=== PATIENT | female | born 1955 | race Caucasian/White ===

== ENCOUNTER → 2017-12-17 10:12 | Outpatient (CLI) | payer MEDICARE, SELFPAY ==
[2017-12-17 14:59] LABS: Absolute Lymphocyte Count 2.44 X10^3/ul (0.83-4.51); Absolute Neutrophil Count 2.7 X10^3/uL (2.0-7.7); Basophil# 0.03 X10^3/uL; Basophil% 0.5 % (0-1); Eosinophil# 0.23 X10^3/uL; Eosinophils% 3.8 % (0-5); Hematocrit 42.7 % (37-47); Hemoglobin 13.4 g/dl (12.0-15.0); Lymphocyte # 2.44 X10^3/ul (4.0); Lymphocyte % 40.5 % (19-41); Mean Corp Hgb Conc 31.4 g/gl (32-36); Mean Corpuscular Hgb 30.5 pg (27.0-32.0); Mean Platelet Vol. 12.6 fl (6.2-12.0); Monocyte# 0.62 X10^3/uL; Monocyte% 10.3 % (0-10); Neutrophil # 2.69 X10^3/uL (2.7-7.7); Neutrophil % 44.6 % (47-70); POSITIVE COUNT NO; POSITIVE DIFFERENTIAL NO; POSITIVE MORPHOLOGY NO; Platelet Count 211 K/mm3 (150-450); RBC Distribution Width CV 13.9 % (11.6-14.6); RBC Distribution Width SD 49.4 fl (35.1-43.9)
[2017-12-17 15:17] LABS: Vitamin D,25 Hydroxy 24.4 ng/mL (29.95-100.01)
[2017-12-17 15:28] LABS: ALB/GLOB Ratio 0.9 RATIO (0.9-2.4); AST(SGOT) 41 U/L (15-37); Alanine Aminotransfer ALT/SGPT 57 U/L (13-56); Albumin, Serum 3.7 g/dL (3.2-5.0); Alkaline Phosphatase 79 U/L (45-117); Anion Gap 7 (5-15); BUN 19 mg/dL (7-18); BUN/Creat Ratio 18.6 RATIO (10-20); Calcium,Total 9.1 mg/dL (8.5-10.1); Chloride 104 mmol/L (98-107); Cholesterol 190 mg/dL (200); Creatinine, Serum 1.02 mg/dL (0.55-1.02); EST Glomerular Filtration Rate 58 mL/min (>60); Est Glom Filt Rate - Afr Amer 70 mL/min (>60); Globulin 4.3 g/dL (2.2-4.2); Glucose 114 mg/dL (74-106); High Density Lipoprotein 58 mg/dL; Potassium 4.1 mmol/L (3.5-5.1); Sodium Level 139 mmol/L (136-145); Thyroid Stim Hormone (TSH) 4.65 uIU/mL (0.358-3.74); Triglycerides 180 mg/dL; Very Low Density Lipoprotein 36 mg/dL (5-40)
== END ==
PROVIDERS: Family Provider Family Medicine Geriatric Medicine; PCP Family Medicine Geriatric Medicine; Visit Provider Family Medicine Geriatric Medicine
DX: E55.9 Vitamin D deficiency, unspecified (principal); E78.4 Other hyperlipidemia; I10 Essential (primary) hypertension
CPT/HCPCS: 36415; 80053; 80061; 82306; 84443; 85025

== ENCOUNTER → 2018-03-14 10:10 | Outpatient (CLI) | payer MEDICARE, SELFPAY ==
[2018-03-14 13:20] LABS: Thyroid Stim Hormone (TSH) 1.28 uIU/mL (0.358-3.74)
== END ==
PROVIDERS: Family Provider Family Medicine Geriatric Medicine; PCP Family Medicine Geriatric Medicine; Visit Provider Family Medicine Geriatric Medicine
DX: E03.9 Hypothyroidism, unspecified (principal)
CPT/HCPCS: 36415; 84443

== ENCOUNTER → 2018-06-14 07:24 | Outpatient (CLI) | payer MEDICARE, SELFPAY | PROVIDERS: Family Provider Family Medicine Geriatric Medicine; PCP Family Medicine Geriatric Medicine; Visit Provider Internal Medicine Gastroenterology | DX: K74.60 Unspecified cirrhosis of liver (principal) | CPT/HCPCS: 76705 ==

== ENCOUNTER → 2018-06-17 11:37 | Outpatient (CLI) | payer MEDICARE, SELFPAY ==
[2018-06-17 13:31] LABS: Absolute Neutrophil Count 3.4 X10^3/uL (2.0-7.7); Basophil# 0.03 X10^3/uL; Basophil% 0.5 % (0-1); Eosinophil# 0.28 X10^3/uL; Eosinophils% 4.5 % (0-5); Hematocrit 47.1 % (37-47); Hemoglobin 15.4 g/dl (12.0-15.0); Lymphocyte % 30.8 % (19-41); Mean Corp Hgb Conc 32.7 g/gl (32-36); Mean Corpuscular Hgb 32.4 pg (27.0-32.0); Mean Corpuscular Volume 98.9 fL (81-99); Mean Platelet Vol. 13.3 fl (6.2-12.0); Monocyte# 0.56 X10^3/uL; Monocyte% 9.1 % (0-10); Neutrophil # 3.37 X10^3/uL (2.7-7.7); Neutrophil % 54.8 % (47-70); Platelet Count 182 K/mm3 (150-450); RBC Distribution Width CV 12.9 % (11.6-14.6); RBC Distribution Width SD 46.3 fl (35.1-43.9); Red Blood Count 4.76 M/mm3 (4.2-5.4); White Blood Count 6.2 K/mm3 (4.4-11.0)
[2018-06-17 13:33] LABS: POSITIVE COUNT NO; POSITIVE DIFFERENTIAL NO; POSITIVE MORPHOLOGY NO
[2018-06-17 13:54] LABS: Vitamin D,25 Hydroxy 14.2 ng/mL (29.95-100.01)
[2018-06-17 14:04] LABS: ALB/GLOB Ratio 0.9 RATIO (0.9-2.4); AST(SGOT) 90 U/L (15-37); Alanine Aminotransfer ALT/SGPT 119 U/L (13-56); Albumin, Serum 3.9 g/dL (3.2-5.0); Alkaline Phosphatase 84 U/L (45-117); Anion Gap 10 (5-15); BUN 11 mg/dL (7-18); BUN/Creat Ratio 11.3 RATIO (10-20); Calcium,Total 9.5 mg/dL (8.5-10.1); Chloride 102 mmol/L (98-107); Cholesterol 210 mg/dL (200); Creatinine, Serum 0.97 mg/dL (0.55-1.02); EST Glomerular Filtration Rate 61 mL/min (>60); Est Glom Filt Rate - Afr Amer 74 mL/min (>60); Globulin 4.5 g/dL (2.2-4.2); Glucose 116 mg/dL (74-106); High Density Lipoprotein 60 mg/dL; Potassium 4.5 mmol/L (3.5-5.1); Protein, Total 8.4 g/dL (6.4-8.2); Sodium Level 140 mmol/L (136-145); Thyroid Stim Hormone (TSH) 1.31 uIU/mL (0.358-3.74); Triglycerides 128 mg/dL; Very Low Density Lipoprotein 26 mg/dL (5-40)
== END ==
PROVIDERS: Family Provider Family Medicine Geriatric Medicine; PCP Family Medicine Geriatric Medicine; Visit Provider Family Medicine Geriatric Medicine
DX: E55.9 Vitamin D deficiency, unspecified (principal); E78.4 Other hyperlipidemia; I10 Essential (primary) hypertension
CPT/HCPCS: 36415; 80053; 80061; 82306; 84443; 85025

== ENCOUNTER → 2018-06-26 13:39 | Outpatient (CLI) | payer MEDICARE, SELFPAY ==
[2018-06-26 16:11] LABS: AST(SGOT) 93 U/L (15-37); Alanine Aminotransfer ALT/SGPT 132 U/L (13-56); Albumin, Serum 3.9 g/dL (3.2-5.0); Alkaline Phosphatase 88 U/L (45-117); Bilirubin, Direct 0.25 mg/dL (0.00-0.30); Globulin 4.2 g/dL (2.2-4.2); Protein, Total 8.1 g/dL (6.4-8.2)
[2018-06-28 11:31] LABS: AFP, Tumor Marker 1.9 ng/mL (0.0-8.3)
== END ==
PROVIDERS: Family Provider Family Medicine Geriatric Medicine; PCP Family Medicine Geriatric Medicine; Visit Provider Internal Medicine Gastroenterology
DX: K74.60 Unspecified cirrhosis of liver (principal)
CPT/HCPCS: 36415; 80076; 82105

== ENCOUNTER → 2018-12-18 10:54 | Outpatient (CLI) | payer MEDICARE, SELFPAY ==
[2017-07-30 23:32] VITALS: BMI 28.3
[2018-12-18 13:01] LABS: Absolute Lymphocyte Count 1.95 X10^3/ul (0.83-4.51); Absolute Neutrophil Count 2.8 X10^3/uL (2.0-7.7); Basophil# 0.04 X10^3/uL; Basophil% 0.7 % (0-1); Eosinophil# 0.22 X10^3/uL; Eosinophils% 3.9 % (0-5); Hematocrit 43.4 % (37-47); Lymphocyte # 1.95 X10^3/ul (4.0); Lymphocyte % 34.3 % (19-41); Mean Corp Hgb Conc 32.3 g/gl (32-36); Mean Corpuscular Hgb 33.3 pg (27.0-32.0); Mean Corpuscular Volume 103.1 fL (81-99); Mean Platelet Vol. 12.8 fl (6.2-12.0); Monocyte% 12.3 % (0-10); Neutrophil # 2.76 X10^3/uL (2.7-7.7); Neutrophil % 48.6 % (47-70); Platelet Count 152 K/mm3 (150-450); RBC Distribution Width CV 13.4 % (11.6-14.6); RBC Distribution Width SD 50.2 fl (35.1-43.9); Red Blood Count 4.21 M/mm3 (4.2-5.4); White Blood Count 5.7 K/mm3 (4.4-11.0)
[2018-12-18 13:02] LABS: POSITIVE COUNT NO; POSITIVE DIFFERENTIAL NO; POSITIVE MORPHOLOGY NO
[2018-12-18 13:18] LABS: ALB/GLOB Ratio 0.8 RATIO (0.9-2.4); AST(SGOT) 145 U/L (15-37); Alanine Aminotransfer ALT/SGPT 139 U/L (13-56); Albumin, Serum 3.7 g/dL (3.2-5.0); Alkaline Phosphatase 89 U/L (45-117); Anion Gap 11 (5-15); BUN 19 mg/dL (7-18); BUN/Creat Ratio 19.2 RATIO (10-20); Chloride 104 mmol/L (98-107); Cholesterol 182 mg/dL (200); Creatinine, Serum 0.99 mg/dL (0.55-1.02); EST Glomerular Filtration Rate 60 mL/min (>60); Est Glom Filt Rate - Afr Amer 73 mL/min (>60); Globulin 4.4 g/dL (2.2-4.2); Glucose 117 mg/dL (74-106); High Density Lipoprotein 54 mg/dL; Potassium 4.3 mmol/L (3.5-5.1); Protein, Total 8.1 g/dL (6.4-8.2); Sodium Level 140 mmol/L (136-145); Thyroid Stim Hormone (TSH) 1.45 uIU/mL (0.358-3.74); Triglycerides 99 mg/dL; Very Low Density Lipoprotein 20 mg/dL (5-40)
[2018-12-18 13:20] LABS: Vitamin D,25 Hydroxy 15.8 ng/mL (29.95-100.01)
== END ==
PROVIDERS: Family Provider Family Medicine Geriatric Medicine; PCP Family Medicine Geriatric Medicine; Visit Provider Family Medicine Geriatric Medicine
DX: E55.9 Vitamin D deficiency, unspecified (principal); E78.49 Other hyperlipidemia; I10 Essential (primary) hypertension
CPT/HCPCS: 36415; 80053; 80061; 82306; 84443; 85025

== ENCOUNTER → 2019-02-06 10:08 | Outpatient (CLI) | payer MEDICARE, SELFPAY ==
--- NOTE | 2019-02-06 10:11 | BI_ITS ---
MAMMOGRAPHY - BILATERAL SCREENING REASON FOR EXAM: Female, 63 years old. Routine annual screening examination. PERTINENT HISTORY: Non-contributory. Remote left stereotactic breast biopsy. TECHNIQUE: Digital bilateral breast jitendra (3D mammographic acquisition) in the CC and MLO projections. 2-D mediolateral oblique (MLO) and craniocaudad (CC) views of both breasts were obtained. CAD: Full Field Digital Mammography with Computer Added Detection was performed. COMPARISON: Comparison is made with prior study dated January 11, 2017 and February 09, 2015. FINDINGS: Breast Composition: The breasts are heterogeneously dense, which may obscure small masses. There are no dominant masses or suspicious calcifications. No other significant abnormalities are identified. There has been no significant change since the prior study. BI/SCREENING MAMM (CAD), BILAT IMPRESSION: Stable bilateral screening mammogram. Yearly follow-up mammogram recommended. (A) ASSESSMENT CATEGORY: BIRADS Category 1: Negative. A letter regarding these results will be sent to the patient by the facility within 30 days. Approximately 10% of breast cancers are not detected by mammography. A normal mammogram should not delay biopsy of a clinically suspicious abnormality. [id number] Electronically Signed: Juvenal Arango, at 13:13 EDT , Service support ,
== END ==
PROVIDERS: Family Provider Family Medicine Geriatric Medicine; PCP Family Medicine Geriatric Medicine; Referring Provider Family Medicine Geriatric Medicine; Visit Provider Family Medicine Geriatric Medicine
DX: Z12.31 Encounter for screening mammogram for malignant neoplasm of breast (principal)
CPT/HCPCS: 77063; 77067

== ENCOUNTER → 2019-03-13 11:04 | Outpatient (CLI) | payer MEDICARE, SELFPAY ==
[2017-07-30 23:32] VITALS: BMI 28.3
[2019-03-13 12:44] LABS: AST(SGOT) 153 U/L (15-37); Alanine Aminotransfer ALT/SGPT 147 U/L (13-56); Albumin, Serum 3.6 g/dL (3.2-5.0); Alkaline Phosphatase 75 U/L (45-117); Bilirubin, Direct 0.22 mg/dL (0.00-0.30); Globulin 4.5 g/dL (2.2-4.2); Protein, Total 8.1 g/dL (6.4-8.2)
[2019-03-13 12:47] LABS: Absolute Lymphocyte Count 1.55 X10^3/ul (0.83-4.51); Absolute Neutrophil Count 4.4 X10^3/uL (2.0-7.7); Basophil# 0.03 X10^3/uL; Basophil% 0.4 % (0-1); Eosinophil# 0.09 X10^3/uL; Eosinophils% 1.3 % (0-5); Hematocrit 44.4 % (37-47); Hemoglobin 14.7 g/dl (12.0-15.0); Lymphocyte # 1.55 X10^3/ul (4.0); Lymphocyte % 22.8 % (19-41); Mean Corp Hgb Conc 33.1 g/gl (32-36); Mean Corpuscular Volume 99.6 fL (81-99); Mean Platelet Vol. 12.9 fl (6.2-12.0); Monocyte# 0.77 X10^3/uL; Monocyte% 11.3 % (0-10); Neutrophil # 4.35 X10^3/uL (2.7-7.7); Neutrophil % 63.9 % (47-70); Platelet Count 147 K/mm3 (150-450); RBC Distribution Width CV 12.7 % (11.6-14.6); RBC Distribution Width SD 45.8 fl (35.1-43.9); Red Blood Count 4.46 M/mm3 (4.2-5.4); White Blood Count 6.8 K/mm3 (4.4-11.0)
[2019-03-13 13:03] LABS: POSITIVE COUNT NO; POSITIVE DIFFERENTIAL NO; POSITIVE MORPHOLOGY NO
[2019-03-13 13:36] LABS: HIV - WCH Non-Reactive (Nonreactive)
[2019-03-18 08:09] LABS: HCV Quant. RNA PCR HCV Not Detected IU/mL (.); HEPATITIS B SURFACE AG Negative (Negative); QNTFERON TB Mitogen Value > 10.00 IU/mL (.); QNTFERON TB Nil Value 0.05 IU/mL (.); QNTFERON TB1+ Ag Value 0.04 IU/mL (.); QNTFERON TB2+ Ag Value 0.03 IU/mL (.)
[2019-03-18 16:43] LABS: AFP, Tumor Marker 2.2 ng/mL (0.0-8.3); Hep B Surface Antibodies Non Reactive (.); Hep C Antibodies >11.0 s/co ratio (0.0-0.9); Hepatitis B Core Ab Total Negative (Negative); QNTIFERON TB Positive Criteria Negative (Negative)
== END ==
PROVIDERS: Family Provider Family Medicine Geriatric Medicine; PCP Family Medicine Geriatric Medicine; Referring Provider Dermatology; Visit Provider Dermatology
DX: Z79.899 Other long term (current) drug therapy (principal); L40.0 Psoriasis vulgaris; L40.59 Other psoriatic arthropathy; L29.8 Other pruritus; K74.60 Unspecified cirrhosis of liver
CPT/HCPCS: 36415; 80076; 82105; 85025; 86480; 86703; 86704; 86706; 86803; 87340; 87522

== ENCOUNTER → 2019-06-20 08:39 | Outpatient (CLI) | payer MEDICARE, SELFPAY ==
[2017-07-30 23:32] VITALS: BMI 28.3
[2019-06-20 13:26] LABS: Absolute Lymphocyte Count 1.76 X10^3/uL (0.83-4.51); Absolute Neutrophil Count 4.3 X10^3/uL (2.0-7.7); Basophil# 0.06 X10^3/uL; Basophil% 0.8 % (0-1); Eosinophils% 2.8 % (0-5); Hematocrit 45.4 % (37-47); Hemoglobin 14.9 g/dL (12.0-15.0); Lymphocyte # 1.76 X10^3/ul (4.0); Lymphocyte % 24.7 % (19-41); Mean Corp Hgb Conc 32.8 g/dL (32-36); Mean Corpuscular Hgb 34.5 pg (27.0-32.0); Mean Corpuscular Volume 105.1 fL (81-99); Mean Platelet Vol. 13.2 fl (6.2-12.0); Monocyte% 11.2 % (0-10); NRBC Flagged by Analyzer 0 % (0-5); Neutrophil # 4.29 X10^3/uL (2.7-7.7); Neutrophil % 60.2 % (47-70); Platelet Count 165 K/mm3 (150-450); RBC Distribution Width CV 12.2 % (11.6-14.6); RBC Distribution Width SD 47.8 fl (35.1-43.9); Red Blood Count 4.32 M/mm3 (4.2-5.4); White Blood Count 7.1 K/mm3 (4.4-11.0)
[2019-06-20 13:41] LABS: Vitamin D,25 Hydroxy 22.8 ng/mL (29.95-100.01)
[2019-06-20 13:48] LABS: ALB/GLOB Ratio 0.8 RATIO (0.9-2.4); AST(SGOT) 182 U/L (15-37); Alanine Aminotransfer ALT/SGPT 189 U/L (13-56); Albumin, Serum 3.7 g/dL (3.2-5.0); Alkaline Phosphatase 80 U/L (45-117); Anion Gap 9 (5-15); BUN 11 mg/dL (7-18); BUN/Creat Ratio 11.4 RATIO (10-20); Calcium,Total 8.8 mg/dL (8.5-10.1); Chloride 106 mmol/L (98-107); Cholesterol 200 mg/dL (200); Creatinine, Serum 0.96 mg/dL (0.55-1.02); EST Glomerular Filtration Rate 62 mL/min (>60); Est Glom Filt Rate - Afr Amer 75 mL/min (>60); Globulin 4.5 g/dL (2.2-4.2); Glucose 126 mg/dL (74-106); High Density Lipoprotein 45 mg/dL; Potassium 3.7 mmol/L (3.5-5.1); Protein, Total 8.2 g/dL (6.4-8.2); Sodium Level 139 mmol/L (136-145); Thyroid Stim Hormone (TSH) 1.32 uIU/mL (0.358-3.74); Triglycerides 134 mg/dL; Very Low Density Lipoprotein 27 mg/dL (5-40)
== END ==
PROVIDERS: Family Provider Family Medicine Geriatric Medicine; PCP Family Medicine Geriatric Medicine; Visit Provider Family Medicine Geriatric Medicine
DX: E55.9 Vitamin D deficiency, unspecified (principal); E78.5 Hyperlipidemia, unspecified; I10 Essential (primary) hypertension
CPT/HCPCS: 36415; 80053; 80061; 82306; 84443; 85025

== ENCOUNTER 2019-07-28 10:48 | Emergency (ER) | payer MEDICARE, SELFPAY ==
[2019-07-28 10:49] VITALS: BP 143/75; PULSE 86; RESP 17; TEMP 36.6; O2SAT 96; BMI 31.1
[2019-07-28 11:19] LABS: Absolute Lymphocyte Count 2.03 X10^3/uL (0.83-4.51); Absolute Neutrophil Count 4.2 X10^3/uL (2.0-7.7); Basophil# 0.04 X10^3/uL; Basophil% 0.5 % (0-1); Eosinophil# 0.37 X10^3/uL; Hematocrit 46.6 % (37-47); Hemoglobin 15.1 g/dL (12.0-15.0); Lymphocyte # 2.03 X10^3/ul (4.0); Lymphocyte % 27.6 % (19-41); Mean Corp Hgb Conc 32.4 g/dL (32-36); Mean Corpuscular Hgb 32.5 pg (27.0-32.0); Mean Corpuscular Volume 100.4 fL (81-99); Mean Platelet Vol. 12.1 fl (6.2-12.0); Monocyte# 0.68 X10^3/uL; Monocyte% 9.3 % (0-10); NRBC Flagged by Analyzer 0 % (0-5); Neutrophil % 57.2 % (47-70); Platelet Count 166 K/mm3 (150-450); RBC Distribution Width CV 11.3 % (11.6-14.6); RBC Distribution Width SD 41.9 fl (35.1-43.9); Red Blood Count 4.64 M/mm3 (4.2-5.4); White Blood Count 7.4 K/mm3 (4.4-11.0)
[2019-07-28 11:31] LABS: AST(SGOT) 60 U/L (15-37); Alanine Aminotransfer ALT/SGPT 63 U/L (13-56); Albumin, Serum 3.4 g/dL (3.2-5.0); Alkaline Phosphatase 78 U/L (45-117); Anion Gap 6 (5-15); BUN 12 mg/dL (7-18); BUN/Creat Ratio 12.1 RATIO (10-20); Bilirubin, Direct 0.15 mg/dL (0.00-0.30); Calcium,Total 9.3 mg/dL (8.5-10.1); Chloride 109 mmol/L (98-107); Creatinine, Serum 0.99 mg/dL (0.55-1.02); EST Glomerular Filtration Rate 60 mL/min (>60); Est Glom Filt Rate - Afr Amer 72 mL/min (>60); Estimated Creatinine Clearance 43.32 ml/min; Globulin 4.3 g/dL (2.2-4.2); Glucose 131 mg/dL (74-106); Lipase 186 U/L (73-393); Potassium 3.7 mmol/L (3.5-5.1); Protein, Total 7.7 g/dL (6.4-8.2); Sodium Level 140 mmol/L (136-145)
[2019-07-28 11:54] LABS: Mucous, Urine 0 SEEN /hpf (<or=2+); Red Blood Cells-Urine 0 SEEN /hpf (0-5)
[2019-07-28 11:59] LABS: Color, Urine Yellow (Yellow); Glucose, Dipstick Normal (Normal); Ketone-Dipstick Negative (Negative); Leukocyte Esterase-Dipstick 100 /ul (Negative); Nitrite-Dipstick Negative (Negative); Occult Blood-Urine Negative /ul (Negative); Protein-Dipstick Negative (Negative); Urine Bilirubin Dipstick Negative (Negative); Urine Clarity Sl. Cloudy (Clear); Urine Urobilinogen Normal (Normal)
[2019-07-28 12:04] LABS: Squamous Epithelial Cells - UA 0-5 SEEN /hpf (5-10); White Blood Cells 5-10 SEEN /hpf (0-5)
[2019-07-28 12:05] LABS: Bacteria 1+ /hpf (None Seen)
[2019-07-28 12:11] VITALS: PULSE 81; RESP 14
--- NOTE | 2019-07-28 12:11 | ED.DCSUM_ITS ---
- ER Visit Summary Date of Service: 07/28/19 Chief Complaint: Urinary frequency History of Present Illness: The patient is a 63 F presents the emergency department for the evaluation of intermittent flank pain and urinary frequency. This is been present for about 2 weeks. She denies any fevers nausea or v omiting. She reports a history of chronic bronchitis GERD hepatitis C and hypercholesterolemia. She tells me that she has known gallstones but has been able to eat okay. She sees Dr. Jimenez for her hepatitis. History of strong alcohol use but states she does not have any ascites. Physical Examination: Afebrile vital signs stable Gen: Well-nourished well-developed Head: Normocephalic atraumatic Eyes: Perrl EOMI ENT: TMs clear no rhinorrhea moist mucous membranes Neck: Supple no lymphadenopathy no JVD nontender CVS: Regular rate rhythm no murmurs normal S1-S2 Respiratory: No distress clear to auscultation bilaterally chest nontender Abdomen: Soft nontender nondistended normal bowel sounds no masses Back: Nontender pacifically no right-sided CVA tenderness Extremity: Nontender no edema Skin: Normal color no rash Neuro: alert orientated ?3 CN II-XII intact normal strength sensation Psych: Normal affect normal mood Test Results: Count is normal. Liver enzymes essentially within the normal range. Urinalysis does shows 5-10 white cells 1+ bacteria and positive leukocyte esterase. Emergency Department Course and Treatment: Urine will be sent for culture. Patient presents with flank pain urinary frequency and had some dysuria but that has improved. It is reasonable to place her on an antibiotic for a few days see if this fully resolves her symptoms and have her follow-up if not improving patient is comfortable with this plan Impression: 1. UTI 2. Right flank pain This note was generated with 48domain dictation software. It may contain incorrect words, spelling, and punctuation that were not noted in review of the chart prior to signing ED Disposition - Plan for ED Patient: Disposition: Home or Assisted Living Instructions: Understanding Urinary Tract Infections (UTIs) Prescriptions: Cephalexin [Keflex] 500 mg PO Q12 #10 cap Prescription Printed Referrals: Zachariah Arce Chi, MD [Primary Care Provider] - 3-5 Days if not improving
== END 2019-07-28 12:39 | disposition home or self-care (01) ==
PROVIDERS: Emergency Provider Emergency Medicine; Family Provider Family Medicine Geriatric Medicine; PCP Family Medicine Geriatric Medicine
DX: N39.0 Urinary tract infection, site not specified (principal); E78.00 Pure hypercholesterolemia, unspecified; K21.9 Gastro-esophageal reflux disease without esophagitis; B19.20 Unspecified viral hepatitis C without hepatic coma; F32.9 Major depressive disorder, single episode, unspecified; Z79.899 Other long term (current) drug therapy; Z87.891 Personal history of nicotine dependence
CPT/HCPCS: 80048; 80076; 81001; 83690; 85025; 87086; 87088; 87186; 99284; A4216

== ENCOUNTER 2019-08-08 09:31 | Emergency (ER) | payer MEDICARE, SELFPAY ==
[2019-08-08 09:33] VITALS: BP 141/85; PULSE 80; RESP 16; TEMP 36.6; O2SAT 96; BMI 31.1
--- NOTE | 2019-08-08 09:42 | CT_ITS ---
STUDY: CT ABDOMEN AND PELVIS WITHOUT CONTRAST REASON FOR EXAM: Female, 63 years old. Abdominal pain and distention. History of recent UTI. RADIATION DOSAGE (If Supplied By Facility): CTDIvol = ( 18.82 ) mGy, DLP = ( 1061.56 ) mGycm TECHNIQUE: Transaxial images were obtained from the dome of the diaphragm to the symphysis pubis without oral contrast, and without intravenous contrast. Sagittal and coronal images were reconstructed. Individualized dose optimization techniques were used for this CT. COMPARISON: Comparison is made with prior study dated March 17, 2014. FINDINGS: Mild scarring at the lung bases. Calcification of the mitral valve annulus. Normal liver. There are multiple gallstones. Normal spleen. Normal pancreas. Normal bilateral adrenal glands. Normal right kidney. There is a 1.4 cm cyst in the anterior midportion of the left kidney. There is a small hiatal hernia. Normal small intestine. There is diverticulosis, with thickening of the colon wall, and pericolonic inflammation changes consistent with acute diverticulitis. Mild increased markings are seen in the surrounding fat as well as some minimal degree of fluid is seen in the pelvis. The appendix is visualized and appears normal. There is diffuse atherosclerotic calcification of the abdominal aorta, without a demonstrated aneurysm. Normal inferior vena cava. There is borderline retroperitoneal lymphadenopathy with enlarged nodes no greater than 10mm in the short axis diameter. Normal urinary bladder. There is absence of the uterus consistent with a prior hysterectomy. Normal abdominal wall. There are degenerative changes of the visualized lumbar spine. Grade 1 anterior listhesis of L5 on S1 with spondylolysis of the pars interarticularis of the L5 vertebrae. Disc space narrowing and disc degeneration. CT/Abdomen/Pelvis W IV Cont ONLY IMPRESSION: Multiple gallstones. Small left renal cyst. Findings in keeping with a noncomplicated acute sigmoid diverticulitis. Small amount of fluid is seen in the cul-de-sac. Electronically Signed: Juvenal Arango, at 10:51 EDT , Service support ,
--- NOTE | 2019-08-08 09:44 | ED.VISSUMM ---
- ER Visit Summary Date of Service: 08/08/19 Chief Complaint: Abdominal pain History of Present Illness: The patient is a 63 F who woke up with upper abdominal pain this morning. Worse with food. Nothing seems to make it better. Associated with bloating, heartburn, nausea, and diarrhea. She is concerned it may be her gallbladder. She denies any specific gallbladder pathology. Remote history of hysterectomy. Recent history of UTI, status post antibiotics. No fevers or other associated symptoms. Physical Examination: Afebrile and vital signs unremarkable. Patient appears uncomfortable, moving slowly and appears uncomfortable with movement. Heart regular. Lungs clear. Back is nontender. Abdomen is mildly distended, diffusely tender, worse in the upper hemiabdomen. Skin normal without jaundice. Test Results: Labs, urinalysis, CT pending. Emergency Department Course and Treatment: Patient treated with fluids, morphine, Zofran while awaiting imaging, labs, urine. Lab work all fairly unremarkable. Macro urinalysis is unremarkable. CT shows gallstones and a left renal cyst with signs of acute uncomplicated sigmoid diverticulitis. While the patient has gallstones, her pain is diffuse. She has bloating and diarrhea. I believe her symptoms are from diverticulitis. We will treat with Cipro and Flagyl. We will also treat with pain medicine and nausea medicine. She will follow-up with GI. Patient was advised that diverticulitis can develop complications like abscess and perforation. She also was advised that patients can sometimes require inpatient medical care. Patient will return if she has any new or worsening issues. Treatment Plan: As above Disposition: Discharge Impression: 1. Diverticulitis 2. Gallstones This note was generated with Keelr dictation software. It may contain incorrect words, spelling, and punctuation that were not noted in review of the chart prior to signing ED Disposition - Plan for ED Patient: Referrals: Zachariah Arce Chi, MD [Primary Care Provider] -
[2019-08-08] MEDS: 0.9% Normal Saline 1,000 ML 1000 ML IV (09:58)
[2019-08-08] MEDS: Ondansetron 4 MG/2 ML Vial IV (09:58)
[2019-08-08] MEDS: Morphine 4 MG/ML Syringe IV (09:58)
[2019-08-08 10:01] LABS: Absolute Lymphocyte Count 1.69 X10^3/uL (0.83-4.51); Absolute Neutrophil Count 2.4 X10^3/uL (2.0-7.7); Basophil# 0.06 X10^3/uL; Basophil% 1.2 % (0-1); Eosinophils% 7.8 % (0-5); Hematocrit 43.7 % (37-47); Hemoglobin 14.2 g/dL (12.0-15.0); Lymphocyte # 1.69 X10^3/ul (4.0); Lymphocyte % 32.8 % (19-41); Mean Corp Hgb Conc 32.5 g/dL (32-36); Mean Corpuscular Hgb 32.3 pg (27.0-32.0); Mean Corpuscular Volume 99.3 fL (81-99); Mean Platelet Vol. 11.9 fl (6.2-12.0); Monocyte# 0.61 X10^3/uL; Monocyte% 11.8 % (0-10); NRBC Flagged by Analyzer 0 % (0-5); Neutrophil # 2.37 X10^3/uL (2.7-7.7); Platelet Count 174 K/mm3 (150-450); RBC Distribution Width CV 11.2 % (11.6-14.6); RBC Distribution Width SD 41.1 fl (35.1-43.9); White Blood Count 5.2 K/mm3 (4.4-11.0)
[2019-08-08 10:17] LABS: ALB/GLOB Ratio 0.9 RATIO (0.9-2.4); AST(SGOT) 55 U/L (15-37); Alanine Aminotransfer ALT/SGPT 50 U/L (13-56); Albumin, Serum 3.5 g/dL (3.2-5.0); Alkaline Phosphatase 69 U/L (45-117); Anion Gap 6 (5-15); BUN 12 mg/dL (7-18); BUN/Creat Ratio 12.8 RATIO (10-20); Chloride 106 mmol/L (98-107); Creatinine, Serum 0.94 mg/dL (0.55-1.02); EST Glomerular Filtration Rate 64 mL/min (>60); Est Glom Filt Rate - Afr Amer 77 mL/min (>60); Estimated Creatinine Clearance 45.62 ml/min; Globulin 3.9 g/dL (2.2-4.2); Glucose 100 mg/dL (74-106); Lipase 200 U/L (73-393); Potassium 3.9 mmol/L (3.5-5.1); Protein, Total 7.4 g/dL (6.4-8.2); Sodium Level 141 mmol/L (136-145)
[2019-08-08 11:00] LABS: Bacteria 0 SEEN /hpf (None Seen); Mucous, Urine 0 SEEN /hpf (<or=2+); Red Blood Cells-Urine 0 SEEN /hpf (0-5); White Blood Cells 0 SEEN /hpf (0-5)
[2019-08-08 11:03] LABS: Color, Urine Yellow (Yellow); Glucose, Dipstick Normal (Normal); Ketone-Dipstick Negative (Negative); Specific Gravity, Urine 1.005 (1.002-1.030); Urine Bilirubin Dipstick Negative (Negative); Urine Clarity Sl. Cloudy (Clear)
[2019-08-08 11:04] LABS: Leukocyte Esterase-Dipstick Negative /ul (Negative); Nitrite-Dipstick Negative (Negative); Occult Blood-Urine Negative /ul (Negative); Protein-Dipstick Negative (Negative); Urine Urobilinogen Normal (Normal)
[2019-08-08 11:09] LABS: Squamous Epithelial Cells - UA 0-5 SEEN /hpf (5-10)
--- NOTE | 2019-08-08 11:10 | ED.DEP ---
ED Disposition - Plan for ED Patient: Instructions: Understanding Diverticulosis and Diverticulitis Prescriptions: Ciprofloxacin [Cipro] 500 mg PO BID #20 tab Prescription Printed metroNIDAZOLE [Flagyl] 500 mg PO Q8H #30 tab Prescription Printed Oxycodone HCl/Acetaminophen [Percocet 5/325] 1 tab PO Q6H PRN PRN 3 Days #12 tab PRN Reason: Pain Prescription Printed Ondansetron [Zofran Odt] 4 mg PO Q8H PRN PRN #10 tab PRN Reason: Nausea Prescription Printed Referrals: Francis Jimenez MD [NON-STAFF] -
[2019-08-08] MEDS: Ciprofloxacin 500 MG Tablet PO (11:33)
[2019-08-08] MEDS: metroNIDAZOLE 500 MG Tablet PO (11:33)
[2019-08-08 11:35] VITALS: BP 124/77; PULSE 77; RESP 18; O2SAT 99
== END 2019-08-08 11:36 | disposition home or self-care (01) ==
PROVIDERS: Emergency Provider Emergency Medicine; Family Provider Family Medicine Geriatric Medicine; PCP Family Medicine Geriatric Medicine
DX: K57.32 Diverticulitis of large intestine without perforation or abscess without bleeding (principal); K80.20 Calculus of gallbladder without cholecystitis without obstruction; K21.9 Gastro-esophageal reflux disease without esophagitis; E03.9 Hypothyroidism, unspecified; Z79.899 Other long term (current) drug therapy; Z87.891 Personal history of nicotine dependence
CPT/HCPCS: 74177; 80053; 81001; 83690; 85025; 96361; 96374; 96375; 99284; J7030; Q9967; A4216; J2405

== ENCOUNTER → 2019-08-14 13:42 | Outpatient (CLI) | payer MEDICARE, SELFPAY ==
[2019-08-08 09:33] VITALS: BMI 31.1
--- NOTE | 2019-08-14 13:46 | RAD_ITS ---
STUDY: X-RAY - ABDOMEN/PELVIS REASON FOR EXAM: Female, 63 years old. Fecal impaction, diarrhea, diverticulitis. TECHNIQUE: Two AP supine views of the abdomen and pelvis. COMPARISON: None. FINDINGS: Normal visualized lung bases. Pattern within the bowel, reaching maximum diameter of 2.8 cm in the left abdomen. There is no demonstrated free abdominal air. The visualized liver, spleen and kidneys are grossly normal in size and morphology. Normal soft tissue structures. There are diffuse degenerative changes of the visualized lumbar spine. RAD/Abdomen Single View IMPRESSION: Mild distention of the small bowel loops, cannot exclude early obstruction versus ileus. Clinical correlation recommended. No free air. Electronically Signed: Katelynn Shearer MD at 2:53 EDT , Service support ,
== END ==
PROVIDERS: Family Provider Family Medicine Geriatric Medicine; PCP Family Medicine Geriatric Medicine; Referring Provider Family Medicine Geriatric Medicine; Visit Provider Family Medicine Geriatric Medicine
DX: K56.41 Fecal impaction (principal)
CPT/HCPCS: 74018

== ENCOUNTER → 2019-12-02 10:22 | Outpatient (CLI) | payer MEDICARE, SELFPAY ==
[2019-12-02 13:01] LABS: Absolute Lymphocyte Count 1.56 X10^3/uL (0.83-4.51); Absolute Neutrophil Count 3.1 X10^3/uL (2.0-7.7); Basophil# 0.05 X10^3/uL; Basophil% 0.9 % (0-1); Eosinophil# 0.21 X10^3/uL; Eosinophils% 3.8 % (0-5); Hematocrit 44.7 % (37-47); Hemoglobin 14.5 g/dL (12.0-15.0); Lymphocyte # 1.56 X10^3/ul (4.0); Mean Corp Hgb Conc 32.4 g/dL (32-36); Mean Corpuscular Hgb 31.9 pg (27.0-32.0); Mean Corpuscular Volume 98.2 fL (81-99); Mean Platelet Vol. 12.2 fl (6.2-12.0); Monocyte# 0.68 X10^3/uL; Monocyte% 12.2 % (0-10); NRBC Flagged by Analyzer 0 % (0-5); Neutrophil # 3.05 X10^3/uL (2.7-7.7); Neutrophil % 54.7 % (47-70); Platelet Count 155 K/mm3 (150-450); RBC Distribution Width CV 13.2 % (11.6-14.6); RBC Distribution Width SD 47.4 fl (35.1-43.9); Red Blood Count 4.55 M/mm3 (4.2-5.4); White Blood Count 5.6 K/mm3 (4.4-11.0)
[2019-12-02 13:39] LABS: AST(SGOT) 141 U/L (15-37); Alanine Aminotransfer ALT/SGPT 150 U/L (13-56); Albumin, Serum 3.9 g/dL (3.2-5.0); Alkaline Phosphatase 85 U/L (45-117); Bilirubin, Direct 0.22 mg/dL (0.00-0.30); Globulin 4.3 g/dL (2.2-4.2); Protein, Total 8.2 g/dL (6.4-8.2)
== END ==
PROVIDERS: PCP Family Medicine Geriatric Medicine; Referring Provider Dermatology; Visit Provider Dermatology
DX: Z79.899 Other long term (current) drug therapy (principal); L40.0 Psoriasis vulgaris; L40.59 Other psoriatic arthropathy; L53.8 Other specified erythematous conditions; D18.01 Hemangioma of skin and subcutaneous tissue; R20.8 Other disturbances of skin sensation
CPT/HCPCS: 36415; 80076; 85025

== ENCOUNTER → 2019-12-22 10:56 | Outpatient (CLI) | payer MEDICARE, SELFPAY ==
[2019-12-22 12:26] LABS: Absolute Lymphocyte Count 1.72 X10^3/uL (0.83-4.51); Absolute Neutrophil Count 3.7 X10^3/uL (2.0-7.7); Basophil# 0.05 X10^3/uL; Basophil% 0.8 % (0-1); Eosinophil# 0.16 X10^3/uL; Eosinophils% 2.5 % (0-5); Hematocrit 44.7 % (37-47); Hemoglobin 14.5 g/dL (12.0-15.0); Lymphocyte # 1.72 X10^3/ul (4.0); Lymphocyte % 27.2 % (19-41); Mean Corp Hgb Conc 32.4 g/dL (32-36); Mean Corpuscular Volume 98.7 fL (81-99); Mean Platelet Vol. 12.6 fl (6.2-12.0); Monocyte# 0.65 X10^3/uL; Monocyte% 10.3 % (0-10); NRBC Flagged by Analyzer 0 % (0-5); Neutrophil # 3.73 X10^3/uL (2.7-7.7); Platelet Count 133 K/mm3 (150-450); RBC Distribution Width SD 46.3 fl (35.1-43.9); Red Blood Count 4.53 M/mm3 (4.2-5.4); White Blood Count 6.3 K/mm3 (4.4-11.0)
[2019-12-22 12:35] LABS: Vitamin D,25 Hydroxy 23.6 ng/mL
[2019-12-22 12:42] LABS: ALB/GLOB Ratio 0.9 RATIO (0.9-2.4); AST(SGOT) 118 U/L (15-37); Alanine Aminotransfer ALT/SGPT 129 U/L (13-56); Albumin, Serum 3.8 g/dL (3.2-5.0); Alkaline Phosphatase 95 U/L (45-117); Anion Gap 8 (5-15); BUN 11 mg/dL (7-18); BUN/Creat Ratio 12.7 RATIO (10-20); Calcium,Total 8.9 mg/dL (8.5-10.1); Chloride 104 mmol/L (98-107); Cholesterol 215 mg/dL (200); Creatinine, Serum 0.87 mg/dL (0.55-1.02); EST Glomerular Filtration Rate 70 mL/min (>60); Est Glom Filt Rate - Afr Amer 84 mL/min (>60); Globulin 4.4 g/dL (2.2-4.2); Glucose 124 mg/dL (74-106); High Density Lipoprotein 56 mg/dL; Potassium 3.5 mmol/L (3.5-5.1); Protein, Total 8.2 g/dL (6.4-8.2); Sodium Level 140 mmol/L (136-145); Triglycerides 103 mg/dL; Very Low Density Lipoprotein 21 mg/dL (5-40)
== END ==
PROVIDERS: PCP Family Medicine Geriatric Medicine; Visit Provider Family Medicine Geriatric Medicine
DX: E55.9 Vitamin D deficiency, unspecified (principal); E78.5 Hyperlipidemia, unspecified; I10 Essential (primary) hypertension
CPT/HCPCS: 36415; 80053; 80061; 82306; 84443; 84550; 85025

== ENCOUNTER → 2020-06-22 10:32 | Outpatient (CLI) | payer MEDICARE, SELFPAY ==
[2020-06-22 12:25] LABS: Absolute Lymphocyte Count 2.21 X10^3/uL (0.83-4.51); Basophil# 0.04 X10^3/uL; Basophil% 0.7 % (0-1); Eosinophil# 0.28 X10^3/uL; Eosinophils% 4.6 % (0-5); Hematocrit 41.2 % (37-47); Hemoglobin 13.6 g/dL (12.0-15.0); Lymphocyte # 2.21 X10^3/ul (4.0); Lymphocyte % 36.2 % (19-41); Mean Corpuscular Hgb 33.7 pg (27.0-32.0); Mean Platelet Vol. 13.3 fl (6.2-12.0); Monocyte# 0.55 X10^3/uL; NRBC Flagged by Analyzer 0 % (0-5); Neutrophil # 3.01 X10^3/uL (2.7-7.7); Neutrophil % 49.2 % (47-70); Platelet Count 159 K/mm3 (150-450); RBC Distribution Width CV 12.5 % (11.6-14.6); RBC Distribution Width SD 46.5 fl (35.1-43.9); Red Blood Count 4.04 M/mm3 (4.2-5.4); White Blood Count 6.1 K/mm3 (4.4-11.0)
[2020-06-22 12:40] LABS: Vitamin D,25 Hydroxy 34.7 ng/mL
[2020-06-22 12:51] LABS: ALB/GLOB Ratio 0.8 RATIO (0.9-2.4); AST(SGOT) 72 U/L (15-37); Alanine Aminotransfer ALT/SGPT 56 U/L (13-56); Albumin, Serum 3.3 g/dL (3.2-5.0); Alkaline Phosphatase 73 U/L (45-117); Anion Gap 5 (5-15); BUN 11 mg/dL (7-18); BUN/Creat Ratio 11.7 RATIO (10-20); Calcium,Total 9.1 mg/dL (8.5-10.1); Chloride 112 mmol/L (98-107); Cholesterol 105 mg/dL (200); Creatinine, Serum 0.94 mg/dL (0.55-1.02); EST Glomerular Filtration Rate 64 mL/min (>60); Est Glom Filt Rate - Afr Amer 77 mL/min (>60); Globulin 4.2 g/dL (2.2-4.2); Glucose 100 mg/dL (74-106); High Density Lipoprotein 29 mg/dL; Potassium 3.6 mmol/L (3.5-5.1); Protein, Total 7.5 g/dL (6.4-8.2); Sodium Level 142 mmol/L (136-145); Thyroid Stim Hormone (TSH) 1.75 uIU/mL (0.358-3.74); Triglycerides 125 mg/dL; Very Low Density Lipoprotein 25 mg/dL (5-40)
== END ==
PROVIDERS: PCP Family Medicine Geriatric Medicine; Visit Provider Family Medicine Geriatric Medicine
DX: E55.9 Vitamin D deficiency, unspecified (principal); E78.5 Hyperlipidemia, unspecified; I10 Essential (primary) hypertension
CPT/HCPCS: 36415; 80053; 80061; 82306; 84443; 85025

== ENCOUNTER → 2020-07-12 11:32 | Outpatient (CLI) | payer MEDICARE, SELFPAY ==
[2020-07-12 12:18] LABS: Absolute Lymphocyte Count 2.33 X10^3/uL (0.83-4.51); Absolute Neutrophil Count 3.3 X10^3/uL (2.0-7.7); Basophil# 0.04 X10^3/uL; Basophil% 0.6 % (0-1); Hematocrit 42.4 % (37-47); Hemoglobin 13.3 g/dL (12.0-15.0); Lymphocyte # 2.33 X10^3/ul (4.0); Lymphocyte % 34.4 % (19-41); Mean Corp Hgb Conc 31.4 g/dL (32-36); Mean Corpuscular Hgb 30.7 pg (27.0-32.0); Mean Corpuscular Volume 97.9 fL (81-99); Monocyte# 0.91 X10^3/uL; Monocyte% 13.4 % (0-10); NRBC Flagged by Analyzer 0 % (0-5); Neutrophil # 3.27 X10^3/uL (2.7-7.7); Neutrophil % 48.3 % (47-70); Platelet Count 147 K/mm3 (150-450); RBC Distribution Width CV 12.4 % (11.6-14.6); RBC Distribution Width SD 44.5 fl (35.1-43.9); Red Blood Count 4.33 M/mm3 (4.2-5.4); White Blood Count 6.8 K/mm3 (4.4-11.0)
[2020-07-12 13:43] LABS: AST(SGOT) 53 U/L (15-37); Alanine Aminotransfer ALT/SGPT 49 U/L (13-56); Albumin, Serum 3.5 g/dL (3.2-5.0); Alkaline Phosphatase 73 U/L (45-117); Bilirubin, Direct 0.21 mg/dL (0.00-0.30); Globulin 4.1 g/dL (2.2-4.2); Protein, Total 7.6 g/dL (6.4-8.2)
[2020-07-15 14:09] LABS: QNTFERON TB Mitogen Value > 10.00 IU/mL (.); QNTFERON TB Nil Value 0.06 IU/mL (.); QNTFERON TB1+ Ag Value 0.06 IU/mL (.); QNTFERON TB2+ Ag Value 0.06 IU/mL (.)
[2020-07-15 14:38] LABS: QNTIFERON TB Positive Criteria Negative (Negative)
== END ==
PROVIDERS: PCP Family Medicine Geriatric Medicine; Referring Provider Dermatology; Visit Provider Dermatology
DX: Z79.899 Other long term (current) drug therapy (principal); L40.0 Psoriasis vulgaris; L40.59 Other psoriatic arthropathy
CPT/HCPCS: 36415; 80076; 85025; 86480; 87521

== ENCOUNTER → 2021-09-05 09:42 | Outpatient (CLI) | payer MEDICARE, SELFPAY ==
[2021-09-05 12:38] LABS: Absolute Lymphocyte Count 1.53 X10^3/uL (0.83-4.51); Absolute Neutrophil Count 4.9 X10^3/uL (2.0-7.7); Basophil# 0.06 X10^3/uL; Basophil% 0.8 % (0-1); Eosinophil# 0.05 X10^3/uL; Eosinophils% 0.7 % (0-5); Hematocrit 42.8 % (37-47); Hemoglobin 13.8 g/dL (12.0-15.0); Lymphocyte # 1.53 X10^3/ul (0.83-4.51); Lymphocyte % 21.1 % (19-41); Mean Corp Hgb Conc 32.2 g/dL (32-36); Mean Corpuscular Hgb 30.7 pg (27.0-32.0); Mean Corpuscular Volume 95.3 fL (81-99); Mean Platelet Vol. 13.3 fl (6.2-12.0); Monocyte# 0.68 X10^3/uL; Monocyte% 9.4 % (0-10); NRBC Flagged by Analyzer 0 % (0-5); Neutrophil # 4.91 X10^3/uL (2.7-7.7); Neutrophil % 67.6 % (47-70); Platelet Count 136 K/mm3 (150-450); RBC Distribution Width CV 14.6 % (11.6-14.6); RBC Distribution Width SD 51.4 fl (35.1-43.9); Red Blood Count 4.49 M/mm3 (4.2-5.4); White Blood Count 7.3 K/mm3 (4.4-11.0)
[2021-09-05 12:46] LABS: Vitamin D,25 Hydroxy 14.6 ng/mL
[2021-09-05 12:59] LABS: AST(SGOT) 46 U/L (15-37); Alanine Aminotransfer ALT/SGPT 49 U/L (13-56); Albumin, Serum 3.5 g/dL (3.2-5.0); Alkaline Phosphatase 80 U/L (45-117); Anion Gap 6 (5-15); BUN 20 mg/dL (7-18); BUN/Creat Ratio 21.4 RATIO (10-20); Bilirubin, Direct 0.27 mg/dL (0.00-0.30); Calcium,Total 9.1 mg/dL (8.5-10.1); Chloride 106 mmol/L (98-107); Cholesterol 175 mg/dL (200); Creatinine, Serum 0.94 mg/dL (0.55-1.02); EST Glomerular Filtration Rate 64 mL/min (>60); Est Glom Filt Rate - Afr Amer 77 mL/min (>60); Globulin 4.9 g/dL (2.2-4.2); Glucose 128 mg/dL (74-106); High Density Lipoprotein 66 mg/dL; Potassium 4.3 mmol/L (3.5-5.1); Protein, Total 8.4 g/dL (6.4-8.2); Sodium Level 138 mmol/L (136-145); Thyroid Stim Hormone (TSH) 1.01 uIU/mL (0.358-3.74); Triglycerides 69 mg/dL; Very Low Density Lipoprotein 14 mg/dL (5-40)
[2021-09-08 22:07] LABS: HCV Quant. RNA PCR HCV Not Detected IU/mL (.); QNTFERON TB Mitogen Value > 10.00 IU/mL (.); QNTFERON TB Nil Value 0.05 IU/mL (.); QNTFERON TB1+ Ag Value 0.05 IU/mL (.); QNTFERON TB2+ Ag Value 0.07 IU/mL (.)
[2021-09-09 09:19] LABS: QNTIFERON TB Positive Criteria Negative (Negative)
== END ==
PROVIDERS: PCP Family Medicine Geriatric Medicine; Visit Provider Family Medicine Geriatric Medicine
DX: I10 Essential (primary) hypertension (principal); E78.5 Hyperlipidemia, unspecified; E55.9 Vitamin D deficiency, unspecified; L40.0 Psoriasis vulgaris; L40.59 Other psoriatic arthropathy; L29.8 Other pruritus; Z79.899 Other long term (current) drug therapy
CPT/HCPCS: 36415; 80048; 80061; 80076; 82306; 84443; 85025; 86480; 87522

== ENCOUNTER 2021-09-13 20:06 | Emergency (ER) | payer MEDICARE, SELFPAY ==
[2021-09-13 20:08] VITALS: BP 122/65; PULSE 76; RESP 18; TEMP 36.1; O2SAT 98; BMI 33.6
--- NOTE | 2021-09-13 20:53 | ED.RN ---
patient came to the ed triage desk and waiting to leave. advised it would be best to be seen by doctors in order to get mk in her head from [place]. patient advised she has animals to take care of and no longer wants to wait. Patient alert and oriented and able to walk on own free will.
== END 2021-09-13 20:45 | disposition left against medical advice (07) ==
LOC: ED 21:31
PROVIDERS: PCP Family Medicine Geriatric Medicine
DX: R69 Illness, unspecified (principal); Z53.21 Procedure and treatment not carried out due to patient leaving prior to being seen by health care provider
CPT/HCPCS: 99282

== ENCOUNTER → 2022-09-11 | Outpatient (CLI) | payer MEDICARE, SELFPAY ==
[2022-09-11 16:31] LABS: Absolute Lymphocyte Count 1.79 X10^3/uL (0.83-4.51); Absolute Neutrophil Count 4.7 X10^3/uL (2.0-7.7); Basophil# 0.06 X10^3/uL; Basophil% 0.8 % (0-1); Eosinophil# 0.21 X10^3/uL; Eosinophils% 2.8 % (0-5); Hematocrit 43.2 % (37-47); Hemoglobin 14.1 g/dL (12.0-15.0); Lymphocyte # 1.79 X10^3/ul (0.83-4.51); Lymphocyte % 23.5 % (19-41); Mean Corp Hgb Conc 32.6 g/dL (32-36); Mean Corpuscular Hgb 30.8 pg (27.0-32.0); Mean Corpuscular Volume 94.3 fL (81-99); Mean Platelet Vol. 11.5 fl (6.2-12.0); Monocyte# 0.87 X10^3/uL; Monocyte% 11.4 % (0-10); NRBC Flagged by Analyzer 0 % (0-5); Neutrophil # 4.68 X10^3/uL (2.7-7.7); Neutrophil % 61.2 % (47-70); Platelet Count 129 K/mm3 (150-450); RBC Distribution Width CV 14.2 % (11.6-14.6); RBC Distribution Width SD 48.6 fl (35.1-43.9); Red Blood Count 4.58 M/mm3 (4.2-5.4); White Blood Count 7.6 K/mm3 (4.4-11.0)
[2022-09-11 16:48] LABS: Vitamin D,25 Hydroxy 32.6 ng/mL
[2022-09-11 16:55] LABS: ALB/GLOB Ratio 0.8 RATIO (0.9-2.4); AST(SGOT) 36 U/L (15-37); Alanine Aminotransfer ALT/SGPT 57 U/L (13-56); Albumin, Serum 3.6 g/dL (3.2-5.0); Alkaline Phosphatase 71 U/L (45-117); Anion Gap 7 (5-15); BUN 16 mg/dL (7-18); BUN/Creat Ratio 18.7 RATIO (10-20); Calcium,Total 8.8 mg/dL (8.5-10.1); Chloride 103 mmol/L (98-107); Cholesterol 177 mg/dL (200); Creatinine, Serum 0.86 mg/dL (0.55-1.02); EST Glomerular Filtration Rate 70 mL/min (>60); Est Glom Filt Rate - Afr Amer 85 mL/min (>60); Globulin 4.3 g/dL (2.2-4.2); Glucose 107 mg/dL (74-106); High Density Lipoprotein 56 mg/dL; Potassium 3.5 mmol/L (3.5-5.1); Protein, Total 7.9 g/dL (6.4-8.2); Sodium Level 139 mmol/L (136-145); Thyroid Stim Hormone (TSH) 1.02 uIU/mL (0.358-3.74); Triglycerides 99 mg/dL; Very Low Density Lipoprotein 20 mg/dL (5-40)
== END | disposition home or self-care (01) ==
LOC: LAB 16:14
PROVIDERS: PCP Family Medicine Geriatric Medicine; Referring Provider Family Medicine Geriatric Medicine; Visit Provider Family Medicine Geriatric Medicine
DX: I10 Essential (primary) hypertension (principal); E55.9 Vitamin D deficiency, unspecified; E78.5 Hyperlipidemia, unspecified
CPT/HCPCS: 36415; 80053; 80061; 82306; 84443; 85025

== ENCOUNTER 2022-11-28 07:37 | Emergency (ER) | payer MEDICARE, SELFPAY ==
[2022-11-28 07:38] VITALS: BP 131/61; PULSE 85; RESP 14; TEMP 36.4; O2SAT 100; BMI 32.1
--- NOTE | 2022-11-28 07:55 | RAD_ITS ---
STUDY: X-RAY - LEFT TIBIA AND FIBULA REASON FOR EXAM: Female, 66 years old. Pain following a fall. TECHNIQUE: 2 view(s) of the tibia and fibula were obtained. COMPARISON: None. FINDINGS: Normal visualized tibia. Normal visualized fibula. The soft tissue structures are unremarkable. RAD/Tibia & Fibula 2 Views IMPRESSION: Normal x-ray examination of the tibia and fibula. Electronically Signed: Juvenal Arango MD at 8:48 EST ,
--- NOTE | 2022-11-28 07:55 | RAD_ITS ---
STUDY: X-RAY - UNILATERAL RIBS ( LEFT ) WITH CHEST REASON FOR EXAM: Female, 66 years old. Left rib pain following a fall. TECHNIQUE - RIBS: 4 view(s) of the ribs. TECHNIQUE - CHEST: Single PA view of the chest. COMPARISON: Comparison is made with prior chest radiograph dated 07/26/2016. FINDINGS - RIBS: Normal visualized ribs without a demonstrated fracture. FINDINGS - CHEST: The lungs are clear and expanded. There is no demonstrated pleural abnormality. There is calcification of the mitral valve annulus. Normal mediastinum and yadiel. Normal visualized pulmonary arteries. There is atherosclerotic calcification of the aortic arch with tortuosity. There are degenerative changes of the visualized thoracic spine. Healed left rib fractures. There is no demonstrated abnormality of the visualized soft tissue structures of the upper abdomen. RAD/Ribs Uni Min 3V w/PA Chest IMPRESSION: RIBS: Healed left rib fractures. CHEST: Normal x-ray examination of the chest. Electronically Signed: Juvenal Arango MD at 8:51 EST ,
--- NOTE | 2022-11-28 07:56 | EDS_ITS ---
HPI History of Present Illness Chief Complaint: Lower Extremity Injury Detail of Chief Complaint: Fall with injury to left ankle Informant: patient Narrative Narrative: Patient presents the emergency department chief complaint of fall with a left ankle injury. Patient states that she was in the shower last night when she slipped and fell and injured her ankle. Patient fell a second time because she could not bear weight on her ankle afterwards. She denies striking her head or loss of consciousness. She denies neck pain. Patient also tells me she fell about a week ago when she was trying to move her mark potty because her bath with this being redone and injured her left ribs. She denies shortness of breath. She denies hemoptysis. Patient is a smoker. Patient also drinks alcohol daily. PFSH PFSH Medical History no medical history Home Medications escitalopram oxalate 20 mg tablet 20 mg PO DAILY 06/17/16 [History Last Taken Unknown] gabapentin 300 mg capsule 300 mg PO QHS 06/17/16 [History Last Taken Unknown] omeprazole 40 mg capsule,delayed release 40 mg PO DAILY 06/17/16 [History Last Taken Unknown] pravastatin 20 mg tablet 0 mg PO QHS 06/17/16 [History Last Taken Unknown] amlodipine 10 mg tablet 10 mg PO DAILY 07/28/19 [History Last Taken Unknown] cholecalciferol (vitamin D3) 125 mcg (5,000 unit) capsule 10,000 unit PO DAILY 07/28/19 [History Last Taken Unknown] levothyroxine 25 mcg tablet 25 mcg PO DAILY 07/28/19 [History Last Taken Unknown] zolpidem 10 mg tablet 10 mg PO QHS 07/28/19 [History Last Taken Unknown] ciprofloxacin HCl 500 mg tablet 500 mg PO BID #20 tabs 08/08/19 [Rx Last Taken Unknown] metronidazole 500 mg tablet 500 mg PO Q8H #30 tabs 08/08/19 [Rx Last Taken Unknown] ondansetron 4 mg disintegrating tablet 4 mg PO Q8H PRN PRN Nausea #10 tabs 08/08/19 [Rx Last Taken Unknown] Allergy/AdvReac Type Severity Reaction Status Date / Time No Known Allergies Allergy Verified 11/28/22 07:39 Social History Smoking Status: Former smoker ROS ROS ED Review of Systems ROS Unobtainable: other Constitutional Constitutional ED: Reports lethargy; Denies chills, fever(s), sweats or weight loss Eyes Eyes: Denies blurry vision, change in vision or diplopia ENT ENT ED: Denies rhinorrhea or sore throat Cardiovascular Cardiovascular: Denies chest pain, orthopnea or racing heartbeat Respiratory/Chest Respiratory/Chest: Denies cough, dyspnea, dyspnea on exertion, orthopnea or sputum Gastrointestinal Gastrointestinal: Denies abdominal pain, diarrhea, nausea or vomiting Genitourinary Genitourinary ED: Denies dysuria, hematuria or urinary frequency Musculoskeletal Musculoskeletal: Reports other Details: Left ankle pain and left rib pain ; Denies arthralgias, back pain, myalgias or neck pain Integumentary Denies abscess, Abrasions or rash Neurologic Neurologic: Denies headache(s) or weakness Psychiatric Psychiatric: Denies anxiety, depression or suicidal thoughts Endocrine Endocrinology: Denies polydipsia, polyphagia or polyuria Hematologic/Lymphatic Hematologic/Lymphatic: Denies easy bleeding, easy bruising or lymphadenopathy Allergic/Immunologic Allergic/Immunologic ED: Denies mouth swelling, tongue swelling or urticaria EXAM Physical Exam Const Vital Signs: 11/28/22 07:38 Temperature 97.5 F L Temperature Source Temporal Pulse Rate 85 Respiratory Rate 14 Blood Pressure 131/61 H Blood Pressure Mean 84 Pulse Ox 100 Oxygen Delivery Method Room Air Positive well nourished and well developed General Appearance ED: well developed and NAD HEENT Reports TM's clear and moist mucous membranes normocephalic and atraumatic; Negative for trauma or tenderness Tympanic Membrane ED: Yes TM's clear Eyes PERRL and EOMs intact bilaterally General Eye ED: Negative for pale conjunctiva or scleral icterus Neck no lymphadenopathy, supple and no JVD General: Negative for tenderness Chest Wall inspection of chest normal and palpation of chest normal Chest Narrative: Tenderness palpation over the left lower ribs in the midaxillary line. No crepitus or subcu emphysema noted. Patient has some old bruising to the left upper posterior ribs. Chest: Negative for tenderness Resp normal respiratory effort and clear to auscultation bilaterally Effort and Inspection: Negative for respiratory distress or pain with movement Auscultation: Negative for rhonchi, wheezes or diminished lung sounds Cardio regular rate, regular rhythm, S1 normal heart sound, S2 normal heart sound and no murmurs Peripheral Pulses: pulses 2+ throughout GI normal to inspection, nondistended, normoactive bowel sounds, soft to palpation, non-tender, non-distended and no masses Back/Spine no CVA tenderness and no thoracic nor lumbar tenderness Extremity Extremity Narrative: Left lower extremity-patient does have ecchymosis and bruising with soft tissue swelling over the lateral malleolus. Patient has tenderness to the proximal fibular head. Neurovascularly intact. No pain at the base of the fifth metatarsal. General Extremety ED: Negative for edema General Extremity: Negative for edema Neuro oriented x3, CN's II-XII intact bilaterally, no sensory deficits noted and gait normal Sensorium / Orientation: awake, alert, oriented to person, oriented to place and oriented to time Motor Exam: strength 5/5 throughout and strength abnormal Psych mental status grossly normal Skin no rashes or lesions noted and no wounds MDM MDM MDM Narrative Medical decision making narrative: Patient with mechanical fall at home. Falls may be related to alcohol. I discussed with patient the fact that we do have ability for detox at this hospital if she is concerned about going home or would like to detox could potentially admit to hospital. Patient does not want to be admitted for detox. Patient feels like she can care for herself at home and her sister who is with her states that the family is close by and they can help her. Patient does not want crutches because she does not think she could use them. We will give her a walking boot. Her x-rays of her left ankle showed no acute fractures. She did have some old healing fractures of her left ribs but no acute fractures noted there is no pneumothorax. Patient advised use ibuprofen or Tylenol for discomf ort. She will follow-up with her primary care physician within next 5 to 7 days. Lab Data Attestation: I reviewed the patient's lab results. Radiography Diagnostic Testing: Clinical Impression(s) from Imaging Studies Ribs w/Chest X-Ray 11/28/22 07:55 IMPRESSION: RIBS: Healed left rib fractures. CHEST: Normal x-ray examination of the chest. Electronically Signed: Juvenal Arango MD at 8:51 EST , Tibia/Fibula X-Ray 11/28/22 07:55 IMPRESSION: Normal x-ray examination of the tibia and fibula. Electronically Signed: Juvenal Arango MD at 8:48 EST , Ankle X-Ray 11/28/22 08:25 IMPRESSION: Soft tissue swelling. No fracture is seen. Electronically Signed: Juvenal Arango MD at 8:48 EST , Three-view x-rays of right ankle obtained interpreted by myself is question notable bony step-off to the posterior cortex of the distal fibula with concern for possible fracture. Radiologist felt the x-rays look normal and I did discuss my concerns with the radiologist and he states that patient had an old fracture in 2017 through the same area and he believes there is no acute fracture. Patient also had 2 view x-rays of the left tib-fib which were read by myself no acute fractures or dislocations. Radiology in agreement. X-rays of the left ribs and chest x-ray obtained interpreted by myself as no acute fractures without evidence of pneumothorax. Radiology was in agreement but they felt that she had healed left rib fractures. Discharge Plan Triage Chief Complaint: Lower Extremity Injury ED Provider: Tess Robert Dx/Rx/DC Orders Clinical Impression: Falls, Left ankle sprain, Chest wall contusion Instructions: ED Chest Wall Contusion, ED Mechanical Fall, ED Ankle Sprain (Adult) Prescriptions: No Action omeprazole 40 MG Capsule.Dr 40 mg PO DAILY gabapentin 300 MG capsule 300 mg PO QHS pravastatin 20 MG tablet 0 mg PO QHS Label Comments: DOESNT KNOW DOSE escitalopram oxalate 20 MG tablet 20 mg PO DAILY levothyroxine 25 MCG tablet 25 mcg PO DAILY amlodipine 10 MG tablet 10 mg PO DAILY zolpidem 10 MG tablet 10 mg PO QHS cholecalciferol (vitamin D3) 5,000 UNIT capsule 10,000 unit PO DAILY metronidazole 500 MG tablet 500 mg PO Q8H Qty: 30 0RF ciprofloxacin HCl 500 MG tablet 500 mg PO BID Qty: 20 0RF ondansetron 4 MG tablet 4 mg PO Q8H PRN PRN (Reason: Nausea) Qty: 10 0RF Primary Care Provider: Zachariah Arce Chi Referrals: Zachariah Arce Chi, MD [Primary Care Provider] - 5-7 Days Disposition Disposition: Home, Self Care
--- NOTE | 2022-11-28 08:25 | RAD_ITS ---
STUDY: X-RAY - LEFT ANKLE REASON FOR EXAM: Female, 66 years old. Ankle pain following a fall. TECHNIQUE: 4 view(s) of the ankle. COMPARISON: Comparison is made with prior study 07/30/2017. FINDINGS: Normal visualized distal tibia and fibula. Normal medial and lateral malleoli. Normal tibiotalar articulation and ankle mortise. Normal visualized talus and calcaneus. The visualized subtalar, talonavicular, calcaneocuboid and tarsal articulations are normal. Diffuse soft tissue swelling more prominent along the lateral aspect of the ankle. RAD/Ankle min 3 Views IMPRESSION: Soft tissue swelling. No fracture is seen. Electronically Signed: Juvenal Arango MD at 8:48 EST ,
== END 2022-11-28 10:42 | disposition home or self-care (01) ==
PROVIDERS: Emergency Provider Emergency Medicine; PCP Family Medicine Geriatric Medicine; Visit Provider Emergency Medicine
DX: S93.402A Sprain of unspecified ligament of left ankle, initial encounter (principal); S20.212A Contusion of left front wall of thorax, initial encounter; W01.0XXA Fall on same level from slipping, tripping and stumbling without subsequent striking against object, initial encounter; Y93.E1 Activity, personal bathing and showering; Y99.8 Other external cause status; R29.6 Repeated falls; Z87.891 Personal history of nicotine dependence
CPT/HCPCS: 71101; 73590; 73610; 99283

== ENCOUNTER → 2022-12-19 | Outpatient (CLI) | payer MEDICARE, SELFPAY ==
--- NOTE | 2022-12-19 15:26 | VDLE_ITS ---
Reason For Study: Edema RIGHT LEFT CFV is compressible, spontaneous, competent CFV is compressible, spontaneous, competent, and demonstrates pulsatile venous flow. and demonstrates pulsatile venous flow. Procedure FV is compressible, spontaneous, competent This is a venous duplex using B-mode, color and demonstrates pulsatile venous flow. flow and spectral Doppler. POP V is compressible, spontaneous, competent Exam performed in department. and demonstrates pulsatile venous flow. The exam was diagnostic. T/P Trunk is compressible. A preliminary report was called and/or faxed PTV is compressible. to Dr. Arce. LT PerV is compressible. VL/Venous Duplex US, Unilateral Interpretation Summary Deep veins of the left lower extremity are patent and compressible segmentally. There is no evidence of left lower extremity deep vein thrombosis. The left great saphenous vein celso ears patent and compressible segmentally. Ordering Physician: Zachariah Arce Chi Referring Physician: Zachariah Arce Chi Performed By: Micha Mckinnon RVT
== END | disposition home or self-care (01) ==
LOC: CVS 15:21
PROVIDERS: PCP Family Medicine Geriatric Medicine; Referring Provider Family Medicine Geriatric Medicine; Visit Provider Family Medicine Geriatric Medicine
DX: R60.9 Edema, unspecified (principal)
CPT/HCPCS: 93971

== ENCOUNTER → 2023-03-26 | Outpatient (CLI) | payer MEDICARE, SELFPAY ==
[2023-03-26 17:17] LABS: Absolute Lymphocyte Count 1.36 X10^3/uL (0.83-4.51); Absolute Neutrophil Count 5.2 X10^3/uL (2.0-7.7); Basophil# 0.05 X10^3/uL; Basophil% 0.7 % (0-1); Eosinophil# 0.16 X10^3/uL; Eosinophils% 2.1 % (0-5); Hematocrit 45.2 % (37-47); Hemoglobin 14.8 g/dL (12.0-15.0); Lymphocyte # 1.36 X10^3/ul (0.83-4.51); Lymphocyte % 18.1 % (19-41); Mean Corp Hgb Conc 32.7 g/dL (32-36); Mean Corpuscular Hgb 31.1 pg (27.0-32.0); Monocyte# 0.69 X10^3/uL; Monocyte% 9.2 % (0-10); NRBC Flagged by Analyzer 0 % (0-5); Neutrophil # 5.23 X10^3/uL (2.7-7.7); Neutrophil % 69.5 % (47-70); Platelet Count 116 K/mm3 (150-450); RBC Distribution Width CV 15.1 % (11.6-14.6); RBC Distribution Width SD 52.7 fl (35.1-43.9); Red Blood Count 4.76 M/mm3 (4.2-5.4); White Blood Count 7.5 K/mm3 (4.4-11.0)
[2023-03-26 18:03] LABS: Vitamin D,25 Hydroxy 36.2 ng/mL
[2023-03-26 18:13] LABS: AST(SGOT) 98 U/L (15-37); Alanine Aminotransfer ALT/SGPT 59 U/L (13-56); Albumin, Serum 3.9 g/dL (3.2-5.0); Alkaline Phosphatase 94 U/L (45-117); Anion Gap 7 (5-15); BUN 14 mg/dL (7-18); BUN/Creat Ratio 15.7 RATIO (10-20); Calcium,Total 9.3 mg/dL (8.5-10.1); Chloride 104 mmol/L (98-107); Cholesterol 187 mg/dL (200); Creatinine, Serum 0.89 mg/dL (0.55-1.02); EST Glomerular Filtration Rate 67 mL/min (>60); Est Glom Filt Rate - Afr Amer 81 mL/min (>60); Glucose 114 mg/dL (74-106); High Density Lipoprotein 48 mg/dL; Potassium 3.2 mmol/L (3.5-5.1); Protein, Total 7.9 g/dL (6.4-8.2); Sodium Level 138 mmol/L (136-145); Thyroid Stim Hormone (TSH) 1.02 uIU/mL (0.358-3.74); Triglycerides 128 mg/dL; Very Low Density Lipoprotein 26 mg/dL (5-40)
== END | disposition home or self-care (01) ==
PROVIDERS: PCP Family Medicine Geriatric Medicine; Referring Provider Family Medicine Geriatric Medicine; Visit Provider Family Medicine Geriatric Medicine
DX: I10 Essential (primary) hypertension (principal); E55.9 Vitamin D deficiency, unspecified
CPT/HCPCS: 36415; 80053; 80061; 82306; 84443; 85025

== ENCOUNTER → 2023-06-05 | Outpatient (CLI) | payer MEDICARE, SELFPAY ==
[2023-06-05 16:53] LABS: Absolute Lymphocyte Count 1.19 X10^3/uL (0.83-4.51); Absolute Neutrophil Count 5.5 X10^3/uL (2.0-7.7); Basophil# 0.04 X10^3/uL; Basophil% 0.5 % (0-1); Eosinophil# 0.11 X10^3/uL; Eosinophils% 1.5 % (0-5); Hematocrit 44.4 % (37-47); Hemoglobin 14.5 g/dL (12.0-15.0); Lymphocyte # 1.19 X10^3/ul (0.83-4.51); Lymphocyte % 15.8 % (19-41); Mean Corp Hgb Conc 32.7 g/dL (32-36); Mean Corpuscular Hgb 31.7 pg (27.0-32.0); Mean Corpuscular Volume 96.9 fL (81-99); Mean Platelet Vol. 12.5 fl (6.2-12.0); Monocyte# 0.63 X10^3/uL; Monocyte% 8.4 % (0-10); NRBC Flagged by Analyzer 0 % (0-5); Neutrophil # 5.52 X10^3/uL (2.7-7.7); Neutrophil % 73.5 % (47-70); Platelet Count 130 K/mm3 (150-450); RBC Distribution Width CV 13.9 % (11.6-14.6); RBC Distribution Width SD 49.6 fl (35.1-43.9); Red Blood Count 4.58 M/mm3 (4.2-5.4); White Blood Count 7.5 K/mm3 (4.4-11.0)
[2023-06-05 17:11] LABS: International Normalized Ratio 1.1; Prothrombin Time (Protime)PT. 13.9 SECONDS (11.7-14.9)
[2023-06-05 17:12] LABS: Partial Thromboplast Time 28.6 Seconds (24.1-36.2)
== END | disposition home or self-care (01) ==
LOC: POLAB3 16:09
PROVIDERS: PCP Family Medicine Geriatric Medicine; Visit Provider Family Medicine Geriatric Medicine
DX: D64.9 Anemia, unspecified (principal); R04.0 Epistaxis
CPT/HCPCS: 36415; 85025; 85610; 85730

== ENCOUNTER → 2023-06-21 | Outpatient (CLI) | payer MEDICARE, SELFPAY ==
--- NOTE | 2023-06-21 11:47 | BI_ITS ---
MAMMOGRAPHY - BILATERAL SCREENING REASON FOR EXAM: Female, 67 years old. Routine annual screening examination. PERTINENT HISTORY: Non-contributory. Remote left stereotactic breast biopsy. TECHNIQUE: Digital bilateral breast tatiana (3D mammographic acquisition) in the CC and MLO projections. 2-D mediolateral oblique (MLO) and craniocaudad (CC) views of both breasts were obtained. CAD: Full Field Digital Mammography with Computer Added Detection was performed. COMPARISON: Comparison is made with prior study dated February 06, 2019 and January 11, 2017. FINDINGS: Breast Composition: The breasts are heterogeneously dense, which may obscure small masses. New focus of amorphous calcification in the central portion of the left breast. The patient will be recalled for additional views of the left breast including medication spot views. Stable small left axillary lymph nodes. No other significant abnormalities are identified. BI/SCRN MAMM (CAD)W/TATIANA BILAT IMPRESSION: Focal amorphous calcifications seen in the central portion of the left breast as described. The patient will be recalled for additional views including magnification spot. Recall Side: Left Breast ASSESSMENT CATEGORY: BIRADS Category 0: Incomplete. Need additional imaging evaluation. A letter regarding these results will be sent to the patient by the facility within 30 days. Approximately 10% of breast cancers are not detected by mammography. A normal mammogram should not delay biopsy of a clinically suspicious abnormality. [id number] Electronically Signed: Juvenal Arango MD at 13:15 EDT ,
== END | disposition home or self-care (01) ==
LOC: OPBI 11:46
PROVIDERS: PCP Family Medicine Geriatric Medicine; Referring Provider Family Medicine Geriatric Medicine; Visit Provider Family Medicine Geriatric Medicine
DX: Z12.31 Encounter for screening mammogram for malignant neoplasm of breast (principal)
CPT/HCPCS: 77063; 77067

== ENCOUNTER → 2023-06-29 | Outpatient (CLI) | payer MEDICARE, SELFPAY ==
--- NOTE | 2023-06-29 14:26 | BI_ITS ---
MAMMOGRAPHY - UNILATERAL DIAGNOSTIC: LEFT BREAST REASON FOR EXAM: Female, 67 years old. Abnormal screening mammogram. PERTINENT HISTORY: TECHNIQUE: Magnification spot views of the left breast were obtained. CAD: Full Field Digital Mammography with Computer Added Detection was performed. COMPARISON: Comparison is made with prior study June 21, 2023. FINDINGS: Breast Composition: The breasts are heterogeneously dense, which may obscure small masses. Stable appearance of the amorphous microcalcifications. Biopsy recommended. No other significant abnormalities are identified. BI/DIAG MAMM W/CAD, UNILAT IMPRESSION: Stable appearance of the amorphous microcalcifications has described. Biopsy recommended. ASSESSMENT CATEGORY: BIRADS Category 4: Suspicious - Biopsy Should Be Considered. A letter regarding these results will be sent to the patient by the facility within 30 days. Approximately 10% of breast cancers are not detected by mammography. A normal mammogram should not delay biopsy of a clinically suspicious abnormality. Electronically Signed: Juvenal Arango MD at 15:12 EDT ,
== END | disposition home or self-care (01) ==
LOC: OPBI 14:24
PROVIDERS: PCP Family Medicine Geriatric Medicine; Referring Provider Family Medicine Geriatric Medicine; Visit Provider Family Medicine Geriatric Medicine
DX: R92.8 Other abnormal and inconclusive findings on diagnostic imaging of breast (principal)
CPT/HCPCS: 77065

== ENCOUNTER → 2023-07-09 | Outpatient (CLI) | payer MEDICARE, SELFPAY ==
[2023-07-09 16:12] LABS: Absolute Lymphocyte Count 1.83 X10^3/uL (0.83-4.51); Absolute Neutrophil Count 4.3 X10^3/uL (2.0-7.7); Basophil# 0.06 X10^3/uL; Basophil% 0.8 % (0-1); Eosinophil# 0.17 X10^3/uL; Eosinophils% 2.3 % (0-5); Hematocrit 41.9 % (37-47); Hemoglobin 13.9 g/dL (12.0-15.0); Lymphocyte # 1.83 X10^3/ul (0.83-4.51); Mean Corp Hgb Conc 33.2 g/dL (32-36); Mean Corpuscular Volume 96.5 fL (81-99); Mean Platelet Vol. 12.2 fl (6.2-12.0); Monocyte# 0.96 X10^3/uL; Monocyte% 13.1 % (0-10); NRBC Flagged by Analyzer 0 % (0-5); Neutrophil # 4.28 X10^3/uL (2.7-7.7); Neutrophil % 58.5 % (47-70); Platelet Count 116 K/mm3 (150-450); RBC Distribution Width CV 14.5 % (11.6-14.6); RBC Distribution Width SD 51.8 fl (35.1-43.9); Red Blood Count 4.34 M/mm3 (4.2-5.4); White Blood Count 7.3 K/mm3 (4.4-11.0)
[2023-07-09 16:38] LABS: AST(SGOT) 56 U/L (15-37); Alanine Aminotransfer ALT/SGPT 43 U/L (13-56); Albumin, Serum 3.5 g/dL (3.2-5.0); Alkaline Phosphatase 91 U/L (45-117); Bilirubin, Direct 0.41 mg/dL (0.00-0.30); Globulin 4.7 g/dL (2.2-4.2); Protein, Total 8.2 g/dL (6.4-8.2)
[2023-07-11 12:09] LABS: QNTFERON TB Mitogen Value > 10.00 IU/mL (.); QNTFERON TB Nil Value 0.16 IU/mL (.); QNTFERON TB1+ Ag Value 0.13 IU/mL (.); QNTFERON TB2+ Ag Value 0.11 IU/mL (.); QNTIFERON TB Positive Criteria Negative (Negative)
== END | disposition home or self-care (01) ==
LOC: LAB 15:53
PROVIDERS: PCP Family Medicine Geriatric Medicine; Visit Provider Dermatology
DX: L40.0 Psoriasis vulgaris (principal); L40.59 Other psoriatic arthropathy; Z79.899 Other long term (current) drug therapy
CPT/HCPCS: 36415; 80076; 85025; 86480

== ENCOUNTER → 2023-07-25 | Outpatient (CLI) | payer MEDICARE, SELFPAY ==
--- NOTE | 2023-07-25 | BRBX_PTH ---
PATIENT: JACOBY MARION LOC: [facility] U#:[id number] AGE/SX: 67/F ROOM: RE07/25/[address]: Dr. Tiago Wilkerson MD : 1955 BED: DIS: 07/25/2023 SPEC #: [id number] RECD: 07/25/23 12:14 STATUS: PAUL THANIA #: [id number] DARRON: 07/25/23 00:[address]: Tiago Wilkerson DEPT: SURGICAL PATHOLOGY RECD BY: Jayson Berry ENTERED: 07/25/23 12:40 SP TYPE: BREAST BX OTHR DR: Dr. Zachariah Arce MD Tissues: Left breast, NOS Procedures: Surgery Specimen Level IV HEADER OPERATION: Left breast calcifications, stereotactic biopsy PRE-OP DIAGNOSIS: Left breast calcifications TISSUE SUBMITTED: Left breast core tissue ISCHEMIC TIME: 1 minute FIXATION TIME: 8 hours MICROSCOPIC DIAGNOSIS Left breast, stereotactic core biopsy: Microfibroadenoma with clustered microcalcifications. Focal intraductal hyperplasia without atypia with associated banal microcalcifications. Fibrocystic change with associated banal microcalcifications. AM:milad 07/26/2023 MICROSCOPIC DESCRIPTION Slides are reviewed. GROSS DESCRIPTION Received in fixative is one container labeled with the patient's name and designated left breast. The specimen consists of multiple elongated fragments of davidson-yellow fibroadipose tissue that in aggregate measure 6.0 x 3.0 x 0.3 cm. The entire specimen is submitted in three cassettes. / VERONICA:milad 07/25/2023 TC:5 CPT: 59072
--- NOTE | 2023-07-25 12:25 | PCM.OP.PRO ---
Procedure Report Date of Procedure: 07/25/23 Procedure name: Stereotactic biopsy of left breast Indication: Amorphous calcifications in the left breast After obtaining written and verbal consent and reviewing the details of the procedure, patient was positioned on the mammography table. [employer] image was performed to identify the location of microcalcifications. Stereo images were obtained at plus and -15 degrees. With these images, the biopsy site was targeted just below the area to be sampled. Then the biopsy site was anesthetized with local anesthetic both at the skin and deeply along the ventral biopsy tract. A skin dimple was made with an 11 blade to accommodate the 8 Macedonian mammotome core needle. The needle was advanced into this opening and the needle was fired. Post-firing images confirmed that we were in the vicinity of the calcifications. We then obtained 6 biopsies along the 180 degrees superior to the needle insertion site. The cores were then x-rayed and we confirmed the presence of microcalcifications. Satisfied with this result, I placed a clip at the biopsy site and confirmed it presents with another x-ray. This concluded the biopsy and the patient was allowed to sit upright while manual pressure was applied externally. She tolerated the procedure well without any apparent complication. She was given post-- procedure care instructions and we will follow up once pathology has resulted. EBL: 5 mL Procedures Integumentary [id number]: [id number] Bx breast 1st lesion [facility]
== END | disposition home or self-care (01) ==
PROVIDERS: PCP Family Medicine Geriatric Medicine; Visit Provider Surgery
DX: D24.2 Benign neoplasm of left breast (principal); R92.8 Other abnormal and inconclusive findings on diagnostic imaging of breast; N62 Hypertrophy of breast; R92.0 Mammographic microcalcification found on diagnostic imaging of breast
CPT/HCPCS: 19081; 88305; J7050; A4648

== ENCOUNTER → 2023-09-20 | Outpatient (CLI) | payer MEDICARE, SELFPAY ==
[2023-09-20 17:28] LABS: Absolute Lymphocyte Count 1.47 X10^3/uL (0.83-4.51); Absolute Neutrophil Count 4.1 X10^3/uL (2.0-7.7); Basophil# 0.06 X10^3/uL; Basophil% 0.9 % (0-1); Eosinophil# 0.16 X10^3/uL; Eosinophils% 2.4 % (0-5); Hemoglobin 13.7 g/dL (12.0-15.0); Lymphocyte # 1.47 X10^3/ul (0.83-4.51); Lymphocyte % 21.6 % (19-41); Mean Corp Hgb Conc 31.9 g/dL (32-36); Mean Corpuscular Hgb 30.7 pg (27.0-32.0); Mean Corpuscular Volume 96.4 fL (81-99); Mean Platelet Vol. 12.6 fl (6.2-12.0); Monocyte# 0.94 X10^3/uL; Monocyte% 13.8 % (0-10); NRBC Flagged by Analyzer 0 % (0-5); Neutrophil # 4.14 X10^3/uL (2.7-7.7); Platelet Count 129 K/mm3 (150-450); RBC Distribution Width CV 14.8 % (11.6-14.6); RBC Distribution Width SD 52.8 fl (35.1-43.9); Red Blood Count 4.46 M/mm3 (4.2-5.4); White Blood Count 6.8 K/mm3 (4.4-11.0)
[2023-09-20 17:52] LABS: Vitamin D,25 Hydroxy 22.2 ng/mL
[2023-09-20 18:05] LABS: ALB/GLOB Ratio 0.7 RATIO (0.9-2.4); AST(SGOT) 111 U/L (15-37); Alanine Aminotransfer ALT/SGPT 61 U/L (13-56); Albumin, Serum 3.3 g/dL (3.2-5.0); Alkaline Phosphatase 92 U/L (45-117); Anion Gap 9 (5-15); BUN 7 mg/dL (7-18); BUN/Creat Ratio 9.6 RATIO (10-20); Calcium,Total 8.4 mg/dL (8.5-10.1); Chloride 102 mmol/L (98-107); Cholesterol 191 mg/dL (200); Creatinine, Serum 0.73 mg/dL (0.55-1.02); EST Glomerular Filtration Rate 85 mL/min (>60); Est Glom Filt Rate - Afr Amer 102 mL/min (>60); Globulin 4.7 g/dL (2.2-4.2); Glucose 118 mg/dL (74-106); High Density Lipoprotein 43 mg/dL; Potassium 2.9 mmol/L (3.5-5.1); Sodium Level 140 mmol/L (136-145); Thyroid Stim Hormone (TSH) 0.73 uIU/mL (0.358-3.74); Triglycerides 133 mg/dL; Very Low Density Lipoprotein 27 mg/dL (5-40)
== END | disposition home or self-care (01) ==
LOC: POLAB3 15:56
PROVIDERS: PCP Family Medicine Geriatric Medicine; Visit Provider Family Medicine Geriatric Medicine
DX: I10 Essential (primary) hypertension (principal); E55.9 Vitamin D deficiency, unspecified
CPT/HCPCS: 36415; 80053; 80061; 82306; 84443; 85025

== ENCOUNTER 2023-11-21 19:08 | Emergency (ER) | payer MEDICARE, SELFPAY ==
[2023-11-21 19:09] VITALS: BP 137/78; PULSE 44; RESP 24; TEMP 36.9; O2SAT 97
[2023-11-21 19:12] VITALS: BP 137/78; PULSE 44; RESP 24; TEMP 36.9; O2SAT 97
--- NOTE | 2023-11-21 20:44 | EX.ED.DYSGE1 ---
HPI History of Present Illness Chief Complaint: General Illness Informant: patient and family Narrative Narrative: Here with 2 sisters for evaluation states woke up 2 days ago lightheaded symptoms no dizzy or spinning. She was holding onto things. No syncopal episodes. Also states constipated no bowel movements for 3 days little flatus. No abdominal surgeries. Really minimal urination since Sunday. Denies any history of kidney injury. Intermittent dry heaves when she drinks too much. No current nausea. No abdominal pain. No abdominal distention. Denies fevers. Patient on medications for high blood pressure hyperlipidemia thyroid GERD and depression medications. Per sisters, she has been in bed last couple days due to symptoms. Prior similar symptoms: No PFSH PFSH Medical History Depression Fatigue GERD (gastroesophageal reflux disease) HLD (hyperlipidemia) HTN (hypertension) Hypothyroidism Left leg pain Leg cramps Other specified disorders of bone density and structure, unspecified site Positive colorectal cancer screening using Cologuard test Rheumatoid arthritis Unspecified viral hepatitis C without hepatic coma Vitamin D deficiency Home Medications omeprazole 40 mg capsule,delayed release 40 mg PO DAILY 06/17/16 [History Last Taken Unknown] cholecalciferol (vitamin D3) 125 mcg (5,000 unit) capsule 10,000 unit PO DAILY 07/28/19 [History Last Taken Unknown] levothyroxine 25 mcg tablet 25 mcg PO DAILY 07/28/19 [History Last Taken Unknown] amlodipine 5 mg tablet 5 mg PO DAILY 07/17/23 [History Last Taken Unknown] baclofen 10 mg tablet 10 mg PO QHS 07/17/23 [History Last Taken Unknown] potassium chloride 20 mEq tablet,extended release(part/cryst) 20 meq PO BID 07/17/23 [History Last Taken Unknown] pravastatin 40 mg tablet 40 mg PO QHS 07/17/23 [History Last Taken Unknown] venlafaxine 75 mg capsule,extended release 24 hr 75 mg PO DAILY 07/17/23 [History Last Taken Unknown] risankizumab-rzaa 150 mg/mL subcutaneous pen injector (Skyrizi) 150 mg subcut Q90D 11/21/23 [History Last Taken Unknown] Allergy/AdvReac Type Severity Reaction Status Date / Time No Known Allergies Allergy Verified 11/21/23 19:09 Family History Father Silent myocardial infarction CAD (coronary artery disease) Sister Cancer thyroid Thyroid disorder Mother Hypertension Grandfather Diabetes Grandmother Diabetes Surgical History H/O arthroscopic knee surgery H/O lumpectomy H/O total hysterectomy History of ankle surgery S/P excision of lipoma S/P eye surgery S/P left breast biopsy S/P wrist surgery Social History (Updated 07/17/23 @ 14:44 by Aletha Colunga) Smoking Status: Current every day smoker tobacco type: cigarettes and e-cigarettes alcohol intake: current ROS ROS ED Constitutional Constitutional ED: Denies chills, fever(s) or sweats Eyes Eyes: Denies change in vision ENT ENT ED: Denies dysphagia or sore throat Cardiovascular Cardiovascular: Reports other Details: lightheaded symptoms ; Denies chest pain, leg edema, palpitations or racing heartbeat Respiratory/Chest Respiratory/Chest: Reports dyspnea; Denies cough or dyspnea on exertion Gastrointestinal Gastrointestinal: Reports constipation; Denies abdominal pain, diarrhea, nausea or vomiting Genitourinary Genitourinary ED: Reports other Details: Decreased urine output ; Denies dysuria, hematuria or urinary frequency Musculoskeletal Musculoskeletal: Denies back pain, extremity pain or neck pain Integumentary Denies rash or wounds Neurologic Neurologic: Reports other; Denies headache(s), paresthesias or weakness EXAM Physical Exam Const Vital Signs: 11/21/23 19:09 11/21/23 19:12 11/21/23 20:42 Temperature 98.4 F 98.4 F Temperature Source Temporal Temporal Pulse Rate 44 L 44 L Respiratory Rate 24 H 24 H Respiratory Effort Normal Respiratory Pattern Normal Blood Pressure 137/78 H 137/78 H Blood Pressure Mean 97 97 Pulse Ox 97 97 11/21/23 21:15 11/21/23 21:30 11/21/23 22:00 Temperature Temperature Source Pulse Rate 36 L 38 L 52 L Respiratory Rate 20 H 15 19 H Respiratory Effort Respiratory Pattern Blood Pressure 155/57 H 153/62 H 137/49 H Blood Pressure Mean 79 87 74 Pulse Ox 96 96 98 11/21/23 23:00 Temperature Temperature Source Pulse Rate 48 L Respiratory Rate 19 H Respiratory Effort Respiratory Pattern Blood Pressure 155/57 H Blood Pressure Mean 85 Pulse Ox 93 Positive well nourished and well developed General Appearance ED: well developed and NAD HEENT Reports moist mucous membranes normocephalic and atraumatic Eyes PERRL, EOMs intact bilaterally and conjunctivae normal General Eye ED: Yes normal appearance of both eyes Neck no lymphadenopathy and supple General: Negative for tenderness Chest Wall Chest: Negative for tenderness Resp normal respiratory effort and normal air movement Effort and Inspection: symmetric chest movement; Negative for respiratory distress Cardio regular rhythm and no murmurs Rate: bradycardia Peripheral Pulses: pulses 2+ throughout GI normal to inspection, nondistended, normoactive bowel sounds and non-tender Palpation: Negative for guarding or rebound tenderness present Back/Spine no CVA tenderness and no thoracic nor lumbar tenderness Extremity normal to inspection General Extremety ED: Negative for edema or tenderness General Extremity: Negative for edema Neuro oriented x3 and no sensory deficits noted Sensorium / Orientation: awake and alert Skin no rashes or lesions noted and no wounds MDM MDM MDM Narrative Medical decision making narrative: Interventions / MDM: Differential diagnosis: Diagnosis considered but do not suspect: N/A My EKG interpretation: Bradycardic 48, no ST changes T wave version leads III however concerns for complete AV block. EKG 2016 sinus rhythm rate was in the 80s. Imaging independently reviewed and interpreted by myself: N/A External documents reviewed: N/A Test considered but not ordered:N/A ED course: Patient bradycardic with lightheaded symptoms and dyspnea with exertion. EKG concerns for complete heart block bradycardia. Compared old EKG this is new. He is only on amlodipine. No beta-stephanie or other calcium channel blockers. This was sent through backline to on-call route process administrator who agrees. On the monitor on reevaluation she is in the 30s with clear heart block seen. Blood pressure stable. AP pads were placed. With her decreased urine output bladder scan was minimal. Labs were checked to look for renal function. No current EP doctor for pacemaker available at facility. Therefore will need transfer. 2128: Creatinine 1.35 up from 0.72 months ago. TSH slightly elevated 3.78. Will check free T4 levels. She is on levothyroxine. Potassium magnesium normal. Hemoglobin 11.7. Patient was initially ordered for normal saline due to her dry mucosal membranes. 2134: Spoke with [facility] transfer line and route process administrator at [facility] Dr. Hillman, to help triage at their facility. Her blood pressure stable. He agrees he is safe for telemetry floor. Transfer line will call back with hospitalist service. 2154: I spoke with hospitalist Dr. Weiss, discussed patient's history and findings. Will add troponin and coags. Patient accepted to the CCU. Re-evaluation: stable Disposition discussed with patient/family/significant other: Patient and family Case discussed with consulting clinician: Cardiology Kay, cardiology [facility], hospitalist [facility] This note was generated with [employer] dictation software. It may contain incorrect words, spelling, and punctuation that were not noted in checking the note before signing. Lab Data Attestation: I reviewed the patient's lab results. Labs: Laboratory Results - last 24 hr 11/21/23 11/21/23 20:54 22:30 WBC 6.6 RBC 3.77 L Hgb 11.7 L Hct 37.6 MCV 99.7 H MCH 31.0 MCHC 31.1 L RDW Std Deviation 61.1 H RDW Coeff of Zacarias 16.9 H Plt Count 143 L MPV 12.8 H Immature Gran % (Auto) 0.500 Neut % (Auto) 72.5 H Lymph % (Auto) 15.9 L [place] % (Auto) 9.1 Eos % (Auto) 1.4 Baso % (Auto) 0.6 Absolute Neuts (auto) 4.8 Absolute Lymphs (auto) 1.04 Nucleated RBC % 0 PT 14.9 INR 1.2 APTT 26.7 Sodium 137 Potassium 4.0 Chloride 105 Carbon Dioxide 21.0 Anion Gap 11 BUN 28 H Creatinine 1.35 H Estim Creat Clear Calc 37.95 Est GFR (MDRD) Af Amer 50 L Est GFR (MDRD) Non-Af 41 L BUN/Creatinine Ratio 20.7 H Glucose 119 H Calcium 9.4 Magnesium 2.0 Troponin I High Sens 44 TSH 3.78 H Free T4 1.50 H Radiography Diagnostic Testing: Clinical Impression(s) from Imaging Studies Chest X-Ray 11/21/23 21:05 IMPRESSION: No radiographic evidence of acute cardiopulmonary disease. Electronically Signed: Ayo Aj DO at 21:56 EST , Critical Care Time Critical Care Time: Yes Critical care time (excluding procedures): 30-74 minutes, Discussing w/Patient &/or Family/Communications Station Manager, Discussing w/Consultants, Arranging Admission or Transfer, Performing Direct Patient Care at Bedside and - (40 minutes) Discharge Plan Triage Chief Complaint: General Illness ED Provider: Greyson Noonan Dx/Rx/DC Orders Clinical Impression: Symptomatic bradycardia, Complete heart block, Acute renal insufficiency, Dehydration Prescriptions: No Action amlodipine 5 mg tablet 5 mg PO DAILY pravastatin 40 mg tablet 40 mg PO QHS baclofen 10 mg tablet 10 mg PO QHS potassium chloride 20 mEq tablet,ER particles/crystals 20 meq PO BID venlafaxine 75 mg capsule,extended release 24hr 75 mg PO DAILY omeprazole 40 MG capsule,delayed release(DR/EC) 40 mg PO DAILY levothyroxine 25 MCG tablet 25 mcg PO DAILY cholecalciferol (vitamin D3) 5,000 UNIT capsule 10,000 unit PO DAILY Skyrizi 150 mg/mL pen injector 150 mg SUBCUT Q90D Primary Care Provider: Zachariah Arce Chi Referrals: Zachariah Arce Chi, MD [Primary Care Provider] - Disposition Disposition: DC/Tx to Another Type of HCF
[2023-11-21 21:02] LABS: Absolute Lymphocyte Count 1.04 X10^3/uL (0.83-4.51); Absolute Neutrophil Count 4.8 X10^3/uL (2.0-7.7); Basophil# 0.04 X10^3/uL; Basophil% 0.6 % (0-1); Eosinophil# 0.09 X10^3/uL; Eosinophils% 1.4 % (0-5); Hematocrit 37.6 % (37-47); Hemoglobin 11.7 g/dL (12.0-15.0); Lymphocyte # 1.04 X10^3/ul (0.83-4.51); Lymphocyte % 15.9 % (19-41); Mean Corp Hgb Conc 31.1 g/dL (32-36); Mean Corpuscular Volume 99.7 fL (81-99); Mean Platelet Vol. 12.8 fl (6.2-12.0); Monocyte% 9.1 % (0-10); NRBC Flagged by Analyzer 0 % (0-5); Neutrophil # 4.76 X10^3/uL (2.7-7.7); Neutrophil % 72.5 % (47-70); Platelet Count 143 K/mm3 (150-450); RBC Distribution Width CV 16.9 % (11.6-14.6); RBC Distribution Width SD 61.1 fl (35.1-43.9); Red Blood Count 3.77 M/mm3 (4.2-5.4); White Blood Count 6.6 K/mm3 (4.4-11.0)
[2023-11-21] MEDS: 0.9% Normal Saline (1000mL) 1,000 ML 1000 ML IV (21:04)
--- NOTE | 2023-11-21 21:05 | RAD_ITS ---
INDICATION: sob EXAMINATION/TECHNIQUE: X-RAY - XR Chest 1 View COMPARISON: November 28, 2022 FINDINGS: LINES/DEVICES: None. LUNGS: No consolidation, edema or effusion. No pneumothorax. MEDIASTINUM AND CARDIOVASCULAR STRUCTURES: Cardiac silhouette not enlarged. Calcified aortic arch Central airways and mediastinal contour are unremarkable. BONES AND SOFT TISSUES: Unremarkable. RAD/Chest 1 View (Portable) IMPRESSION: No radiographic evidence of acute cardiopulmonary disease. Electronically Signed: Ayo Aj DO at 21:56 EST ,
[2023-11-21 21:15] VITALS: BP 155/57; PULSE 36; RESP 20; O2SAT 96
[2023-11-21 21:17] VITALS: BMI 32.9
[2023-11-21 21:26] LABS: Anion Gap 11 (5-15); BUN 28 mg/dL (7-18); BUN/Creat Ratio 20.7 RATIO (10-20); Calcium,Total 9.4 mg/dL (8.5-10.1); Chloride 105 mmol/L (98-107); Creatinine, Serum 1.35 mg/dL (0.55-1.02); EST Glomerular Filtration Rate 41 mL/min (>60); Est Glom Filt Rate - Afr Amer 50 mL/min (>60); Estimated Creatinine Clearance 37.95 ml/min; Glucose 119 mg/dL (74-106); Sodium Level 137 mmol/L (136-145); Thyroid Stim Hormone (TSH) 3.78 uIU/mL (0.358-3.74)
[2023-11-21 21:30] VITALS: BP 153/62; PULSE 38; RESP 15; O2SAT 96
[2023-11-21 22:00] VITALS: BP 137/49; PULSE 52; RESP 19; O2SAT 98
[2023-11-21 22:20] LABS: Troponin-I HS 44 pg/mL (3.0-54.0)
[2023-11-21 22:47] LABS: International Normalized Ratio 1.2; Partial Thromboplast Time 26.7 Seconds (24.1-36.2); Prothrombin Time (Protime)PT. 14.9 SECONDS (11.7-14.9)
[2023-11-21 23:00] VITALS: BP 155/57; PULSE 48; RESP 19; O2SAT 93
[2023-11-22] VITALS: BP 117/73; PULSE 54; RESP 23
[2023-11-22 00:20] VITALS: PULSE 49; RESP 17; O2SAT 94
[2023-11-22 00:30] VITALS: PULSE 47; RESP 17; O2SAT 94
[2023-11-22] MEDS: 0.9% Normal Saline (1000mL) 1,000 ML 100 ML IV (00:36)
[2023-11-22 00:40] VITALS: PULSE 47; RESP 18; O2SAT 96
[2023-11-22 00:50] VITALS: PULSE 46; RESP 19; O2SAT 95
[2023-11-22 01:01] VITALS: BP 152/51; PULSE 47; RESP 20; O2SAT 96
== END 2023-11-22 01:35 | disposition short-term general hospital (02) ==
PROVIDERS: Emergency Provider Emergency Medicine; PCP Family Medicine Geriatric Medicine; Visit Provider Emergency Medicine
DX: I44.2 Atrioventricular block, complete (principal); E86.0 Dehydration; N28.9 Disorder of kidney and ureter, unspecified; I10 Essential (primary) hypertension; F17.210 Nicotine dependence, cigarettes, uncomplicated; F17.290 Nicotine dependence, other tobacco product, uncomplicated; Z79.899 Other long term (current) drug therapy
CPT/HCPCS: 71045; 80048; 83735; 84439; 84443; 84484; 85025; 85610; 85730; 87631; 93005; 96360; 96361; 99285; J7030; A4216

== ENCOUNTER → 2023-12-27 | Outpatient (CLI) | payer MEDICARE, SELFPAY ==
--- NOTE | 2023-12-27 15:53 | RAD_ITS ---
INDICATION: NAUSEA EXAMINATION/TECHNIQUE: X-RAY - XR Abdomen 1 View COMPARISON: No relevant prior comparison study available FINDINGS: BOWEL GAS PATTERN: Non-obstructive. No bowel or stomach distention. FREE AIR: Not assessed on a single supine view. ORGANOMEGALY: Not seen. CALCIFICATIONS: No abnormal calcifications observed. LOWER CHEST: No acute pathology. BONES AND SOFT TISSUES: No acute pathology. RAD/Abdomen Single View IMPRESSION: Non-obstructive bowel gas pattern. Electronically Signed: Cyril Salinas MD at 13:21 EST ,
--- NOTE | 2023-12-27 15:55 | RAD_ITS ---
INDICATION: Shortness of breath EXAMINATION/TECHNIQUE: X-RAY - XR Chest 2 Views COMPARISON: Prior study dated: 11/21/2023 FINDINGS: LINES/DEVICES: Left-sided dual-chamber pacemaker in place new since previous exam. LUNGS: No consolidation, edema or effusion. No pneumothorax. MEDIASTINUM AND CARDIOVASCULAR STRUCTURES: Cardiac silhouette not enlarged. Central airways and mediastinal contour are unremarkable. BONES AND SOFT TISSUES: Degenerative changes of the thoracic spine. RAD/Chest PA and Lateral IMPRESSION: No radiographic evidence of acute cardiopulmonary disease. Electronically Signed: Cyril Salinas MD at 13:18 EST ,
[2023-12-27 17:10] LABS: Color, Urine Yellow (Yellow); Glucose, Dipstick Normal (Normal); Ketone-Dipstick Negative (Negative); Leukocyte Esterase-Dipstick Negative /ul (Negative); Nitrite-Dipstick Negative (Negative); Occult Blood-Urine Negative /ul (Negative); Protein-Dipstick 15 mg/dl (Negative); Specific Gravity, Urine 1.005 (1.002-1.030); Urine Bilirubin Dipstick Negative (Negative); Urine Clarity Clear (Clear); Urine Urobilinogen 8 mg/dl (Normal)
[2023-12-27 17:17] LABS: Absolute Lymphocyte Count 1.03 X10^3/uL (0.83-4.51); Absolute Neutrophil Count 4.6 X10^3/uL (2.0-7.7); Basophil# 0.03 X10^3/uL; Basophil% 0.5 % (0-1); Eosinophil# 0.18 X10^3/uL; Eosinophils% 2.8 % (0-5); Hematocrit 42.9 % (37-47); Hemoglobin 13.9 g/dL (12.0-15.0); Lymphocyte # 1.03 X10^3/ul (0.83-4.51); Lymphocyte % 15.7 % (19-41); Mean Corp Hgb Conc 32.4 g/dL (32-36); Mean Corpuscular Hgb 32.9 pg (27.0-32.0); Mean Corpuscular Volume 101.4 fL (81-99); Mean Platelet Vol. 12.1 fl (6.2-12.0); Monocyte# 0.68 X10^3/uL; Monocyte% 10.4 % (0-10); NRBC Flagged by Analyzer 0 % (0-5); Neutrophil % 70.3 % (47-70); POSITIVE COUNT YES; Platelet Count 98 K/mm3 (150-450); RBC Distribution Width SD 59.8 fl (35.1-43.9); Red Blood Count 4.23 M/mm3 (4.2-5.4); White Blood Count 6.5 K/mm3 (4.4-11.0)
[2023-12-27 17:23] LABS: Vitamin D,25 Hydroxy 16.9 ng/mL
[2023-12-27 17:27] LABS: Differential Indicated SCAN CRITERIA MET
[2023-12-27 17:36] LABS: ALB/GLOB Ratio 0.8 RATIO (0.9-2.4); AST(SGOT) 58 U/L (15-37); Alanine Aminotransfer ALT/SGPT 38 U/L (13-56); Albumin, Serum 3.5 g/dL (3.2-5.0); Alkaline Phosphatase 92 U/L (45-117); Anion Gap 8 (5-15); BUN 14 mg/dL (7-18); BUN/Creat Ratio 17.2 RATIO (10-20); Calcium,Total 9.2 mg/dL (8.5-10.1); Chloride 103 mmol/L (98-107); Creatinine, Serum 0.81 mg/dL (0.55-1.02); EST Glomerular Filtration Rate 74 mL/min (>60); Est Glom Filt Rate - Afr Amer 90 mL/min (>60); Globulin 4.4 g/dL (2.2-4.2); Glucose 119 mg/dL (74-106); Potassium 3.9 mmol/L (3.5-5.1); Protein, Total 7.9 g/dL (6.4-8.2); Sodium Level 140 mmol/L (136-145); Thyroid Stim Hormone (TSH) 1.47 uIU/mL (0.358-3.74)
[2023-12-27 17:45] LABS: BNP,B-Type NATRIURETIC PEPTIDE 949.2 pg/mL (0-100)
[2023-12-27 19:26] LABS: Differential Comment SCANNED; Platelet Estimate MOD DEC (ADEQ)
== END | disposition home or self-care (01) ==
PROVIDERS: PCP Family Medicine Geriatric Medicine; Visit Provider Family Medicine Geriatric Medicine
DX: I10 Essential (primary) hypertension (principal); E55.9 Vitamin D deficiency, unspecified; N39.0 Urinary tract infection, site not specified; R06.02 Shortness of breath; R11.0 Nausea
CPT/HCPCS: 36415; 71046; 74018; 80053; 81002; 82306; 83880; 84443; 85025; 87086; 87088

== ENCOUNTER → 2024-01-07 | Outpatient (CLI) | payer MEDICARE, SELFPAY ==
[2024-01-07 16:54] LABS: Absolute Neutrophil Count 3.5 X10^3/uL (2.0-7.7); Basophil# 0.04 X10^3/uL; Basophil% 0.6 % (0-1); Eosinophil# 0.21 X10^3/uL; Eosinophils% 3.4 % (0-5); Hematocrit 48.8 % (37-47); Hemoglobin 15.8 g/dL (12.0-15.0); Lymphocyte % 24.4 % (19-41); Mean Corp Hgb Conc 32.4 g/dL (32-36); Mean Corpuscular Hgb 33.1 pg (27.0-32.0); Mean Corpuscular Volume 102.3 fL (81-99); Mean Platelet Vol. 12.4 fl (6.2-12.0); Monocyte# 0.86 X10^3/uL; NRBC Flagged by Analyzer 0 % (0-5); Neutrophil # 3.52 X10^3/uL (2.7-7.7); Neutrophil % 57.1 % (47-70); POSITIVE COUNT YES; Platelet Count 95 K/mm3 (150-450); RBC Distribution Width CV 14.9 % (11.6-14.6); RBC Distribution Width SD 57.6 fl (35.1-43.9); Red Blood Count 4.77 M/mm3 (4.2-5.4); White Blood Count 6.2 K/mm3 (4.4-11.0)
[2024-01-07 16:56] LABS: Differential Indicated SCAN CRITERIA MET
[2024-01-07 16:58] LABS: Anisocytosis 1+; Macrocytosis 1+; Platelet Estimate MOD DEC (ADEQ); Red Cell Morphology N CHROM NORMAL (NORM C&C)
[2024-01-07 17:05] LABS: Anion Gap 7 (5-15); BUN 28 mg/dL (7-18); BUN/Creat Ratio 25.5 RATIO (10-20); Calcium,Total 10.1 mg/dL (8.5-10.1); Chloride 102 mmol/L (98-107); EST Glomerular Filtration Rate 52 mL/min (>60); Est Glom Filt Rate - Afr Amer 63 mL/min (>60); Glucose 138 mg/dL (74-106); Potassium 3.4 mmol/L (3.5-5.1); Sodium Level 141 mmol/L (136-145)
[2024-01-07 17:30] LABS: BNP,B-Type NATRIURETIC PEPTIDE 570.2 pg/mL (0-100)
== END | disposition home or self-care (01) ==
LOC: POLAB3 15:43
PROVIDERS: PCP Family Medicine Geriatric Medicine; Visit Provider Family Medicine Geriatric Medicine
DX: E03.9 Hypothyroidism, unspecified (principal); I50.9 Heart failure, unspecified
CPT/HCPCS: 36415; 80048; 83880; 85025

== ENCOUNTER → 2024-01-14 | Outpatient (CLI) | payer MEDICARE, SELFPAY ==
[2024-01-14 14:25] LABS: Anion Gap 8 (5-15); BUN 34 mg/dL (7-18); BUN/Creat Ratio 23.6 RATIO (10-20); Calcium,Total 9.8 mg/dL (8.5-10.1); Chloride 103 mmol/L (98-107); Creatinine, Serum 1.44 mg/dL (0.55-1.02); EST Glomerular Filtration Rate 38 mL/min (>60); Est Glom Filt Rate - Afr Amer 46 mL/min (>60); Glucose 133 mg/dL (74-106); Sodium Level 141 mmol/L (136-145)
== END | disposition home or self-care (01) ==
LOC: POLAB3 13:45
PROVIDERS: PCP Family Medicine Geriatric Medicine; Visit Provider Family Medicine Geriatric Medicine
DX: E78.5 Hyperlipidemia, unspecified (principal)
CPT/HCPCS: 36415; 80048

== ENCOUNTER → 2024-02-27 | Outpatient (CLI) | payer MEDICARE, SELFPAY ==
[2024-02-27 15:36] LABS: Anion Gap 10 (5-15); BUN 29 mg/dL (7-18); BUN/Creat Ratio 19.1 RATIO (10-20); Calcium,Total 9.8 mg/dL (8.5-10.1); Chloride 100 mmol/L (98-107); Creatinine, Serum 1.52 mg/dL (0.55-1.02); EST Glomerular Filtration Rate 36 mL/min (>60); Est Glom Filt Rate - Afr Amer 44 mL/min (>60); Glucose 122 mg/dL (74-106); Sodium Level 138 mmol/L (136-145)
== END | disposition home or self-care (01) ==
LOC: LAB 14:08
PROVIDERS: PCP Family Medicine Geriatric Medicine; Referring Provider Internal Medicine Cardiovascular Disease; Visit Provider Internal Medicine Cardiovascular Disease
DX: I27.20 Pulmonary hypertension, unspecified (principal); I10 Essential (primary) hypertension
CPT/HCPCS: 36415; 80048

== ENCOUNTER → 2024-02-28 | Outpatient (CLI) | payer MEDICARE, SELFPAY ==
--- NOTE | 2024-02-28 06:28 | CDU_ITS ---
Reason For Study: lightheaded, dizziness Rt. Velocities/BP Lt. Velocities/BP Prox CCA 52.2/8.8 cm/sec. Prox CCA 55.1/6.9 cm/sec. Mid CCA 68.3/13.5 cm/sec. Mid CCA 53.2/12.6 cm/sec. Dist CCA 43.7/8.8 cm/sec. Dist CCA 62.6/13.5 cm/sec. Prox ICA 46.6/10.7 cm/sec. Prox ICA 43.7/7.8 cm/sec. Mid ICA 55.1/16.3 cm/sec. Mid ICA 64.5/20.1 cm/sec. Dist ICA 69.2/19.2 cm/sec. Dist ICA 46.9/15.2 cm/sec. Rt. ICA/CCA = 1.0. Lt. ICA/CCA = 1.2. Prox ECA 74.9/12.6 cm/sec. Prox ECA 52.2/6.0 cm/sec. Rt. Vert. 42.8/9.7 cm/sec. Lt. Vert. 56.0/19.2 cm/sec. Right Extracranial There is heterogeneous, irregular atherosclerotic plaque noted in the right common carotid artery. There is heterogeneous, irregular atherosclerotic plaque noted in the right internal carotid artery. There is homogeneous, smooth atherosclerotic plaque noted in the right external carotid artery. Antegrade flow is noted in the right vertebral artery. Left Extracranial There is heterogeneous, irregular atherosclerotic plaque noted in the left common carotid artery. There is heterogeneous, irregular atherosclerotic plaque noted in the left internal carotid artery. There is heterogeneous, irregular atherosclerotic plaque noted in the left external carotid artery. Antegrade flow is noted in the left vertebral artery. Procedure Carotid Duplex [id number]. This is a Carotid Duplex examination using B-mode, color flow and specral Doppler. The exam was diagnostic. Exam performed in department. VL/Carotid Duplex Ultrasound Interpretation Summary Mild (<50%) stenosis right extracranial internal carotid. Mild (<50%) stenosis left extracranial internal carotid. Patent and antegrade vertebrals bilaterally. Ordering Physician: Jennifer Garcia Referring Physician: Jennifer Garcia Performed By: Antwan Marcelino RVT
--- NOTE | 2024-02-28 10:31 | STRESSREP ---
Stress Test Report Date: 02/28/2024 Procedure: Pharmacologic stress nuclear imaging study Indications: Chest pain Consent: Per the patient Procedure: The patient underwent pharmacologic (Regadenoson 0.4mg ) evaluation with a peak heart rate of 93 beats per minute (61%predicted maximal heart rate) and a peak blood pressure of 118/72 mmHg. The baseline ECG demonstrated sinus rhythm with nonspecific intraventricular conduction delay. The peak pharmacologic ECG was nondiagnostic. Rare PVC noted. There was no complaint of chest discomfort during pharmacologic infusion or recovery. The patient was injected with 11.5 millicuries of technetium 99m Cardiolite and subsequently rest SPECT Cardiolite nuclear imaging was obtained in the horizontal long, vertical long, and short axis views. The patient underwent pharmacologic (Regadenoson) evaluation. The patient was injected with 36.0 millicuries of technetium 99m Cardiolite and subsequently stress SPECT Cardiolite nuclear imaging was obtained in the horizontal long, vertical long, and short axis views. A gated Cardiolite study at peak stress was obtained. The examination was stopped secondary to completion of protocol. Rest and stress SPECT Cardiolite nuclear imaging status post realignment, normalization, and attenuation correction demonstrate no fixed or reversible perfusion defects. There is end systolic thickening and brightening. The gated Cardiolite study demonstrates myocardial thickening and inward wall motion. The reported LVEF is 79%. Impression: 1. Pharmacologic (Regadenoson) evaluation 2. Peak pharmacologic ECG with no diagnostic changes. 3. Rare PVC noted. 5. Rest and stress SPECT Cardiolite nuclear imaging demonstrate relative uniform tracer uptake and myocardial perfusion appearing within normal limits. 6. The gated Cardiolite study reports an LVEF of 79%. This note was generated with [employer] software. It may contain incorrect words, spelling, and punctuation that were not noted in checking the note before signing.
== END | disposition home or self-care (01) ==
PROVIDERS: PCP Family Medicine Geriatric Medicine; Referring Provider Internal Medicine Cardiovascular Disease; Visit Provider Internal Medicine Cardiovascular Disease
DX: R42 Dizziness and giddiness (principal); I27.20 Pulmonary hypertension, unspecified; R07.89 Other chest pain; R06.09 Other forms of dyspnea; I34.0 Nonrheumatic mitral (valve) insufficiency; Z86.79 Personal history of other diseases of the circulatory system; Z95.0 Presence of cardiac pacemaker
CPT/HCPCS: 78452; 93017; 93880; A9500; A4216; J2785

== ENCOUNTER → 2024-03-06 | Outpatient (CLI) | payer MEDICARE, SELFPAY ==
[2024-03-06 14:58] LABS: Anion Gap 8 (5-15); BUN 38 mg/dL (7-18); BUN/Creat Ratio 28.1 RATIO (10-20); Calcium,Total 10.1 mg/dL (8.5-10.1); Chloride 104 mmol/L (98-107); Creatinine, Serum 1.35 mg/dL (0.55-1.02); EST Glomerular Filtration Rate 41 mL/min (>60); Est Glom Filt Rate - Afr Amer 50 mL/min (>60); Glucose 106 mg/dL (74-106); Potassium 3.2 mmol/L (3.5-5.1); Sodium Level 139 mmol/L (136-145)
== END | disposition home or self-care (01) ==
LOC: LAB 13:48
PROVIDERS: PCP Family Medicine Geriatric Medicine; Referring Provider Physician Assistant Medical; Visit Provider Physician Assistant Medical
DX: E87.6 Hypokalemia (principal)
CPT/HCPCS: 36415; 80048

== ENCOUNTER → 2024-03-27 | Outpatient (CLI) | payer MEDICARE, SELFPAY ==
[2024-03-27 13:12] LABS: Absolute Lymphocyte Count 1.55 X10^3/uL (0.83-4.51); Absolute Neutrophil Count 3.7 X10^3/uL (2.0-7.7); Basophil# 0.04 X10^3/uL; Basophil% 0.6 % (0-1); Eosinophil# 0.25 X10^3/uL; Eosinophils% 3.9 % (0-5); Hematocrit 44.1 % (37-47); Hemoglobin 14.7 g/dL (12.0-15.0); Lymphocyte # 1.55 X10^3/ul (0.83-4.51); Lymphocyte % 24.1 % (19-41); Mean Corp Hgb Conc 33.3 g/dL (32-36); Mean Platelet Vol. 11.7 fl (6.2-12.0); Monocyte# 0.85 X10^3/uL; Monocyte% 13.2 % (0-10); NRBC Flagged by Analyzer 0 % (0-5); Neutrophil # 3.72 X10^3/uL (2.7-7.7); Neutrophil % 57.9 % (47-70); Platelet Count 100 K/mm3 (150-450); RBC Distribution Width CV 13.6 % (11.6-14.6); RBC Distribution Width SD 52.8 fl (35.1-43.9); White Blood Count 6.4 K/mm3 (4.4-11.0)
[2024-03-27 13:41] LABS: Vitamin D,25 Hydroxy 12.1 ng/mL
[2024-03-27 14:06] LABS: ALB/GLOB Ratio 0.8 RATIO (0.9-2.4); AST(SGOT) 29 U/L (15-37); Alanine Aminotransfer ALT/SGPT 31 U/L (13-56); Albumin, Serum 3.4 g/dL (3.2-5.0); Alkaline Phosphatase 60 U/L (45-117); Anion Gap 8 (5-15); BUN 23 mg/dL (7-18); BUN/Creat Ratio 22.8 RATIO (10-20); Calcium,Total 8.8 mg/dL (8.5-10.1); Chloride 104 mmol/L (98-107); Cholesterol 154 mg/dL (200); Creatinine, Serum 1.01 mg/dL (0.55-1.02); EST Glomerular Filtration Rate 58 mL/min (>60); Est Glom Filt Rate - Afr Amer 70 mL/min (>60); Globulin 4.2 g/dL (2.2-4.2); Glucose 130 mg/dL (74-106); High Density Lipoprotein 61 mg/dL; Potassium 3.8 mmol/L (3.5-5.1); Protein, Total 7.6 g/dL (6.4-8.2); Sodium Level 138 mmol/L (136-145); Thyroid Stim Hormone (TSH) 1.32 uIU/mL (0.358-3.74); Triglycerides 90 mg/dL; Very Low Density Lipoprotein 18 mg/dL (5-40)
== END | disposition home or self-care (01) ==
LOC: LAB 12:22
PROVIDERS: Physician Assistant Medical; PCP Family Medicine Geriatric Medicine; Visit Provider Family Medicine Geriatric Medicine
DX: I10 Essential (primary) hypertension (principal); E55.9 Vitamin D deficiency, unspecified; E78.5 Hyperlipidemia, unspecified
CPT/HCPCS: 80053; 80061; 82306; 84443; 85025

== ENCOUNTER → 2024-07-24 | Outpatient (CLI) | payer MEDICARE, SELFPAY ==
[2024-07-24 15:13] LABS: Hematocrit 43.1 % (37-47); Hemoglobin 14.4 g/dL (12.0-15.0); Mean Corp Hgb Conc 33.4 g/dL (32-36); Mean Corpuscular Hgb 34.3 pg (27.0-32.0); Mean Corpuscular Volume 102.6 fL (81-99); Mean Platelet Vol. 11.7 fl (6.2-12.0); Platelet Count 113 K/mm3 (150-450); RBC Distribution Width CV 13.5 % (11.6-14.6); RBC Distribution Width SD 51.4 fl (35.1-43.9); White Blood Count 5.3 K/mm3 (4.4-11.0)
[2024-07-24 15:35] LABS: Anion Gap 7 (5-15); BUN 22 mg/dL (7-18); Calcium,Total 9.9 mg/dL (8.5-10.1); Chloride 102 mmol/L (98-107); Creatinine, Serum 1.05 mg/dL (0.55-1.02); EST Glomerular Filtration Rate 55 mL/min (>60); Est Glom Filt Rate - Afr Amer 67 mL/min (>60); Glucose 135 mg/dL (74-106); Potassium 3.5 mmol/L (3.5-5.1); Sodium Level 139 mmol/L (136-145)
== END | disposition home or self-care (01) ==
LOC: LAB 14:10
PROVIDERS: PCP Family Medicine Geriatric Medicine; Referring Provider Internal Medicine Cardiovascular Disease; Visit Provider Internal Medicine Cardiovascular Disease
DX: R06.09 Other forms of dyspnea (principal); R00.1 Bradycardia, unspecified; I77.9 Disorder of arteries and arterioles, unspecified; E78.5 Hyperlipidemia, unspecified; I10 Essential (primary) hypertension
CPT/HCPCS: 36415; 80048; 85027

== ENCOUNTER 2024-08-13 11:34 | Emergency (ER) | payer MEDICARE, SELFPAY ==
[2024-08-13 11:34] VITALS: BP 119/47; PULSE 80; RESP 16; TEMP 36.4; O2SAT 97
--- NOTE | 2024-08-13 13:18 | EDS_ITS ---
HPI History of Present Illness Chief Complaint: Nosebleed Detail of Chief Complaint: Nosebleed Informant: patient Narrative Narrative: Patient presents to the emergency department with complaint of a nosebleed that started around 3 AM. Patient denies any injury. She is on Eliquis for history of a flutter. She has a pacemaker. Patient states that she has had nosebleeds in the past but usually from the left side of the nose and this 1 is right- sided. She denies trauma. [facility] Medical History Alcohol abuse AV node dysfunction Bradycardia Cirrhosis of liver CKD (chronic kidney disease) stage 3, GFR 30-59 ml/min Depression SHOEMAKER (dyspnea on exertion) Dyslipidemia Fatigue GERD (gastroesophageal reflux disease) Hepatitis C HLD (hyperlipidemia) HTN (hypertension) Hypothyroidism Intermittent atrial flutter Left leg pain Leg cramps Nicotine dependence Obesity (BMI 30.0-34.9) Other specified disorders of bone density and structure, unspecified site Positive colorectal cancer screening using Cologuard test Rheumatoid arthritis Second degree AV block, Mobitz type II Unspecified viral hepatitis C without hepatic coma Vitamin D deficiency Home Medications ?Medication ?Instructions ?Recorded ?Last Taken ?Type omeprazole 40 mg capsule,delayed 40 mg PO DAILY 06/17/16 Unknown History release levothyroxine 25 mcg tablet 25 mcg PO DAILY 07/28/19 Unknown History baclofen 10 mg tablet 10 mg PO QHS 07/17/23 Unknown History venlafaxine 150 mg 150 mg PO DAILY 01/21/24 Unknown History capsule,extended release 24 hr furosemide 40 mg tablet 40 mg PO DAILY #90 tabs 01/31/24 Unknown Rx pravastatin 80 mg tablet 80 mg PO QDAY 01/31/24 Unknown History metoprolol tartrate 25 mg tablet 25 mg PO BID #180 tabs 02/28/24 Unknown Rx spironolactone 25 mg tablet 25 mg PO DAILY #90 tabs 03/06/24 Unknown Rx apixaban 5 mg tablet (Eliquis) 5 mg PO BID #180 tabs 05/15/24 Unknown Rx Allergy/AdvReac Type Severity Reaction Status Date / Time No Known Allergies Allergy Verified 01/31/24 11:05 Family History Father Silent myocardial infarction CAD (coronary artery disease) Sister Cancer thyroid Thyroid disorder Mother , 73 Hypertension Grandfather Diabetes Grandmother Diabetes Surgical History H/O arthroscopic knee surgery H/O lumpectomy H/O total hysterectomy History of ankle surgery Hx of cardiac pacemaker (~11/23/23) Hx of cataract removal with insertion of prosthetic lens S/P excision of lipoma S/P eye surgery S/P left breast biopsy S/P wrist surgery Social History Smoking Status: Current some day smoker alcohol intake: current alcohol intake frequency: 0-2 drinks per day Alcohol type: beer and hard liquor substance use type: former substance user ROS ROS ED Review of Systems ROS Unobtainable: other Constitutional Constitutional ED: Reports lethargy; Denies chills, fever(s), sweats or weight loss Eyes Eyes: Denies blurry vision, change in vision or diplopia ENT ENT ED: Reports other Details: Nosebleed ; Denies rhinorrhea or sore throat Cardiovascular Cardiovascular: Denies chest pain, orthopnea or racing heartbeat Respiratory/Chest Respiratory/Chest: Denies cough, dyspnea, dyspnea on exertion, orthopnea or sputum Gastrointestinal Gastrointestinal: Denies abdominal pain, diarrhea, nausea or vomiting Genitourinary Genitourinary ED: Denies dysuria, hematuria or urinary frequency Musculoskeletal Musculoskeletal: Denies arthralgias, back pain, myalgias or neck pain Integumentary Denies abscess, Abrasions or rash Neurologic Neurologic: Denies headache(s) or weakness Psychiatric Psychiatric: Denies anxiety, depression or suicidal thoughts Endocrine Endocrinology: Denies polydipsia, polyphagia or polyuria Hematologic/Lymphatic Hematologic/Lymphatic: Denies easy bleeding, easy bruising or lymphadenopathy Allergic/Immunologic Allergic/Immunologic ED: Denies mouth swelling, tongue swelling or urticaria EXAM Physical Exam Const Vital Signs: 08/13/24 11:34 08/13/24 13:35 Temperature 97.5 F L Temperature Source Temporal Pulse Rate 80 74 Respiratory Rate 16 18 Blood Pressure 119/47 L 110/77 Blood Pressure Mean 71 88 Pulse Ox 97 98 Oxygen Delivery Method Room Air Positive well nourished and well developed General Appearance ED: well developed and NAD HEENT Reports TM's clear and moist mucous membranes HEENT Narrative: Patient with dry clot left side of the nose that was removed. There was no bleeding associated with that. Patient also with large clot in the right nasal vault. She had small amount of clot hanging in the oropharynx. No obvious source of bleeding noted on the right side. normocephalic and atraumatic; Negative for trauma or tenderness Tympanic Membrane ED: Yes TM's clear Eyes PERRL and EOMs intact bilaterally General Eye ED: Negative for pale conjunctiva or scleral icterus Neck no lymphadenopathy, supple and no JVD General: Negative for tenderness Chest Wall inspection of chest normal and palpation of chest normal Chest: Negative for tenderness Resp normal respiratory effort and clear to auscultation bilaterally Effort and Inspection: Negative for respiratory distress or pain with movement Auscultation: Negative for rhonchi, wheezes or diminished lung sounds Cardio regular rate, regular rhythm, S1 normal heart sound, S2 normal heart sound and no murmurs Peripheral Pulses: pulses 2+ throughout GI normal to inspection, nondistended, normoactive bowel sounds, soft to palpation, non-tender, non-distended and no masses Back/Spine no CVA tenderness and no thoracic nor lumbar tenderness Extremity normal to inspection General Extremety ED: Negative for edema General Extremity: Negative for edema Neuro oriented x3, CN's II-XII intact bilaterally, no sensory deficits noted and gait normal Sensorium / Orientation: awake, alert, oriented to person, oriented to place and oriented to time Motor Exam: strength 5/5 throughout and strength abnormal Psych mental status grossly normal Skin no rashes or lesions noted and no wounds MDM MDM MDM Narrative Medical decision making narrative: I removed clot from the right side of the nose and had the patient to evacuate clot by blowing. She started having significant bleeding from the right side of the nose. I did place a 7.5 cm Rhino Rocket into the right nasal vault inflated the balloon. Will obtain an IV as well as blood counts. CBC with differential count 6.7 hemoglobin 13.5 and platelet count of 144. Chemistries unremarkable. Potassium was slightly depressed at 3.2. I will give her 40 mEq of potassium chloride p.o. Patient was observed in the department for over an hour and the bleeding has stopped. Discussed case with cardiology and will discontinue her Eliquis for 5 days. Discussed case with ENT Dr. Back who asked that she follow-up and be seen in his office next Sunday which is in 5 days. Patient advised to return if recurrent bleeding or condition should worsen anyway. Lab Data Attestation: I reviewed the patient's lab results. Labs: Laboratory Results - last 24 hr 08/13/24 13:30 WBC 6.7 RBC 3.95 L Hgb 13.5 Hct 41.3 MCV 104.6 H MCH 34.2 H MCHC 32.7 RDW Std Deviation 51.4 H RDW Coeff of Zacarias 13.3 Plt Count 144 L MPV 11.5 Immature Gran % (Auto) 0.400 Neut % (Auto) 47.0 Lymph % (Auto) 35.1 [place] % (Auto) 11.6 H Eos % (Auto) 5.2 H Baso % (Auto) 0.7 Absolute Neuts (auto) 3.2 Absolute Lymphs (auto) 2.36 Nucleated RBC % 0 Sodium 139 Potassium 3.2 L Chloride 103 Carbon Dioxide 29.0 Anion Gap 7 BUN 23 H Creatinine 0.80 Est GFR (MDRD) Af Amer 91 Est GFR (MDRD) Non-Af 75 BUN/Creatinine Ratio 28.6 H Glucose 131 H Calcium 9.3 Discharge Plan Triage Chief Complaint: Nosebleed ED Provider: Tess Robert Dx/Rx/DC Orders Clinical Impression: Epistaxis Instructions: ED Epistaxis (Adult) Prescriptions: No Action baclofen 10 mg tablet 10 mg PO QHS venlafaxine 150 mg capsule,extended release 24hr 150 mg PO DAILY pravastatin 80 mg tablet 80 mg PO QDAY omeprazole 40 MG capsule,delayed release(DR/EC) 40 mg PO DAILY levothyroxine 25 MCG tablet 25 mcg PO DAILY furosemide 40 mg tablet 40 mg PO DAILY Qty: 90 3RF metoprolol tartrate 25 mg tablet 25 mg PO BID Qty: 180 3RF spironolactone 25 mg tablet 25 mg PO DAILY Qty: 90 3RF Eliquis 5 mg tablet 5 mg PO BID Qty: 180 3RF Primary Care Provider: Zachariah Arce Chi Referrals: William Back MD [Med Staff - Active Staff] - 08/18/24 Zachariah Arce Chi, MD [Primary Care Provider] - Activity Restrictions/Additional Instructions: Stop taking Eliquis until you follow-up with ear nose and throat physician and have your packing removed at least 5 days. Print Language: Sinhala Disposition Disposition: Home, Self Care
[2024-08-13] MEDS: 0.9% Normal Saline (1000mL) 1,000 ML 1000 ML IV (13:34)
[2024-08-13 13:35] VITALS: BP 110/77; PULSE 74; RESP 18; O2SAT 98
[2024-08-13 13:46] LABS: Absolute Lymphocyte Count 2.36 X10^3/uL (0.83-4.51); Absolute Neutrophil Count 3.2 X10^3/uL (2.0-7.7); Basophil# 0.05 X10^3/uL; Basophil% 0.7 % (0-1); Eosinophil# 0.35 X10^3/uL; Eosinophils% 5.2 % (0-5); Hematocrit 41.3 % (37-47); Hemoglobin 13.5 g/dL (12.0-15.0); Lymphocyte # 2.36 X10^3/ul (0.83-4.51); Lymphocyte % 35.1 % (19-41); Mean Corp Hgb Conc 32.7 g/dL (32-36); Mean Corpuscular Hgb 34.2 pg (27.0-32.0); Mean Corpuscular Volume 104.6 fL (81-99); Mean Platelet Vol. 11.5 fl (6.2-12.0); Monocyte# 0.78 X10^3/uL; Monocyte% 11.6 % (0-10); NRBC Flagged by Analyzer 0 % (0-5); Neutrophil # 3.16 X10^3/uL (2.7-7.7); Platelet Count 144 K/mm3 (150-450); RBC Distribution Width CV 13.3 % (11.6-14.6); RBC Distribution Width SD 51.4 fl (35.1-43.9); Red Blood Count 3.95 M/mm3 (4.2-5.4); White Blood Count 6.7 K/mm3 (4.4-11.0)
[2024-08-13 13:50] LABS: Anion Gap 7 (5-15); BUN 23 mg/dL (7-18); BUN/Creat Ratio 28.6 RATIO (10-20); Calcium,Total 9.3 mg/dL (8.5-10.1); Chloride 103 mmol/L (98-107); EST Glomerular Filtration Rate 75 mL/min (>60); Est Glom Filt Rate - Afr Amer 91 mL/min (>60); Glucose 131 mg/dL (74-106); Potassium 3.2 mmol/L (3.5-5.1); Sodium Level 139 mmol/L (136-145)
[2024-08-13] MEDS: Potassium Chloride Oral Soln 20 MEQ/15 ML UDC 40 MEQ PO (14:50)
[2024-08-13 15:08] VITALS: BP 129/88; PULSE 72; RESP 15; TEMP 36.3; O2SAT 99
== END 2024-08-13 15:08 | disposition home or self-care (01) ==
PROVIDERS: Emergency Provider Emergency Medicine; PCP Family Medicine Geriatric Medicine; Visit Provider Emergency Medicine
DX: R04.0 Epistaxis (principal); N18.30 Chronic kidney disease, stage 3 unspecified; F17.200 Nicotine dependence, unspecified, uncomplicated; Z79.01 Long term (current) use of anticoagulants; Z95.0 Presence of cardiac pacemaker
CPT/HCPCS: 30905; 80048; 85025; 99283; J7030; A4216

== ENCOUNTER 2024-11-14 13:01 | Inpatient (IN) | payer MEDICARE, SELFPAY ==
[2024-11-14] VITALS (7 sets, daily range): BP systolic 93–143; BP diastolic 46–77; PULSE 68–74; RESP 16–19; TEMP 36.3–36.8; O2SAT 94–100; BMI 31.1; BMI 30.7
--- NOTE | 2024-11-14 13:50 | EKG12_ITS ---
Test Reason : EDEMA Blood Pressure : */* mmHG Vent. Rate : 69 BPM Atrial Rate : 35 BPM P-R Int : * ms QRS Dur : 132 ms QT Int : 466 ms P-R-T Axes : * 236 74 degrees QTcB Int : 499 ms Ventricular-paced rhythm Abnormal ECG Confirmed by JOSE HE, SONNY ([id number]), content editor GREY KEANE ([id number]) on 11/18/2024 7:19:33 AM Referred By: Gemma Higginbotham Confirmed By: SONNY GARCIA MD
--- NOTE | 2024-11-14 13:50 | RAD_ITS ---
STUDY: X-RAY CHEST REASON FOR EXAM: Female, 68 years old. Edema TECHNIQUE: PA and lateral views of the chest. COMPARISON: Comparison is made with prior study dated December 27, 2023. FINDINGS: The lungs are clear and expanded. There is no demonstrated pleural abnormality. There is mild cardiac enlargement. There is calcification of the mitral valve annulus. A left-sided dual-chamber pacemaker is seen. Normal mediastinum and yadiel. Normal visualized pulmonary arteries. There is atherosclerotic calcification of the aortic arch with tortuosity. There is demineralization of the osseous structures. Normal visualized ribs, clavicles, and shoulders. There is no demonstrated abnormality of the visualized soft tissue structures of the upper abdomen. RAD/Chest PA and Lateral IMPRESSION: Stable examination. Mild cardiomegaly. The lungs are clear. Electronically Signed: Juvenal Arango MD at 14:24 EST ,
[2024-11-14 14:18] LABS: Absolute Lymphocyte Count 1.37 X10^3/uL (0.83-4.51); Absolute Neutrophil Count 4.1 X10^3/uL (2.0-7.7); Basophil# 0.04 X10^3/uL; Basophil% 0.6 % (0-1); Eosinophil# 0.15 X10^3/uL; Eosinophils% 2.3 % (0-5); Hematocrit 35.1 % (37-47); Hemoglobin 10.8 g/dL (12.0-15.0); Lymphocyte # 1.37 X10^3/ul (0.83-4.51); Lymphocyte % 21.2 % (19-41); Mean Corp Hgb Conc 30.8 g/dL (32-36); Mean Corpuscular Hgb 29.3 pg (27.0-32.0); Mean Corpuscular Volume 95.1 fL (81-99); Mean Platelet Vol. 12.9 fl (6.2-12.0); Monocyte# 0.77 X10^3/uL; Monocyte% 11.9 % (0-10); NRBC Flagged by Analyzer 0.3 % (0-5); Neutrophil # 4.12 X10^3/uL (2.7-7.7); Neutrophil % 63.7 % (47-70); Platelet Count 158 K/mm3 (150-450); RBC Distribution Width CV 15.7 % (11.6-14.6); RBC Distribution Width SD 54.4 fl (35.1-43.9); Red Blood Count 3.69 M/mm3 (4.2-5.4); White Blood Count 6.5 K/mm3 (4.4-11.0)
[2024-11-14 14:29] LABS: Anion Gap 8 (5-15); BUN 35 mg/dL (7-18); BUN/Creat Ratio 23.8 RATIO (10-20); Calcium,Total 9.6 mg/dL (8.5-10.1); Chloride 97 mmol/L (98-107); Creatinine, Serum 1.47 mg/dL (0.55-1.02); EST Glomerular Filtration Rate 37 mL/min (>60); Est Glom Filt Rate - Afr Amer 45 mL/min (>60); Estimated Creatinine Clearance 33.42 ml/min; Glucose 130 mg/dL (74-106); Potassium 2.8 mmol/L (3.5-5.1); Sodium Level 138 mmol/L (136-145)
[2024-11-14 14:55] LABS: BNP,B-Type NATRIURETIC PEPTIDE 896.4 pg/mL (0-100)
[2024-11-14 15:14] LABS: Magnesium 1.8 mg/dL (1.6-2.6)
--- NOTE | 2024-11-14 15:58 | HP.PCM.HOS_ITS ---
HPI - General General Date of Admission: 11/14/24 Date of Service: 11/14/24 Chief Complaint: Increased LE swelling HPI Narrative JACOBY MARION, is a 68-year-old female with a history of hypothyroidism, GERD, paroxysmal atrial fibrillation, secondary heart block with permanent pacemaker who presented to [facility] 11/14/2024 with increased bilateral lower extremity swelling. In the ED she was found to have an FARIBA with a creatinine of 1.4 with baseline closer to 1 as well as hypokalemia with potassium of 2.8 and increase in her BNP to 896 and was observed to have significant pitting in her bilateral lower extremities. She has not been making much urine despite taking her Lasix so hospitalist contacted for admission for her FARIBA and for IV diuresis. Patient evaluated family member at bedside, reports she was in her usual health until several days ago when she began developing bilateral lower extremity pitting edema that is worsened over several days, legs and feet are swollen somewhat tight so while she can get up and walk around its uncomfortable. Denies any changes in her medications, no abdominal pain, no shortness of breath or cough, no chest pain. No fevers or chills or other acute complaints. [facility] Medical History Alcohol abuse AV node dysfunction Bradycardia Cirrhosis of liver CKD (chronic kidney disease) stage 3, GFR 30-59 ml/min Depression SHOEMAKER (dyspnea on exertion) Dyslipidemia Fatigue GERD (gastroesophageal reflux disease) Hepatitis C HLD (hyperlipidemia) HTN (hypertension) Hypothyroidism Intermittent atrial flutter Left leg pain Leg cramps Nicotine dependence Obesity (BMI 30.0-34.9) Other specified disorders of bone density and structure, unspecified site Positive colorectal cancer screening using Cologuard test Rheumatoid arthritis Second degree AV block, Mobitz type II Unspecified viral hepatitis C without hepatic coma Vitamin D deficiency Home Medications ?Medication ?Instructions ?Recorded ?Last Taken ?Type omeprazole 40 mg capsule,delayed 40 mg PO DAILY 06/17/16 Unknown History release levothyroxine 25 mcg tablet 25 mcg PO DAILY 07/28/19 Unknown History baclofen 10 mg tablet 10 mg PO QHS 07/17/23 Unknown History venlafaxine 150 mg 150 mg PO DAILY 01/21/24 Unknown History capsule,extended release 24 hr furosemide 40 mg tablet 40 mg PO DAILY #90 tabs 01/31/24 Unknown Rx pravastatin 80 mg tablet 80 mg PO QDAY 01/31/24 Unknown History metoprolol tartrate 25 mg tablet 25 mg PO BID #180 tabs 02/28/24 Unknown Rx spironolactone 25 mg tablet 25 mg PO DAILY #90 tabs 03/06/24 Unknown Rx apixaban 5 mg tablet (Eliquis) 5 mg PO BID #180 tabs 05/15/24 Unknown Rx Allergy/AdvReac Type Severity Reaction Status Date / Time No Known Allergies Allergy Verified 11/14/24 13:04 Family History Father Silent myocardial infarction CAD (coronary artery disease) Sister Cancer thyroid Thyroid disorder Mother , 73 Hypertension Grandfather Diabetes Grandmother Diabetes Surgical History H/O arthroscopic knee surgery H/O lumpectomy H/O total hysterectomy History of ankle surgery Hx of cardiac pacemaker (~11/23/23) Hx of cataract removal with insertion of prosthetic lens S/P excision of lipoma S/P eye surgery S/P left breast biopsy S/P wrist surgery Social History Smoking Status: Current some day smoker tobacco type: cigarettes alcohol intake: current alcohol intake frequency: 0-2 drinks per day Alcohol type: beer and hard liquor substance use type: former substance user ROS ROS Narrative General: Denies fever/chills HENT: Denies headache, denies stuffy nose, denies sore throat EYES: Denies changes in vision Resp: Denies cough, denies shortness of breath Cardiac: Denies chest pain GI: Denies abdominal pain, denies changes in bowel, denies nausea/vomiting : Denies changes in urination Extremity: Increasing bilateral lower extremity pitting edema MSK: Denies weakness Neuro: Denies any numbness/tingling Heme: Denies any bleeding or bruising Skin: Some erythema on both lower extremities Psychiatric: No complaints voiced Vital Signs Vital Signs Vital Signs: 11/14/24 13:02 11/14/24 15:01 11/14/24 15:47 Temperature 97.3 F L 98.3 F Temperature Source Oral Pulse Rate 69 74 69 Respiratory Rate 16 19 H 18 Blood Pressure 122/62 H 126/46 H 143/52 H Blood Pressure Mean 82 72 82 Pulse Ox 100 99 94 Oxygen Delivery Method Room Air Room Air Weight Weight: 74.843 kg Body Mass Index (BMI) 31.1 Physical Exam Narrative General: Alert, oriented, no apparent distress HEENT: Atraumatic, normocephalic Eyes: Anicteric, normal conjunctiva, extraocular movements grossly intact Neck: Supple Respiratory: Somewhat diminished bilaterally, normal respiratory effort Cardiovascular: Regular rate and rhythm GI: Soft, nontender, nondistended Extremities: 2+ bilateral lower extremity pitting edema up to the knees Musculoskeletal: Moving all extremities Neuro: No overt focal neurological deficits Skin: Some erythema on both lower extremities Psych: Cooperative Results Lab / Micro Data 11/14/24 13:30 11/14/24 13:30 Labs: Laboratory Results - last 24 hr 11/14/24 13:30: WBC 6.5, RBC 3.69 L, Hgb 10.8 L, Hct 35.1 L, MCV 95.1, MCH 29.3, MCHC 30.8 L, RDW Std Deviation 54.4 H, RDW Coeff of Zacarias 15.7 H, Plt Count 158, M PV 12.9 H, Immature Gran % (Auto) 0.300, Neut % (Auto) 63.7, Lymph % (Auto) 21.2, [place] % (Auto) 11.9 H, Eos % (Auto) 2.3, Baso % (Auto) 0.6, Absolute Neuts (auto) 4.1, Absolute Lymphs (auto) 1.37, Nucleated RBC % 0.3, Sodium 138, P otassium 2.8 L, Chloride 97 L, Carbon Dioxide 33.0 H, Anion Gap 8, BUN 35 H, C reatinine 1.47 H, Estim Creat Clear Calc 33.42, Est GFR (MDRD) Af Amer 45 L, Est GFR (MDRD) Non-Af 37 L, BUN/Creatinine Ratio 23.8 H, Glucose 130 H, Calcium 9.6, Magnesium 1.8, B-Natriuretic Peptide 896.4 H Imaging Radiology Impression Chest X-Ray 11/14/24 13:50 IMPRESSION: Stable examination. Mild cardiomegaly. The lungs are clear. Electronically Signed: Juvenal Arango MD at 14:24 EST , Assessment & Plan Assessment/Plan (1) Fluid overload: PLAN: Plan #Acute exacerbation of chronic heart failure with preserved ejection fraction -Admit to telemetry -BNP 896 -CXR similar to previous -Continue IV lasix -The patient's history it is documented history of heart failure preserved ejection fraction but last echo noted in cardiology note was from 11/22/2023 with an EF of 62% and RVSP of 49 but no comment on diastolic function -Repeat echo ordered -Daily weights, I's and O's -Fluid restriction, heart healthy diet # FARIBA -Patient with creatinine of 1.47 with a baseline closer to 1 -May be cardiorenal as patient appears volume overloaded -Will diurese and repeat in the a.m. -If no improvement can consider further workup and evaluation # Anemia -Hemoglobin 10.8 -Has been variable in the past and at times has been in the 11 range but sometimes is up to the 14 range -May be dilutional due to volume overload but unclear -Check iron panel and reticulocyte count -If cell lines do not increase with diuresis and iron studies consistent with iron deficiency may need further workup and FOBT inpatient versus outpatient -Given patient does not note any overt or active bleeding we will continue her Eliquis for now with low threshold to hold if there is any further decrease # Hypokalemia -2.8 on presentation -Replace -Will repeat after replacement #Paroxysmal Atrial Fibrillation -EKG: Ventricularly paced -Rate control: Metoprolol -Anticoagulation: Eliquis #Hypothyroidism -Continue Synthroid -Will check TSH in the a.m. #GERD -Continue PPI #Depression/anxiety -Continue home medications # History of secondary heart block with permanent pacemaker -Noted -Continue home metoprolol and other medications as above # History of hepatitis C and cirrhosis -Continue patient's spironolactone and adding IV Lasix #DVT ppx: Continue Marleyquis Marija Aceves MD Charges/Coding Visit Charges Inpatient E&M: 37543 Init Hosp L2
[2024-11-14 16:40] LABS: Ferritin 13 ng/mL (8-252); Iron 31 ug/dL (50-170); Iron Binding Capacity,Total 492 ug/dL (250-450); PERCENT IRON SATURATION 6.3 % (15.0-55.0)
--- NOTE | 2024-11-14 16:52 | ECHOCS_ITS ---
Reason For Study: OTHER Procedure This was a 2D Doppler, Color Flow transthoracic echocardiogram. The study was technically difficult. Patient was uncooperative. Contrast injection was performed. Exam performed portable in patient room. Left Ventricle Normal LV size. The estimated ejection fraction is 75 %. Unable to assess diastolic dysfunction. No regional wall motion abnormalities noted. Right Ventricle Normal RV size. ICD or pacer leads identified within the right ventricle. Normal systolic function. Atria The left atrium is severely enlarged. The right atrium is moderately enlarged. ICD or pacer leads identified within the right atrium. No doppler evidence for ASD. Mitral Valve There is severe mitral annular calcification. There is no mitral valve stenosis. Trivial mitral valve insufficiency. Tricuspid Valve There is no tricuspid stenosis. Trivial tricuspid valve insufficiency. Pulmonary artery systolic pressure is 25 mmHg. Aortic Valve Trisinus/trileaflet aortic valve. Aortic sclerosis, no stenosis. There is no aortic stenosis. No aortic valve insufficiency. Great Vessels Normal aortic root. Pericardium/Pleural No pericardial effusion. Medication Diluted definity 2ml given slow IV push to enhance endocardial definition. MMode/2D Measurements & Calculations LAV(MOD-bp): 83.0 ml LVAd ap4: 25.4 cm2 SV(MOD-sp4): 54.9 ml LAV(MOD-bp) Indexed: 48.0 ml/m2 LVLd ap4: 7.1 cm SI(MOD-sp4): 31.8 ml/m2 LAV(MOD-sp2): 74.4 ml EDV(MOD-sp4): 76.4 ml LAV(MOD-sp4): 89.7 ml EDV(sp4-el): 76.7 ml LVAs ap4: 11.3 cm2 LVLs ap4: 5.3 cm ESV(MOD-sp4): 21.5 ml ESV(sp4-el): 20.4 ml EF(MOD-sp4): 71.8 % EF(sp4-el): 73.5 % SV(sp4-el): 56.3 ml LA A4 area: 28.0 cm2 LA dimension(2D): 5.3 cm RA A4 area: 27.6 cm2 Time Measurements MV dec time: 0.21 sec Doppler Measurements & Calculations MV E max tyler: 122.9 cm/sec Lat Peak E' Tyler: 6.3 cm/sec Med Peak E' Tyler: 3.9 cm/sec MV A max tyler: 41.3 cm/sec E/E' lat: 19.4 E/E' med: 31.6 MV E/A: 3.0 MV dec slope: 598.3 cm/sec2 Ao V2 max: 122.9 cm/sec LV V1 max: 82.5 cm/sec Ao max P.0 mmHg LV V1 max P.4 mmHg Ao V2 mean: 79.5 cm/sec LV V1 mean P.4 mmHg Ao mean P.9 mmHg LV V1 mean: 46.4 cm/sec Ao V2 VTI: 21.5 cm LV V1 VTI: 11.2 cm AV (velocity ratio): 0.52 PA V2 max: 96.5 cm/sec PA V2 mean: 64.2 cm/sec ECHO/Echo Complete W/ Contrast Interpretation Summary The estimated ejection fraction is 75 %. The left atrium is severely enlarged. The right atrium is moderately enlarged. Trivial mitral valve insufficiency. Ordering Physician: Marija Aceves Referring Physician: Gemma Higginbotham Performed By: Oanh Cardenas RCS
--- NOTE | 2024-11-14 17:15 | EDS_ITS ---
HPI History of Present Illness Chief Complaint: Edema Informant: patient Narrative Narrative: Patient 68-year-old female with heart failure with preserved ejection fraction, hepatitis C with liver cirrhosis, hypertension, pacemaker and intermittent atrial flutter (on Eliquis) presents with worsening lower extremity swelling and foot discomfort. She states has been hard to walk and worsen over the past few days. She has been compliant with her Lasix and spironolactone but she is not urinating as much. She notes that she has had a hard time walking because of pain in her feet and also increased dyspnea on exertion. She states that she remembers once having swelling like this after she got her pacemaker but does not recall how it resolved what was done to treat it. Denies any trauma. Denies any fever or chills. No other complaints or concerns reported at this time. [facility] Medical History Intermittent atrial flutter Second degree AV block, Mobitz type II AV node dysfunction Alcohol abuse Nicotine dependence Hepatitis C Cirrhosis of liver CKD (chronic kidney disease) stage 3, GFR 30-59 ml/min Obesity (BMI 30.0-34.9) Dyslipidemia SHOEMAKER (dyspnea on exertion) Bradycardia Other specified disorders of bone density and structure, unspecified site Rheumatoid arthritis Fatigue Unspecified viral hepatitis C without hepatic coma Hypothyroidism Leg cramps Vitamin D deficiency GERD (gastroesophageal reflux disease) HLD (hyperlipidemia) HTN (hypertension) Left leg pain Depression Positive colorectal cancer screening using Cologuard test Home Medications ?Medication ?Instructions ?Recorded ?Last Taken ?Type omeprazole 40 mg capsule,delayed 40 mg PO DAILY 06/17/16 11/13/24 History release levothyroxine 25 mcg tablet 25 mcg PO DAILY 07/28/19 11/13/24 History baclofen 10 mg tablet 10 mg PO QHS 07/17/23 11/13/24 History venlafaxine 150 mg 150 mg PO DAILY 01/21/24 11/13/24 History capsule,extended release 24 hr furosemide 40 mg tablet 40 mg PO DAILY #90 tabs 01/31/24 11/13/24 Rx metoprolol tartrate 25 mg tablet 25 mg PO BID #180 tabs 02/28/24 11/13/24 Rx spironolactone 25 mg tablet 25 mg PO DAILY #90 tabs 03/06/24 11/13/24 Rx apixaban 5 mg tablet (Eliquis) 5 mg PO BID #180 tabs 05/15/24 11/13/24 Rx biotin 5 mg capsule 5 mg PO DAILY 11/14/24 11/13/24 History pravastatin 40 mg tablet 40 mg PO DAILY 11/14/24 11/13/24 History Allergy/AdvReac Type Severity Reaction Status Date / Time No Known Allergies Allergy Verified 11/14/24 13:04 Family History Father Silent myocardial infarction CAD (coronary artery disease) Sister Cancer thyroid Thyroid disorder Mother , 73 Hypertension Grandfather Diabetes Grandmother Diabetes Surgical History Hx of cataract removal with insertion of prosthetic lens Hx of cardiac pacemaker (~11/23/23) S/P eye surgery S/P left breast biopsy S/P excision of lipoma History of ankle surgery S/P wrist surgery H/O lumpectomy H/O arthroscopic knee surgery H/O total hysterectomy Social History Smoking Status: Current some day smoker tobacco type: cigarettes alcohol intake: current alcohol intake frequency: 0-2 drinks per day Alcohol type: beer and hard liquor substance use type: former substance user ROS ROS ED Constitutional Constitutional ED: Denies chills or fever(s) Cardiovascular Cardiovascular: Denies chest pain or palpitations Respiratory/Chest Respiratory/Chest: Reports dyspnea; Denies cough Gastrointestinal Gastrointestinal: Denies abdominal pain, nausea or vomiting Musculoskeletal Musculoskeletal: Reports other Details: leg swelling Neurologic Neurologic: Reports weakness Hematologic/Lymphatic Hematologic/Lymphatic: Reports easy bleeding, easy bruising and other Details: on Eliquis EXAM Physical Exam Const Vital Signs: 11/14/24 13:02 11/14/24 15:01 11/14/24 15:47 Temperature 97.3 F L 98.3 F Temperature Source Oral Pulse Rate 69 74 69 Respiratory Rate 16 19 H 18 Blood Pressure 122/62 H 126/46 H 143/52 H Blood Pressure Mean 82 72 82 Pulse Ox 100 99 94 Oxygen Delivery Method Room Air Room Air Positive well nourished and well developed General Appearance ED: well developed and NAD HEENT Reports moist mucous membranes Neck supple and no JVD Chest Wall inspection of chest normal and palpation of chest normal Resp normal respiratory effort and clear to auscultation bilaterally Cardio regular rate and regular rhythm GI normal to inspection, nondistended, normoactive bowel sounds and non-tender GI Narrative: no fluid wave Auscultation: normoactive bowel sounds Palpation: soft; Negative for tender or guarding Extremity Extremity Narrative: 4+ pitting edema up to the mid tibia present. Biphasic DP pulses present. General Extremety ED: Yes edema General Extremity: edema Neuro oriented x3 Sensorium / Orientation: alert Motor Exam: general weakness Psych mental status grossly normal Skin no wounds Skin Narrative: Patient has some mild erythema to the bilateral lower legs more consistent with telangiectasia. No associated warmth. No cellulitic changes present. MDM MDM MDM Narrative Medical decision making narrative: Patient evaluated for worsening lower extremity swelling. Patient peers generally weak but no acute distress. Vital signs normal in the emergency room. She does have lower extremity edema with pitting does pretty significant. Cardiac versus hepatic causes for the swelling. Patient is anticoagulated elucidation for DVT. Skin changes neck system with the bilateral cellulitis and patient is not have any other infectious symptoms. CBC shows mild anemia with a hemoglobin 10.8. Patient to report any bleeding. Question this could be delusional from fluid overload. Will continue to monitor inpatient. Platelets are normal. CMP does show an elevation of her creatinine of 1.47 and a BUN of 35. Creatinine is above her baseline of 0.8-1. BNP is uptrending as well at 896. Potassium is low at 2.8. Magnesium added on which is normal. Patient required potassium supplementation replacement as well. Chest x-ray viewed by myself as well as radiology does not show any acute process but did show some mild cardiomegaly. Patient remitted for diuresis and further monitoring of her FARIBA. Suspect that this could be cardiorenal in nature. Case has a hospitalist, Dr. Aceves. Lab Data Attestation: I reviewed the patient's lab results. Labs: Laboratory Results - last 24 hr 11/14/24 13:30 WBC 6.5 RBC 3.69 L Hgb 10.8 L Hct 35.1 L MCV 95.1 MCH 29.3 MCHC 30.8 L RDW Std Deviation 54.4 H RDW Coeff of [place] 15.7 H Plt Count 158 MPV 12.9 H Immature Gran % (Auto) 0.300 Neut % (Auto) 63.7 Lymph % (Auto) 21.2 [place] % (Auto) 11.9 H Eos % (Auto) 2.3 Baso % (Auto) 0.6 Absolute Neuts (auto) 4.1 Absolute Lymphs (auto) 1.37 Nucleated RBC % 0.3 Sodium 138 Potassium 2.8 L Chloride 97 L Carbon Dioxide 33.0 H Anion Gap 8 BUN 35 H Creatinine 1.47 H Estim Creat Clear Calc 33.42 Est GFR (MDRD) Af Amer 45 L Est GFR (MDRD) Non-Af 37 L BUN/Creatinine Ratio 23.8 H Glucose 130 H Calcium 9.6 Magnesium 1.8 Iron 31 L TIBC 492 H Iron Saturation 6.3 L Ferritin 13 B-Natriuretic Peptide 896.4 H Radiography Chest X-Ray - ED: 2 View, Read by ED Physician, Read by Radiologist, No Acute Disease and Cardiomegaly Diagnostic Testing: Clinical Impression(s) from Imaging Studies Chest X-Ray 11/14/24 13:50 IMPRESSION: Stable examination. Mild cardiomegaly. The lungs are clear. Electronically Signed: Juvenal Arango MD at 14:24 EST , Rhythm Strip Rhythm Strip: Paced Rate: 69 Ectopy: None EKG Initial EKG: Attestation: I personally reviewed and interpreted this EKG as follows: Interpretation: Paced Comments: Ventricular paced rhythm at a rate of 69 bpm Normal axis Normal intervals Normal ST segments Discharge Plan Dx/Rx/DC Orders Clinical Impression: Fluid overload, FARIBA (acute kidney injury), Hypokalemia Disposition Disposition: Acute Care Hospital [facility] Discharge Date/Time: 11/14/24 16:38
[2024-11-14] MEDS: Potassium Chloride 10mEq/100mL 10 MEQ/100 ML IV.SOLN. 100 MEQ IV BOLUS ×2 (17:37→19:38)
[2024-11-14] MEDS: Furosemide 40 MG/4 ML Vial IV (17:38)
[2024-11-14] MEDS: Potassium Chloride Oral Tablet 20 MEQ 40 MEQ PO (17:38)
--- NOTE | 2024-11-14 18:09 | CASEMGMT ---
Care Management Face to Face with patient for initial transition planning/care coordination assessment in the ED.? This functional tester typewriters introduced self and role at [facility]. Patient alert and oriented. Patients? sister at bedside, permission given for her to participate in assessment.? Patients? sister answered majority of questions.? Care providers, pharmacy, and demographics verified. Admitting Diagnosis: ?Fluid Overload Other diagnosis history: ?cirrhosis, rheumatoid arthritis, HTN, CKD PCP: ?Vonda Specialists: Jose Preferred Pharmacy: [facility] [place] Insurance: [employer] Prescription Benefit:?yes Living Will/HPOA: none LNOK: sister Living Arrangements: Lives alone in a one story house. Is able to compete all ADLs and IADLS, sister stops over 3-4 days a week to help. Transportation: sisters transport DME: can, bedside commode, pulse ox, blood pressure cuff HHC: ?none SNF/Rehab: ?none Community Resources: None Behavioral Health History: none Patient goals: Patient wishes to discharge home. Patient states he has no further needs or concerns at this time. Disposition Plan: admission to acute; RN CM/SW to follow for discharge planning needs that may arise. Ignacia Jackson, TAX APPRAISER, SCRIPT WORKER
--- NOTE | 2024-11-14 19:42 | PCM.HOSP.N ---
Hospitalist Note Patient does have labs consistent with iron deficiency anemia, reticulocyte panel pending, will start on iron supplementation and order fecal occult
[2024-11-14 22:08] LABS: Platelet Count 145 K/mm3 (150-450); RET-HE 24.1 pg (30-35); Reticulocyte Count 2.69 % (0.5-1.5)
[2024-11-14] MEDS: Pravastatin 40 MG Tablet PO (22:20)
[2024-11-14] MEDS: APIXABAN 5 MG TABLET PO (22:20)
[2024-11-14] MEDS: Baclofen 10 MG Tablet PO (22:21)
[2024-11-14] MEDS: Metoprolol Tartrate 25 MG Tablet PO (22:24)
[2024-11-14 22:51] LABS: Anion Gap 7 (5-15); BUN 36 mg/dL (7-18); BUN/Creat Ratio 26.7 RATIO (10-20); Calcium,Total 9.2 mg/dL (8.5-10.1); Chloride 101 mmol/L (98-107); Creatinine, Serum 1.35 mg/dL (0.55-1.02); EST Glomerular Filtration Rate 41 mL/min (>60); Est Glom Filt Rate - Afr Amer 50 mL/min (>60); Estimated Creatinine Clearance 36.14 ml/min; Glucose 133 mg/dL (74-106); Potassium 3.9 mmol/L (3.5-5.1); Sodium Level 140 mmol/L (136-145)
[2024-11-15 04:00] VITALS: BP 108/63; PULSE 69; RESP 16; TEMP 36.5; O2SAT 98
[2024-11-15 05:00] VITALS: PULSE 69
[2024-11-15 05:09] VITALS: BMI 30.7
[2024-11-15] MEDS: Levothyroxine 25 MCG TABLET PO (06:27)
[2024-11-15 07:16] LABS: Absolute Lymphocyte Count 1.12 X10^3/uL (0.83-4.51); Absolute Neutrophil Count 3.6 X10^3/uL (2.0-7.7); Basophil# 0.03 X10^3/uL; Basophil% 0.5 % (0-1); Eosinophil# 0.13 X10^3/uL; Eosinophils% 2.3 % (0-5); Hematocrit 31.5 % (37-47); Hemoglobin 9.6 g/dL (12.0-15.0); Lymphocyte # 1.12 X10^3/ul (0.83-4.51); Lymphocyte % 19.4 % (19-41); Mean Corp Hgb Conc 30.5 g/dL (32-36); Mean Corpuscular Hgb 28.7 pg (27.0-32.0); Mean Corpuscular Volume 94.3 fL (81-99); Mean Platelet Vol. 12.8 fl (6.2-12.0); Monocyte# 0.83 X10^3/uL; Monocyte% 14.4 % (0-10); NRBC Flagged by Analyzer 0.5 % (0-5); Neutrophil # 3.64 X10^3/uL (2.7-7.7); Neutrophil % 63.1 % (47-70); Platelet Count 124 K/mm3 (150-450); RBC Distribution Width CV 15.8 % (11.6-14.6); RBC Distribution Width SD 54.5 fl (35.1-43.9); Red Blood Count 3.34 M/mm3 (4.2-5.4); White Blood Count 5.8 K/mm3 (4.4-11.0)
--- NOTE | 2024-11-15 09:12 | PN.HOSP_ITS ---
Reason for Visit Reason for Visit: Diagnoses Fluid overload, unspecified (11/14/24) Subjective Subjective Ankle swelling much better. Denies shortness of breath. Objective Data Objective Data Vital Signs: Vital Signs Temp Pulse Resp BP Pulse Ox O2 Del Method 36.5 C L 69 16 108/63 98 Room Air 11/15/24 04:00 11/15/24 05:00 11/15/24 04:00 11/15/24 04:00 11/15/24 04:00 11/15/24 04:00 Oxygen Delivery Method Room Air Weight: 73.7 kg Body Mass Index (BMI) 30.7 Intake & Output: Intake and Output for Last 24 Hours 11/13/24 11/14/24 11/15/24 23:59 23:59 23:59 Intake Total 200 / 560 600 / 600 Output Total 1050 / 1050 Balance 200 / -140 -450 / -450 Lab / Micro Data 11/15/24 06:22 11/15/24 06:22 Labs: Laboratory Results - last 24 hr 11/14/24 13:30: WBC 6.5, RBC 3.69 L, Hgb 10.8 L, Hct 35.1 L, MCV 95.1, MCH 29.3, MCHC 30.8 L, RDW Std Deviation 54.4 H, RDW Coeff of Zacarias 15.7 H, Plt Count 158, M PV 12.9 H, Immature Gran % (Auto) 0.300, Neut % (Auto) 63.7, Lymph % (Auto) 21.2, [place] % (Auto) 11.9 H, Eos % (Auto) 2.3, Baso % (Auto) 0.6, Absolute Neuts (auto) 4.1, Absolute Lymphs (auto) 1.37, Nucleated RBC % 0.3, Sodium 138, P otassium 2.8 L, Chloride 97 L, Carbon Dioxide 33.0 H, Anion Gap 8, BUN 35 H, C reatinine 1.47 H, Estim Creat Clear Calc 33.42, Est GFR (MDRD) Af Amer 45 L, Est GFR (MDRD) Non-Af 37 L, BUN/Creatinine Ratio 23.8 H, Glucose 130 H, Calcium 9.6, Magnesium 1.8, Iron 31 L, TIBC 492 H, Iron Saturation 6.3 L, Ferritin 13, B- Natriuretic Peptide 896.4 H 11/14/24 22:00: Retic Count 2.69 H, Immature Retic Fraction 33.20 H, Retic Hgb Equivalent 24.1 L, Sodium 140, Potassium 3.9, Chloride 101, Carbon Dioxide 32.0, Anion Gap 7, BUN 36 H, Creatinine 1.35 H, Estim Creat Clear Calc 36.14, Est GFR (MDRD) Af Amer 50 L, Est GFR (MDRD) Non-Af 41 L, BUN/Creatinine Ratio 26.7 H, G lucose 133 H, Calcium 9.2 11/15/24 06:22: WBC 5.8, RBC 3.34 L, Hgb 9.6 L, Hct 31.5 L, MCV 94.3, MCH 28.7, MCHC 30.5 L, RDW Std Deviation 54.5 H, RDW Coeff of [place]acarias 15.8 H, Plt Count 124 L, MPV 12.8 H, Immature Gran % (Auto) 0.300, Neut % (Auto) 63.1, Lymph % (Auto) 19.4, [place] % (Auto) 14.4 H, Eos % (Auto) 2.3, Baso % (Auto) 0.5, Absolute Neuts (auto) 3.6, Absolute Lymphs (auto) 1.12, Nucleated RBC % 0.5 Radiography Diagnostic Testing: Radiology Impression Chest X-Ray 11/14/24 13:50 IMPRESSION: Stable examination. Mild cardiomegaly. The lungs are clear. Electronically Signed: Juvenal Arango MD at 14:24 EST , Rhythm Strip Rhythm Strip: Paced Rate: 69 Ectopy: None Physical Exam Const alert and no apparent distress Resp normal respiratory effort, no retractions, no use of accessory muscles and clear to auscultation bilaterally Cardio regular rate, regular rhythm, S1 normal heart sound and S2 normal heart sound GI normal to inspection, nondistended, normoactive bowel sounds, soft to palpation, non-tender and non-distended Assessment & Plan Assessment/Plan (1) (HFpEF) heart failure with preserved ejection fraction: PLAN: On IV furosemide. On room air. Change back to PO. Echo ordered. PLAN: Plan Hypokalemia * improved after replacement. Paroxysmal Atrial Fibrillation * EKG: Ventricularly paced * Continue metoprolol and apixaban. Chronic conditions: * Hypothyroidism-Continue Synthroid-Will check TSH in the a.m. * GERD-Continue PPI * Depression/anxiety-Continue home medications * History of secondary heart block with permanent ehkzrmrie-Cbfjw-Tqybwwfp home metoprolol and other medications as above * History of hepatitis C and cirrhosis-Continue patient's spironolactone and adding IV Lasix DVT ppx: Continue Eliquis Patient improved much faster than anticipated.
[2024-11-15 09:52] LABS: ALB/GLOB Ratio 0.8 RATIO (0.9-2.4); AST(SGOT) 18 U/L (15-37); Alanine Aminotransfer ALT/SGPT 17 U/L (13-56); Albumin, Serum 3.1 g/dL (3.2-5.0); Alkaline Phosphatase 48 U/L (45-117); Anion Gap 7 (5-15); BUN 37 mg/dL (7-18); BUN/Creat Ratio 27.6 RATIO (10-20); Calcium,Total 9.5 mg/dL (8.5-10.1); Chloride 101 mmol/L (98-107); Cholesterol 68 mg/dL (200); Creatinine, Serum 1.34 mg/dL (0.55-1.02); EST Glomerular Filtration Rate 42 mL/min (>60); Est Glom Filt Rate - Afr Amer 50 mL/min (>60); Estimated Creatinine Clearance 36.38 ml/min; Globulin 3.8 g/dL (2.2-4.2); Glucose 117 mg/dL (74-106); High Density Lipoprotein 23 mg/dL; Magnesium 1.8 mg/dL (1.6-2.6); Potassium 3.6 mmol/L (3.5-5.1); Protein, Total 6.9 g/dL (6.4-8.2); Sodium Level 140 mmol/L (136-145); Triglycerides 65 mg/dL; Very Low Density Lipoprotein 13 mg/dL (5-40)
[2024-11-15 10:00] VITALS: BP 121/72; PULSE 69; RESP 18; TEMP 36.6; O2SAT 99
[2024-11-15 10:37] VITALS: BP 121/72; PULSE 69
[2024-11-15] MEDS: Furosemide 40 MG/4 ML Vial IV (10:37)
[2024-11-15] MEDS: Metoprolol Tartrate 25 MG Tablet PO (10:37)
[2024-11-15] MEDS: Venlafaxine XR 150 MG Capsule PO (10:38)
[2024-11-15] MEDS: Iron Polysaccharide Complex 150 MG CAPSULE PO (10:38)
[2024-11-15] MEDS: APIXABAN 5 MG TABLET PO (10:38)
[2024-11-15] MEDS: Pantoprazole Sodium 40 MG Tablet PO (10:38)
[2024-11-15] MEDS: Spironolactone 25 MG Tablet PO (10:39)
--- NOTE | 2024-11-15 13:13 | DS.PCM_ITS ---
Providers Date of Admission: 11/14/24 Primary Care Physician: Dr. Hannah Ferrari MD Reason For Visit: FLUID OVERLOAD, HYPOKALEMIA Diagnosis Discharge Diagnosis (1) (HFpEF) heart failure with preserved ejection fraction: Status: Acute Code(s): I50.30 - Unspecified diastolic (congestive) heart failure Plan: On IV furosemide. On room air. Change back to PO. Echo ordered. Plan Hypokalemia * improved after replacement. Paroxysmal Atrial Fibrillation * EKG: Ventricularly paced * Continue metoprolol and apixaban. Chronic conditions: * Hypothyroidism-Continue Synthroid-Will check TSH in the a.m. * GERD-Continue PPI * Depression/anxiety-Continue home medications * History of secondary heart block with permanent nwtxpnrul-Jiexp-Gjljwdnd home metoprolol and other medications as above * History of hepatitis C and cirrhosis-Continue patient's spironolactone and adding IV Lasix DVT ppx: Continue Eliquis Patient improved much faster than anticipated. Medications at Discharge Home Medications omeprazole 40 mg capsule,delayed release 40 mg PO DAILY 06/17/16 levothyroxine 25 mcg tablet 25 mcg PO DAILY 07/28/19 baclofen 10 mg tablet 10 mg PO QHS 07/17/23 venlafaxine 150 mg capsule,extended release 24 hr 150 mg PO DAILY 01/21/24 furosemide 40 mg tablet 40 mg PO DAILY #90 tabs 01/31/24 metoprolol tartrate 25 mg tablet 25 mg PO BID #180 tabs 02/28/24 spironolactone 25 mg tablet 25 mg PO DAILY #90 tabs 03/06/24 apixaban 5 mg tablet (Eliquis) 5 mg PO BID #180 tabs 05/15/24 biotin 5 mg capsule 5 mg PO DAILY 11/14/24 pravastatin 40 mg tablet 40 mg PO DAILY 11/14/24 Weight / BMI Weight Weight: 73.7 kg Body Mass Index (BMI) 30.7 ABG / Lab / Microbiology Data 11/15/24 06:22 11/15/24 06:22 Laboratory: Laboratory Results - last 24 hr 11/14/24 13:30: WBC 6.5, RBC 3.69 L, Hgb 10.8 L, Hct 35.1 L, MCV 95.1, MCH 29.3, MCHC 30.8 L, RDW Std Deviation 54.4 H, RDW Coeff of Zacarias 15.7 H, Plt Count 158, M PV 12.9 H, Immature Gran % (Auto) 0.300, Neut % (Auto) 63.7, Lymph % (Auto) 21.2, [place] % (Auto) 11.9 H, Eos % (Auto) 2.3, Baso % (Auto) 0.6, Absolute Neuts (auto) 4.1, Absolute Lymphs (auto) 1.37, Nucleated RBC % 0.3, Sodium 138, P otassium 2.8 L, Chloride 97 L, Carbon Dioxide 33.0 H, Anion Gap 8, BUN 35 H, C reatinine 1.47 H, Estim Creat Clear Calc 33.42, Est GFR (MDRD) Af Amer 45 L, Est GFR (MDRD) Non-Af 37 L, BUN/Creatinine Ratio 23.8 H, Glucose 130 H, Calcium 9.6, Magnesium 1.8, Iron 31 L, TIBC 492 H, Iron Saturation 6.3 L, Ferritin 13, B- Natriuretic Peptide 896.4 H 11/14/24 22:00: Retic Count 2.69 H, Immature Retic Fraction 33.20 H, Retic Hgb Equivalent 24.1 L, Sodium 140, Potassium 3.9, Chloride 101, Carbon Dioxide 32.0, Anion Gap 7, BUN 36 H, Creatinine 1.35 H, Estim Creat Clear Calc 36.14, Est GFR (MDRD) Af Amer 50 L, Est GFR (MDRD) Non-Af 41 L, BUN/Creatinine Ratio 26.7 H, G lucose 133 H, Calcium 9.2 11/15/24 06:22: WBC 5.8, RBC 3.34 L, Hgb 9.6 L, Hct 31.5 L, MCV 94.3, MCH 28.7, MCHC 30.5 L, RDW Std Deviation 54.5 H, RDW Coeff of Zacarias 15.8 H, Plt Count 124 L, MPV 12.8 H, Immature Gran % (Auto) 0.300, Neut % (Auto) 63.1, Lymph % (Auto) 19.4, [place] % (Auto) 14.4 H, Eos % (Auto) 2.3, Baso % (Auto) 0.5, Absolute Neuts (auto) 3.6, Absolute Lymphs (auto) 1.12, Nucleated RBC % 0.5, Sodium 140, Potassium 3.6, Chloride 101, Carbon Dioxide 32.0, Anion Gap 7, BUN 37 H, C reatinine 1.34 H, Estim Creat Clear Calc 36.38, Est GFR (MDRD) Af Amer 50 L, Est GFR (MDRD) Non-Af 42 L, BUN/Creatinine Ratio 27.6 H, Glucose 117 H, Calcium 9.5, Magnesium 1.8, Total Bilirubin 1.60 H, AST 18, ALT 17, Alkaline Phosphatase 48, Total Protein 6.9, Albumin 3.1 L, Globulin 3.8, Albumin/Globulin Ratio 0.8 L, Triglycerides 65, Cholesterol 68, LDL Cholesterol 32, VLDL Cholesterol 13, HDL Cholesterol 23 L, TSH 2.850 Radiography Diagnostic Testing: Radiology Impression Chest X-Ray 11/14/24 13:50 IMPRESSION: Stable examination. Mild cardiomegaly. The lungs are clear. Electronically Signed: Juvenal Arango MD at 14:24 EST , Meaningful Use Info Ischemic Stroke Statin Dosing Therapy Reference: STATIN DOSE THERAPY REFERENCE: * Patients > 75 years receive moderate or high dose statin therapy. * Patients 75 years or YOUNGER should receive HIGH intensity statin dose unless contraindicated. You will be required to document reason for non-treatment if statin daily dose does not meet guidelines. HIGH DOSE STATIN THERAPY DAILY Atorvastatin > than or = to 40 mg Rosuvastatin > than or = to 20 mg Amlodipine + Atorvastatin > than or = to 2.5/40 mg Ezetimibe + Simvastatin 10/80 mg Simvastatin 80mg Discharge Plan Admission Admit Date/Time: 11/14/24 15:58 Attending Provider: Temo Kim Primary Care Provider: Hannah Ferrari Consulting Providers: Marija Aceves Discharge Orders/Prescriptions Prescriptions: No Action baclofen 10 mg tablet 10 mg PO QHS venlafaxine 150 mg capsule,extended release 24hr 150 mg PO DAILY omeprazole 40 MG capsule,delayed release(DR/EC) 40 mg PO DAILY levothyroxine 25 MCG tablet 25 mcg PO DAILY pravastatin 40 mg tablet 40 mg PO DAILY biotin 5 mg capsule 5 mg PO DAILY furosemide 40 mg tablet 40 mg PO DAILY Qty: 90 3RF metoprolol tartrate 25 mg tablet 25 mg PO BID Qty: 180 3RF spironolactone 25 mg tablet 25 mg PO DAILY Qty: 90 3RF Eliquis 5 mg tablet 5 mg PO BID Qty: 180 3RF Referrals / Follow Up: Hannah Ferrari MD [Primary Care Provider] -
[2024-11-15 15:05] VITALS: BP 110/70; PULSE 69; RESP 18; TEMP 36.2; O2SAT 99
--- NOTE | 2024-11-15 15:18 | DS.PCM_ITS ---
Providers Date of Admission: 11/14/24 Primary Care Physician: Dr. Hannah Ferrari MD Reason For Visit: FLUID OVERLOAD, HYPOKALEMIA Diagnosis Discharge Diagnosis (1) (HFpEF) heart failure with preserved ejection fraction: Status: Acute Code(s): I50.30 - Unspecified diastolic (congestive) heart failure Plan: On IV furosemide. On room air. Change back to PO. Echo shows an EF of 75%. No pulmonary vascular congestion on CXR. Plan Anemia: iron-deficient. Follow up as outpt. Start every other day dosing of ferrous sulfate. Hypokalemia * improved after replacement. Paroxysmal Atrial Fibrillation * EKG: Ventricularly paced * Continue metoprolol and apixaban. Chronic conditions: * Hypothyroidism-Continue Synthroid-Will check TSH in the a.m. * GERD-Continue PPI * Depression/anxiety-Continue home medications * History of secondary heart block with permanent vxoebjnhk-Krfgd-Pwszgvdz home metoprolol and other medications as above * History of hepatitis C and cirrhosis-Continue patient's spironolactone and adding IV Lasix Patient improved much faster than anticipated. Medications at Discharge Home Medications omeprazole 40 mg capsule,delayed release 40 mg PO DAILY 06/17/16 levothyroxine 25 mcg tablet 25 mcg PO DAILY 07/28/19 baclofen 10 mg tablet 10 mg PO QHS 07/17/23 venlafaxine 150 mg capsule,extended release 24 hr 150 mg PO DAILY 01/21/24 furosemide 40 mg tablet 40 mg PO DAILY #90 tabs 01/31/24 metoprolol tartrate 25 mg tablet 25 mg PO BID #180 tabs 02/28/24 spironolactone 25 mg tablet 25 mg PO DAILY #90 tabs 03/06/24 apixaban 5 mg tablet (Eliquis) 5 mg PO BID #180 tabs 05/15/24 biotin 5 mg capsule 5 mg PO DAILY 11/14/24 pravastatin 40 mg tablet 40 mg PO DAILY 11/14/24 ferrous sulfate 325 mg (65 mg iron) tablet 325 mg PO QODAY #30 tabs 11/15/24 Hospital Course Procedures 2-D Echocardiogram Summary of Care Provided Minutes Spent on Discharge: 32 Weight / BMI Weight Weight: 73.7 kg Body Mass Index (BMI) 30.7 ABG / Lab / Microbiology Data 11/15/24 06:22 11/15/24 06:22 Laboratory: Laboratory Results - last 24 hr 11/14/24 13:30: Iron 31 L, TIBC 492 H, Iron Saturation 6.3 L, Ferritin 13 11/14/24 22:00: Retic Count 2.69 H, Immature Retic Fraction 33.20 H, Retic Hgb Equivalent 24.1 L, Sodium 140, Potassium 3.9, Chloride 101, Carbon Dioxide 32.0, Anion Gap 7, BUN 36 H, Creatinine 1.35 H, Estim Creat Clear Calc 36.14, Est GFR (MDRD) Af Amer 50 L, Est GFR (MDRD) Non-Af 41 L, BUN/Creatinine Ratio 26.7 H, G lucose 133 H, Calcium 9.2 11/15/24 06:22: WBC 5.8, RBC 3.34 L, Hgb 9.6 L, Hct 31.5 L, MCV 94.3, MCH 28.7, MCHC 30.5 L, RDW Std Deviation 54.5 H, RDW Coeff of Zacarias 15.8 H, Plt Count 124 L, MPV 12.8 H, Immature Gran % (Auto) 0.300, Neut % (Auto) 63.1, Lymph % (Auto) 19.4, [place] % (Auto) 14.4 H, Eos % (Auto) 2.3, Baso % (Auto) 0.5, Absolute Neuts (auto) 3.6, Absolute Lymphs (auto) 1.12, Nucleated RBC % 0.5, Sodium 140, Potassium 3.6, Chloride 101, Carbon Dioxide 32.0, Anion Gap 7, BUN 37 H, C reatinine 1.34 H, Estim Creat Clear Calc 36.38, Est GFR (MDRD) Af Amer 50 L, Est GFR (MDRD) Non-Af 42 L, BUN/Creatinine Ratio 27.6 H, Glucose 117 H, Calcium 9.5, Magnesium 1.8, Total Bilirubin 1.60 H, AST 18, ALT 17, Alkaline Phosphatase 48, Total Protein 6.9, Albumin 3.1 L, Globulin 3.8, Albumin/Globulin Ratio 0.8 L, Triglycerides 65, Cholesterol 68, LDL Cholesterol 32, VLDL Cholesterol 13, HDL Cholesterol 23 L, TSH 2.850 Radiography Diagnostic Testing: Radiology Impression Echocardiogram 11/14/24 16:52 Interpretation Summary The estimated ejection fraction is 75 %. The left atrium is severely enlarged. The right atrium is moderately enlarged. Trivial mitral valve insufficiency. Ordering Physician: Marija Aceves Referring Physician: Gemma Higginbotham Performed By: Oanh Cardenas RCS D/C Instructions Discharge Diet: 2000 mg Sodium Diet and - (1.5 liters of fluid intake daily.) DC O2, CPAP, BIPAP Needs Home O2 Discharge instructions: No Meaningful Use Info Meaningful Use Meaningful Use Diagnoses (Choose all that apply): None applicable Ischemic Stroke Statin Dosing Therapy Reference: STATIN DOSE THERAPY REFERENCE: * Patients > 75 years receive moderate or high dose statin therapy. * Patients 75 years or YOUNGER should receive HIGH intensity statin dose unless contraindicated. You will be required to document reason for non-treatment if statin daily dose does not meet guidelines. HIGH DOSE STATIN THERAPY DAILY Atorvastatin > than or = to 40 mg Rosuvastatin > than or = to 20 mg Amlodipine + Atorvastatin > than or = to 2.5/40 mg Ezetimibe + Simvastatin 10/80 mg Simvastatin 80mg Discharge Plan Admission Admit Date/Time: 11/14/24 15:58 Primary Reason for Your Visit: Ankle edema. Attending Provider: Temo Kim Primary Care Provider: Hannah Ferrari Consulting Providers: Marija Aceves Instructions Additional Instructions / Restrictions: You have an increase swelling of your ankles. We gave you IV furosemide (Lasix) which improved. Recommend he going back on your normal dose of Lasix but also to monitor your fluid intake, check your weight daily and to limit your sodium intake. We check your weight, recommend that you keep a record of that so that you can see if you are taking on more weight which could be a sign of increased fluid overload. Discharge Orders/Prescriptions Prescriptions: New ferrous sulfate 325 mg (65 mg iron) tablet 325 mg PO QODAY Qty: 30 0RF Continued baclofen 10 mg tablet 10 mg PO QHS venlafaxine 150 mg capsule,extended release 24hr 150 mg PO DAILY omeprazole 40 MG capsule,delayed release(DR/EC) 40 mg PO DAILY levothyroxine 25 MCG tablet 25 mcg PO DAILY pravastatin 40 mg tablet 40 mg PO DAILY biotin 5 mg capsule 5 mg PO DAILY furosemide 40 mg tablet 40 mg PO DAILY Qty: 90 3RF metoprolol tartrate 25 mg tablet 25 mg PO BID Qty: 180 3RF spironolactone 25 mg tablet 25 mg PO DAILY Qty: 90 3RF Eliquis 5 mg tablet 5 mg PO BID Qty: 180 3RF Referrals / Follow Up: Hannah Ferrari MD [Primary Care Provider] - Within 2 Weeks Disposition Disposition (needs filled in before D/C Order can be placed): Home, Self Care Charges/Coding Visit Charges Inpatient E&M: 29278 Disch Hosp >30min
== END 2024-11-15 17:15 | disposition home or self-care (01) | DRG 291 ==
LOC: ED 16:03 → PCU 16:24
PROVIDERS: Admitting Provider Internal Medicine; Emergency Provider Emergency Medicine; PCP Internal Medicine; Referring Provider Emergency Medicine
DX: I11.0 Hypertensive heart disease with heart failure (principal); I50.31 Acute diastolic (congestive) heart failure; B19.20 Unspecified viral hepatitis C without hepatic coma; D50.9 Iron deficiency anemia, unspecified; E03.9 Hypothyroidism, unspecified; F17.210 Nicotine dependence, cigarettes, uncomplicated; K74.60 Unspecified cirrhosis of liver; F32.A Depression, unspecified; I48.0 Paroxysmal atrial fibrillation; K21.9 Gastro-esophageal reflux disease without esophagitis; E87.6 Hypokalemia; F41.9 Anxiety disorder, unspecified; Z95.0 Presence of cardiac pacemaker; Z79.899 Other long term (current) drug therapy
CPT/HCPCS: 36415; 71046; 80048; 80053; 80061; 82728; 83540; 83550; 83735; 83880; 84443; 85025; 85045; 93005; 93306; 97162; 97166; 99284; Q9957; C8929; J1940

== ENCOUNTER 2024-11-25 13:04 | Inpatient (IN) | payer MEDICARE, SELFPAY ==
[2024-11-25] VITALS (9 sets, daily range): BP systolic 115–149; BP diastolic 62–91; PULSE 64–78; RESP 16–20; TEMP 36.6–37.2; O2SAT 94–100; BMI 32.5; BMI 31.4
--- NOTE | 2024-11-25 14:16 | CT_ITS ---
EXAM: CT Abdomen and Pelvis With Intravenous Contrast CLINICAL INDICATION: TECHNIQUE: Axial computed tomography images of the abdomen and pelvis with intravenous contrast. This CT exam was performed using one or more of the following dose reduction techniques: automated exposure control, adjustment of the mA and/or kV according to patient size, and/or use of iterative reconstruction technique. COMPARISON: No relevant prior studies available. FINDINGS: LUNG BASES: Unremarkable. No mass. No consolidation. ABDOMEN: LIVER: Hepatic irregularity. GALLBLADDER AND BILE DUCTS: Cholelithiasis. No ductal dilation. PANCREAS: Unremarkable. No mass. No ductal dilation. SPLEEN: Unremarkable. No splenomegaly. ADRENALS: Unremarkable. No mass. KIDNEYS AND URETERS: Atrophic left kidney. Apparent striated enhancement of both kidneys could represent pyelonephritis. Clinical correlation is recommended. Left renal cyst. No hydronephrosis. STOMACH AND BOWEL: Scattered diverticula in the colon. There is mucosal thickening in the sigmoid colon with surrounding inflammation consistent with acute diverticulitis. No abscess. No obstruction. PELVIS: APPENDIX: No findings to suggest acute appendicitis. BLADDER: Unremarkable. No mass. REPRODUCTIVE: Unremarkable as visualized. ABDOMEN and PELVIS: INTRAPERITONEAL SPACE: Ascites. No free air. BONES/JOINTS: Anterior spondylolisthesis of L5 over S1 by 7 mm. SOFT TISSUES: Unremarkable. VASCULATURE: Scattered calcified atherosclerotic disease of aorta. No abdominal aortic aneurysm. LYMPH NODES: Unremarkable. No enlarged lymph nodes. CT/Abdomen/Pelvis W IV Cont ONLY IMPRESSION: 1. Atrophic left kidney. Apparent striated enhancement of both kidneys could represent pyelonephritis. Clinical correlation is recommended. 2. Scattered diverticula in the colon. There is mild mucosal thickening in th e sigmoid colon with surrounding inflammation could represent mild acute diverticulitis. No abscess. 3. Suggestion of cirrhosis. 4. Cholelithiasis. Reading Location[facility]
--- NOTE | 2024-11-25 14:16 | EKG12_ITS ---
Test Reason : Blood Pressure : */* mmHG Vent. Rate : 69 BPM Atrial Rate : 267 BPM P-R Int : * ms QRS Dur : 126 ms QT Int : 448 ms P-R-T Axes : * 178 12 degrees QTcB Int : 480 ms Ventricular-paced rhythm Abnormal ECG Confirmed by JERARDO HE, AGNIESZKA ([id number]), editor publications DE LAMAS ([id number]) on 11/27/2024 7:06:53 AM Referred By: Confirmed By: AGNIESZKA KURTZ MD
--- NOTE | 2024-11-25 14:24 | EDS_ITS ---
HPI History of Present Illness Chief Complaint: Edema Narrative Narrative: Chief complaint and HPI: 68-year-old female with past medical history of HFpEF, hepatitis C with liver cirrhosis, HTN, pacemaker with paroxysmal atrial flutter on Eliquis who presents for evaluation of fatigue and weakness. History taken by medical record as well as patient and her daughter. On chart review with patient's hospital admission/discharge summary, patient was just admitted to our hospital for bilateral lower extremity swelling. At that time she was diagnosed with FARIBA and CHF exacerbation. She was ultimately discharged home. Patient states since discharged home her lower extremity swelling has significantly improved however she has become more weak and fatigued. She is having difficulty ambulating around the house and performing ADLs. She denies any fever, chills, shortness of breath, chest pain, cough, URI symptoms, abdominal pain, diarrhea, dysuria. Patient states she is constipated and has not had a bowel movement in 5 days. She did have 1 episode of emesis today but thinks it was secondary to taking medicine on an empty stomach. She has not had anything to eat or drink yet today. Review of systems: See HPI Medications: As listed on the chart Allergies: As listed on the chart PFSH: Per chart Vital signs: As listed on the chart. Reviewed. Physical exam: Gen: A&O x3, NAD Head: Normocephalic, atraumatic Eyes: No sclera icterus, conjunctiva clear, PERRL, EOMI ENT: Dry mucous membranes Neck: Trachea midline, No JVD CV: RRR, no murmurs, no peripheral edema Resp: Lungs CTA BL, no w/r/c GI: Abd soft, protuberant abdomen but non-distended, non-tender, no r/r/g Musc: Moves all extremities, no deformity, generalized weakness Skin: Warm, dry Neuro: Alert, oriented, grossly intact, sensation intact Psych: Cooperative, appropriate mood and affect [facility] Medical History Intermittent atrial flutter Second degree AV block, Mobitz type II AV node dysfunction Alcohol abuse Nicotine dependence Hepatitis C Cirrhosis of liver CKD (chronic kidney disease) stage 3, GFR 30-59 ml/min Obesity (BMI 30.0-34.9) Dyslipidemia SHOEMAKER (dyspnea on exertion) Bradycardia Other specified disorders of bone density and structure, unspecified site Rheumatoid arthritis Fatigue Unspecified viral hepatitis C without hepatic coma Hypothyroidism Leg cramps Vitamin D deficiency GERD (gastroesophageal reflux disease) HLD (hyperlipidemia) HTN (hypertension) Left leg pain Depression Positive colorectal cancer screening using Cologuard test Home Medications ?Medication ?Instructions ?Recorded ?Last Taken ?Type omeprazole 40 mg capsule,delayed 40 mg PO DAILY acid r eflux 06/17/16 11/13/24 History release levothyroxine 25 mcg tablet 25 mcg PO DAILY thyroid 11/13/24 History baclofen 10 mg tablet 10 mg PO QHS pain 07/17/23 0 11/13/24 History venlafaxine 150 mg 150 mg PO DAILY mood 4 11/13/24 History capsule,extended release 24 hr metoprolol tartrate 25 mg tablet 25 mg PO BID heart/ b lood pressure 02/28/24 11/13/24 Rx #180 tabs spironolactone 25 mg tablet 25 mg PO DAILY water pill #90 tabs 03/06/24 11/13/24 Rx biotin 5 mg capsule 5 mg PO DAILY supplement 11/13/24 History pravastatin 40 mg tablet 40 mg PO DAILY cholesterol 0 11/14/24 11/13/24 History ferrous sulfate 325 mg (65 mg 325 mg PO QODAY iron #30 tabs 11/15/24 Unknown Rx iron) tablet apixaban 5 mg tablet (Eliquis) 5 mg PO BID blood thinn er #180 11/17/24 Unknown Rx TABLETS furosemide 40 mg tablet 40 mg PO QODAY water pill Unknown History Allergy/AdvReac Type Severity Reaction Status Date / Time No Known Allergies Allergy Verified 11/25/24 13:04 Family History Father Silent myocardial infarction CAD (coronary artery disease) Sister Cancer thyroid Thyroid disorder Mother , 73 Hypertension Grandfather Diabetes Grandmother Diabetes Surgical History Hx of cataract removal with insertion of prosthetic lens Hx of cardiac pacemaker (~11/23/23) S/P eye surgery S/P left breast biopsy S/P excision of lipoma History of ankle surgery S/P wrist surgery H/O lumpectomy H/O arthroscopic knee surgery H/O total hysterectomy Social History Smoking Status: Current some day smoker tobacco type: cigarettes alcohol intake: current alcohol intake frequency: 0-2 drinks per day Alcohol type: beer and hard liquor substance use type: former substance user EXAM Physical Exam Const Vital Signs: 11/25/24 13:04 11/25/24 14:15 11/25/24 15:04 Temperature 98.9 F Temperature Source Oral Pulse Rate 69 64 Respiratory Rate 18 16 Respiratory Effort Normal Respiratory Pattern Normal Blood Pressure 122/71 H 132/78 H Blood Pressure Mean 88 96 Pulse Ox 100 98 Oxygen Delivery Method Room Air Room Air 11/25/24 15:46 11/25/24 17:00 11/25/24 17:04 Temperature 98.5 F 98 F Temperature Source Oral Pulse Rate 69 78 69 Respiratory Rate 16 18 18 Respiratory Effort Respiratory Pattern Blood Pressure 149/66 H 126/91 H 136/91 H Blood Pressure Mean 93 102 106 Pulse Ox 94 98 99 Oxygen Delivery Method Room Air Room Air MDM MDM MDM Narrative Medical decision making narrative: 68-year-old female with past medical history of HFpEF, hepatitis C with liver cirrhosis, HTN, pacemaker with paroxysmal atrial flutter on Eliquis who presents for evaluation of fatigue and weakness. Was just admitted to the hospital and discharged for FARIBA and CHF exacerbation. She had an echocardiogram that showed an EF of 75%. Differential diagnosis includes but is not limited to dehydration, FARIBA, electrolyte abnormality, pneumonia, UTI, decompensated cirrhosis. Suspect less likely CHF exacerbation or ACS. Patient has dry mucous membranes therefore 500 cc NS bolus ordered. Will be judicial with fluids as patient was just admitted for CHF. Laboratory workup ordered including CT abdomen pelvis given patient's 5 days of constipation and nausea. Patient not having any abdominal pain. EKG and chest x-ray reviewed, see below. CBC without leukocytosis. Patient has stable anemia. INR 1.6. CMP shows worsening FARIBA with creatinine of 1.63. Mild transaminitis of her AST. Has had this in the past. Initial troponin 58. Delta decreased to 47. Patient not having chest pain. BNP elevated at 277 however this is downtrending from recent admission. UA negative for UTI. CT abdomen pelvis shows atrophic left kidney. Apparent striated enhancement of both kidneys could represent pyelonephritis. This does not clinically correlate. Scattered diverticuli in the colon. Mild mucosal thickening in the sigmoid colon with surrounding inflammation could represent mild acute diverticulitis. No abscess. Patient is not endorsing any abdominal pain therefore will not treat at this time. Patient positive for COVID-19 infection. Given patient's weakness and inability to perform ADLs as well as COVID-19 infection and FARIBA, patient will warrant admission for further hydration and PT/OT workup. Patient is not hypoxic and therefore does not require any Decadron for COVID-19 infection. Patient and family updated of all results and the plan it for admission. Hospitalist accepted admission. EKG: Interpreted by me/EM physician: EKG shows ventricular paced rhythm. No acute ischemic changes. Heart rate 69. Diagnostic: Interpreted by me/EM physician: Chest x-ray shows cardiomegaly with mild vascular congestion. No pneumonia or pneumothorax. Impression: 1. COVID-19 infection 2. FARIBA 3. Generalized weakness with inability to care for oneself 5. Chronic anemia Lab Data Labs: Laboratory Results - last 24 hr 11/25/24 11/25/24 11/25/24 14:32 14:39 16:20 WBC 6.2 RBC 3.65 L Hgb 10.3 L Hct 34.1 L MCV 93.4 MCH 28.2 MCHC 30.2 L RDW Std Deviation 56.4 H RDW Coeff of Zacarias 16.8 H Plt Count 113 L Immature Gran % (Auto) 0.300 Neut % (Auto) 75.7 H Lymph % (Auto) 11.3 L [place] % (Auto) 11.8 H Eos % (Auto) 0.6 Baso % (Auto) 0.3 Absolute Neuts (auto) 4.7 Absolute Lymphs (auto) 0.70 L Nucleated RBC % 1.1 PT 19.4 H INR 1.6 APTT 25.5 Sodium 134 L Potassium 4.2 Chloride 99 Carbon Dioxide 24.0 Anion Gap 12 BUN 35 H Creatinine 1.63 H Est GFR (MDRD) Af Amer 40 L Est GFR (MDRD) Non-Af 33 L BUN/Creatinine Ratio 21.5 H Glucose 112 H Calcium 9.4 Magnesium 1.8 Total Bilirubin 2.20 H AST 56 H ALT 23 Alkaline Phosphatase 57 Ammonia 24.0 Troponin I High Sens 58 H 47 B-Natriuretic Peptide 277.7 H Total Protein 7.7 Albumin 3.3 Globulin 4.4 H Albumin/Globulin Ratio 0.8 L Urine Color Yellow Urine Clarity Sl. Cloudy Urine pH 6.0 Ur Specific [place] 1.020 Urine Protein 30 H Urine Glucose (UA) Normal Urine Ketones 5 H Urine Occult Blood 10 H Urine Nitrite Negative Urine Bilirubin 1 H Urine Urobilinogen 8 H Ur Leukocyte Esterase 25 H Urine RBC 0 SEEN Urine WBC 0-5 SEEN Ur Squamous Epith Cells 5-10 SEEN Urine Bacteria 3+ Urine Mucus 0 SEEN Radiography Diagnostic Testing: Clinical Impression(s) from Imaging Studies Abdomen/Pelvis CT 11/25/24 14:16 IMPRESSION: 1. Atrophic left kidney. Apparent striated enhancement of both kidneys could represent pyelonephritis. Clinical correlation is recommended. 2. Scattered diverticula in the colon. There is mild mucosal thickening in the sigmoid colon with surrounding inflammation could represent mild acute diverticulitis. No abscess. 3. Suggestion of cirrhosis. 4. Cholelithiasis. Reading Location: [facility] Chest X-Ray 11/25/24 15:30 IMPRESSION: Cardiomegaly with mild congestion. Reading Location: [facility] Discharge Plan Disposition Disposition: Acute Care Hospital [facility] Discharge Date/Time: 11/25/24 18:59
[2024-11-25 14:45] LABS: Mucous, Urine 0 SEEN /hpf (<or=2+); Red Blood Cells-Urine 0 SEEN /hpf (0-5)
[2024-11-25 14:58] LABS: Color, Urine Yellow (Yellow); Glucose, Dipstick Normal (Normal); Ketone-Dipstick 5 mg/dl (Negative); Leukocyte Esterase-Dipstick 25 /ul (Negative); Nitrite-Dipstick Negative (Negative); Occult Blood-Urine 10 /ul (Negative); Protein-Dipstick 30 mg/dl (Negative); Urine Clarity Sl. Cloudy (Clear); Urine Urobilinogen 8 mg/dl (Normal)
[2024-11-25 14:59] LABS: Absolute Neutrophil Count 4.7 X10^3/uL (2.0-7.7); Basophil# 0.02 X10^3/uL; Basophil% 0.3 % (0-1); Eosinophil# 0.04 X10^3/uL; Eosinophils% 0.6 % (0-5); Hematocrit 34.1 % (37-47); Hemoglobin 10.3 g/dL (12.0-15.0); Lymphocyte % 11.3 % (19-41); Mean Corp Hgb Conc 30.2 g/dL (32-36); Mean Corpuscular Hgb 28.2 pg (27.0-32.0); Mean Corpuscular Volume 93.4 fL (81-99); Monocyte# 0.73 X10^3/uL; Monocyte% 11.8 % (0-10); NRBC Flagged by Analyzer 1.1 % (0-5); Neutrophil # 4.66 X10^3/uL (2.7-7.7); Neutrophil % 75.7 % (47-70); Platelet Count 113 K/mm3 (150-450); RBC Distribution Width CV 16.8 % (11.6-14.6); RBC Distribution Width SD 56.4 fl (35.1-43.9); Red Blood Count 3.65 M/mm3 (4.2-5.4)
[2024-11-25 15:01] LABS: Urine Bilirubin Dipstick 1 mg/dL (Negative)
[2024-11-25 15:02] LABS: International Normalized Ratio 1.6; Partial Thromboplast Time 25.5 Seconds (24.1-36.2); Prothrombin Time (Protime)PT. 19.4 SECONDS (11.7-14.9)
[2024-11-25 15:05] LABS: Bacteria 3+ /hpf (None Seen); Squamous Epithelial Cells - UA 5-10 SEEN /hpf (5-10); White Blood Cells 0-5 SEEN /hpf (0-5)
[2024-11-25 15:09] LABS: ALB/GLOB Ratio 0.8 RATIO (0.9-2.4); AST(SGOT) 56 U/L (15-37); Alanine Aminotransfer ALT/SGPT 23 U/L (13-56); Albumin, Serum 3.3 g/dL (3.2-5.0); Alkaline Phosphatase 57 U/L (45-117); Anion Gap 12 (5-15); BUN 35 mg/dL (7-18); BUN/Creat Ratio 21.5 RATIO (10-20); Calcium,Total 9.4 mg/dL (8.5-10.1); Chloride 99 mmol/L (98-107); Creatinine, Serum 1.63 mg/dL (0.55-1.02); EST Glomerular Filtration Rate 33 mL/min (>60); Est Glom Filt Rate - Afr Amer 40 mL/min (>60); Globulin 4.4 g/dL (2.2-4.2); Glucose 112 mg/dL (74-106); Magnesium 1.8 mg/dL (1.6-2.6); Potassium 4.2 mmol/L (3.5-5.1); Protein, Total 7.7 g/dL (6.4-8.2); Sodium Level 134 mmol/L (136-145); Troponin-I HS 58 pg/mL (3.0-54.0)
[2024-11-25] MEDS: 0.9% Normal Saline (500mL Bag) 500 ML 1000 ML IV (15:20)
--- NOTE | 2024-11-25 15:30 | RAD_ITS ---
EXAM: XR Chest, 1 View CLINICAL INDICATION: TECHNIQUE: Frontal view of the chest. COMPARISON: No relevant prior studies available. FINDINGS: LUNGS AND PLEURAL SPACES: See below. HEART: Cardiomegaly with mild congestion. MEDIASTINUM: Unremarkable. Normal mediastinal contour. BONES/JOINTS: Unremarkable. No acute fracture. TUBES, LINES AND DEVICES: Left-sided cardiac pacemaker. RAD/Chest 1 View (Portable) IMPRESSION: Cardiomegaly with mild congestion. Reading Location: [facility]
[2024-11-25 16:08] LABS: White Blood Count 6.2 K/mm3 (4.4-11.0)
[2024-11-25 16:13] LABS: BNP,B-Type NATRIURETIC PEPTIDE 277.7 pg/mL (0-100)
[2024-11-25 16:58] LABS: Troponin-I HS 47 pg/mL (3.0-54.0)
--- NOTE | 2024-11-25 17:49 | PCM.HP.STD ---
HPI - General General Date of Admission: 11/25/24 Date of Service: 11/25/24 Chief Complaint: Generalized weakness HPI Narrative JACOBY MARION, is a JACOBY MARION, is a 68-year-old female with a history of hypothyroidism, GERD, paroxysmal atrial fibrillation, secondary heart block with permanent pacemaker who presented to [facility] with 2 days of hallucinations, weakness, fatigue, and poor appetite ultimately prompting family to bring her in. Of note she was admitted here 11/14/2024 for exacerbation of heart failure and discharged 11/15/2024 in stable condition. In the ED patient had slight bump in her creatinine to 1.63 from 1.34. UA does not appear overtly infectious and hemoglobin 10.3 which is stable and no elevation white blood cell count. Patient's chest x-ray with no discrete infiltrate inquiring mild congestion, she had CT abdomen pelvis due to 5 days of constipation and nausea which correlated mild pyelonephritis or diverticulitis however symptoms not consistent with this. Patient was found to be COVID-positive. Given her generalized weakness with increased creatinine and failure to thrive hospitalist contacted for admission. Patient evaluated with family member at bedside. Patient has been weak with decreased appetite and some hallucinations over the past couple of days and also has had change in her urine appearance and they were concerned for UTI. Patient has a little bit of cough but no significant production and patient has not had any increasing shortness of breath per se or any increased swelling in her lower extremities. She denies any chest pain, does not necessarily have any burning on urination or urinary frequency. Also denies fevers at home. Patient does note constipation for about 5 days with a little bit of intermittent nausea but no overt abdominal pain [facility] Medical History Intermittent atrial flutter Second degree AV block, Mobitz type II AV node dysfunction Alcohol abuse Nicotine dependence Hepatitis C Cirrhosis of liver CKD (chronic kidney disease) stage 3, GFR 30-59 ml/min Obesity (BMI 30.0-34.9) Dyslipidemia SHOEMAKER (dyspnea on exertion) Bradycardia Other specified disorders of bone density and structure, unspecified site Rheumatoid arthritis Fatigue Unspecified viral hepatitis C without hepatic coma Hypothyroidism Leg cramps Vitamin D deficiency GERD (gastroesophageal reflux disease) HLD (hyperlipidemia) HTN (hypertension) Left leg pain Depression Positive colorectal cancer screening using Cologuard test Home Medications ?Medication ?Instructions ?Recorded ?Last Taken ?Type omeprazole 40 mg capsule,delayed 40 mg PO DAILY acid reflux 06/17/16 11/13/24 History release levothyroxine 25 mcg tablet 25 mcg PO DAILY thyroid 07/28/19 11/13/24 History baclofen 10 mg tablet 10 mg PO QHS pain 07/17/23 11/13/24 History venlafaxine 150 mg 150 mg PO DAILY mood 01/21/24 11/13/24 History capsule,extended release 24 hr metoprolol tartrate 25 mg tablet 25 mg PO BID heart/ blood pressure 02/28/24 11/13/24 Rx #180 tabs spironolactone 25 mg tablet 25 mg PO DAILY water pill #90 tabs 03/06/24 11/13/24 Rx biotin 5 mg capsule 5 mg PO DAILY supplement 11/14/24 11/13/24 History pravastatin 40 mg tablet 40 mg PO DAILY cholesterol 11/14/24 11/13/24 History ferrous sulfate 325 mg (65 mg 325 mg PO QODAY #30 tabs 11/15/24 Unknown Rx iron) tablet apixaban 5 mg tablet (Eliquis) 5 mg PO BID #180 TABLETS 11/17/24 Unknown Rx furosemide 40 mg tablet 40 mg PO QODAY 11/25/24 Unknown History Allergy/AdvReac Type Severity Reaction Status Date / Time No Known Allergies Allergy Verified 11/25/24 13:04 Family History Father Silent myocardial infarction CAD (coronary artery disease) Sister Cancer thyroid Thyroid disorder Mother , 73 Hypertension Grandfather Diabetes Grandmother Diabetes Surgical History Hx of cataract removal with insertion of prosthetic lens Hx of cardiac pacemaker (~11/23/23) S/P eye surgery S/P left breast biopsy S/P excision of lipoma History of ankle surgery S/P wrist surgery H/O lumpectomy H/O arthroscopic knee surgery H/O total hysterectomy Social History Smoking Status: Current some day smoker tobacco type: cigarettes alcohol intake: current alcohol intake frequency: 0-2 drinks per day Alcohol type: beer and hard liquor substance use type: former substance user ROS ROS Narrative General: Denies fever/chills HENT: Denies stuffy nose, denies sore throat EYES: Denies changes in vision Resp: Slight cough but not particularly productive, does not report any significant increased work of breathing Cardiac: Denies chest pain GI: Denies abdominal pain, has been constipated for 5 days, intermittently little nauseous : Feels her urine has changed and color Extremity: Denies swelling MSK: Denies weakness Neuro: Denies any numbness/tingling Heme: Denies any bleeding or bruising Skin: Denies any specific rashes Psychiatric: No complaints voiced Vital Signs Vital Signs Vital Signs: 11/25/24 13:04 11/25/24 14:15 11/25/24 15:04 Temperature 98.9 F Temperature Source Oral Pulse Rate 69 64 Respiratory Rate 18 16 Respiratory Effort Normal Respiratory Pattern Normal Blood Pressure 122/71 H 132/78 H Blood Pressure Mean 88 96 Pulse Ox 100 98 Oxygen Delivery Method Room Air Room Air 11/25/24 15:46 11/25/24 17:00 11/25/24 17:04 Temperature 98.5 F 98 F Temperature Source Oral Pulse Rate 69 78 69 Respiratory Rate 16 18 18 Respiratory Effort Respiratory Pattern Blood Pressure 149/66 H 126/91 H 136/91 H Blood Pressure Mean 93 102 106 Pulse Ox 94 98 99 Oxygen Delivery Method Room Air Room Air Weight Weight: 78.2 kg Body Mass Index (BMI) 32.5 Physical Exam Narrative General: Tired but wakes up and answers questions HEENT: Atraumatic, normocephalic Eyes: Anicteric, normal conjunctiva, extraocular movements grossly intact Neck: Supple Respiratory: Somewhat diminished at the bases, normal respiratory effort Cardiovascular: Regular rate GI: Soft, nontender, nondistended Extremities: No edema Musculoskeletal: Moving all extremities Neuro: No overt focal neurological deficits Skin: Some scattered erythema lower extremities but does not appear to be cellulitic Psych: Cooperative Results Lab / Micro Data 11/25/24 14:32 11/25/24 14:32 Labs: Laboratory Results - last 24 hr 11/25/24 14:32: WBC 6.2, RBC 3.65 L, Hgb 10.3 L, Hct 34.1 L, MCV 93.4, MCH 28.2, MCHC 30.2 L, RDW Std Deviation 56.4 H, RDW Coeff of Zacarias 16.8 H, Plt Count 113 L, Immature Gran % (Auto) 0.300, Neut % (Auto) 75.7 H, Lymph % (Auto) 11.3 L, [place] % (Auto) 11.8 H, Eos % (Auto) 0.6, Baso % (Auto) 0.3, Absolute Neuts (auto) 4.7, Absolute Lymphs (auto) 0.70 L, Nucleated RBC % 1.1, PT 19.4 H, INR 1.6, APTT 25.5, Sodium 134 L, Potassium 4.2, Chloride 99, Carbon Dioxide 24.0, Anion Gap 12, BUN 35 H, Creatinine 1.63 H, Est GFR (MDRD) Af Amer 40 L, Est GFR (MDRD) Non-Af 33 L, BUN/Creatinine Ratio 21.5 H, Glucose 112 H, Calcium 9.4, Magnesium 1.8, Total Bilirubin 2.20 H, AST 56 H, ALT 23, Alkaline Phosphatase 57, Ammonia 24.0, Troponin I High Sens 58 H, B-Natriuretic Peptide 277.7 H, Total Protein 7.7, Albumin 3.3, Globulin 4.4 H, Albumin/Globulin Ratio 0.8 L 11/25/24 14:39: Urine Color Yellow, Urine Clarity Sl. Cloudy, Urine pH 6.0, Ur Specific [place] 1.020, Urine Protein 30 H, Urine Glucose (UA) Normal, Urine Ketones 5 H, Urine Occult Blood 10 H, Urine Nitrite Negative, Urine Bilirubin 1 H, Urine Urobilinogen 8 H, Ur Leukocyte Esterase 25 H, Urine RBC 0 SEEN, Urine WBC 0-5 SEEN, Ur Squamous Epith Cells 5-10 SEEN, Urine Bacteria 3+, Urine Mucus 0 SEEN 11/25/24 16:20: Troponin I High Sens 47 Micro: Microbiology 11/25/24 14:39 Mucosa - Nose SARS-CoV-2, Influenza & RSV (PCR) - Final SARS-CoV-2 (COVID 19) Imaging Radiology Impression Abdomen/Pelvis CT 11/25/24 14:16 IMPRESSION: 1. Atrophic left kidney. Apparent striated enhancement of both kidneys could represent pyelonephritis. Clinical correlation is recommended. 2. Scattered diverticula in the colon. There is mild mucosal thickening in the sigmoid colon with surrounding inflammation could represent mild acute diverticulitis. No abscess. 3. Suggestion of cirrhosis. 4. Cholelithiasis. Reading Location: [facility] Chest X-Ray 11/25/24 15:30 IMPRESSION: Cardiomegaly with mild congestion. Reading Location: [facility] Assessment & Plan Assessment/Plan (1) Weakness: PLAN: Plan #Generalized weakness -Suspect due to patient's poor p.o. intake and COVID however CT scan queried early pyelo and patient with some hallucinations and vague complaints that concern patient and daughter for possible UTI -Initial UA with squamous cells and seems to be poor catch -Will repeat UA and urine culture ordered -Will start empiric antibiotics and if repeat UA benign can likely DC antibiotics unless culture positive -PT/OT -CM c/s #Increase in creatinine -Currently 1.63 with recent creatinine of 1.34 -Patient does report poor p.o. intake and appears slightly volume depleted -BMP down to 277 from 896 when she was admitted for heart failure exacerbation -Will hold off on fluids will also hold diuretics for now, repeat creatinine in the a.m. # Constipation -Will schedule bowel regimen # Chronic heart failure with preserved ejection fraction -Not in exacerbation -Given patient seems volume depleted will hold off on home diuretics but will need to monitor closely -Daily weights, I's and O's #COVID 19 infection -Patient 99% on room air and has no increased work of breathing or specific respiratory complaints -Do not think patient needs targeted COVID therapy -Supportive care #Depression/anxiety -Continue home medications #GERD -Continue PPI #Hypothyroidism -Continue Synthroid #Paroxysmal Atrial Fibrillation -Rate control: Metoprolol -Anticoagulation: Eliquis # History of secondary heart block with permanent pacemaker -Noted -Continue home metoprolol and other medications as above #DVT ppx: Dang Aceves MD Charges/Coding Visit Charges Inpatient E&M: 05691 Init Hosp L2
--- NOTE | 2024-11-25 18:08 | CM.ED ---
Social Work Patient had case management assessment completed on 11/14/24. SW confirmed no changes since last assessment. Met with sisters as patient was out of room at time of visit. Both sisters deny need for short term SNF stay or home health care after discharge. Sisters maintain they are able to help patient with all personal care needs. Sister did request that a HPOA and DNR are completed during this stay. Ignacia Jackson, HAND SCRAPER, TECHNICAL MANAGER
[2024-11-25] MEDS: Ceftriaxone 1 GM/50 ML BAG IV (19:53)
[2024-11-25] MEDS: APIXABAN 5 MG TABLET PO (19:54)
[2024-11-25] MEDS: Senna/Docusate Sodium 1 Tablet 2 TABLET PO (19:54)
[2024-11-25] MEDS: Metoprolol Tartrate 25 MG Tablet PO (20:08)
[2024-11-26] VITALS (8 sets, daily range): BP systolic 112–134; BP diastolic 52–81; PULSE 68–72; RESP 16–22; TEMP 36.3–37.1; O2SAT 98–100; BMI 31.4
[2024-11-26] MEDS: MELATONIN 3 MG TABLET PO (00:08)
[2024-11-26] MEDS: Acetaminophen 325 MG Tablet 650 MG PO (00:08)
[2024-11-26] MEDS: Ondansetron 4 MG/2 ML Vial IV (03:38)
[2024-11-26] MEDS: 0.9% Saline Lock 10 ML Syringe IV ×2 (03:39→18:38)
[2024-11-26] MEDS: Levothyroxine 25 MCG TABLET PO (05:34)
[2024-11-26 05:39] LABS: Basophil# 0.03 X10^3/uL; Basophil% 0.6 % (0-1); Eosinophil# 0.01 X10^3/uL; Eosinophils% 0.2 % (0-5); Hematocrit 32.5 % (37-47); Hemoglobin 9.8 g/dL (12.0-15.0); Lymphocyte % 18.9 % (19-41); Mean Corp Hgb Conc 30.2 g/dL (32-36); Mean Corpuscular Hgb 28.2 pg (27.0-32.0); Mean Corpuscular Volume 93.4 fL (81-99); Mean Platelet Vol. 13.5 fl (6.2-12.0); Monocyte# 0.78 X10^3/uL; Monocyte% 16.4 % (0-10); NRBC Flagged by Analyzer 0.6 % (0-5); Neutrophil # 3.01 X10^3/uL (2.7-7.7); Neutrophil % 63.5 % (47-70); Platelet Count 105 K/mm3 (150-450); RBC Distribution Width CV 16.6 % (11.6-14.6); RBC Distribution Width SD 56.4 fl (35.1-43.9); Red Blood Count 3.48 M/mm3 (4.2-5.4); White Blood Count 4.8 K/mm3 (4.4-11.0)
[2024-11-26 05:58] LABS: Anion Gap 14 (5-15); BUN 38 mg/dL (7-18); Calcium,Total 9.2 mg/dL (8.5-10.1); Chloride 97 mmol/L (98-107); Creatinine, Serum 1.73 mg/dL (0.55-1.02); EST Glomerular Filtration Rate 31 mL/min (>60); Est Glom Filt Rate - Afr Amer 38 mL/min (>60); Estimated Creatinine Clearance 28.51 ml/min; Glucose 121 mg/dL (74-106); Potassium 3.3 mmol/L (3.5-5.1); Sodium Level 132 mmol/L (136-145)
[2024-11-26] MEDS: Venlafaxine XR 150 MG Capsule PO (08:48)
[2024-11-26] MEDS: Pantoprazole Sodium 40 MG Tablet PO (08:48)
[2024-11-26] MEDS: Metoprolol Tartrate 25 MG Tablet PO ×2 (08:48→22:20)
[2024-11-26] MEDS: Potassium Chloride Oral Tablet 20 MEQ 40 MEQ PO (08:48)
[2024-11-26] MEDS: Senna/Docusate Sodium 1 Tablet 2 TABLET PO ×2 (08:48→22:20)
[2024-11-26] MEDS: APIXABAN 5 MG TABLET PO ×2 (08:49→22:20)
--- NOTE | 2024-11-26 15:00 | CASEMGMT ---
RN CM Readmission Note Previous Admission: 11/14/24-11/15/24 Diagnosis: fluid overload, hypokalemia DC Disposition: Home Current Admission: Admitted 11/25/24 Current Diagnosis: Increased Creatinine, generalized weakness, COVID 19 SW into pt room, pt resting and stated she did not feel good. CHAPARRO MCGEE to check back with pt tomorrow. Per notes, pt dc'd home with family assistance. Pt swelling had decreased. From DC F/U TC, it was noted pt didn't have a PCP appt until February. Per H&P, pt was taking meds as ordered. Pt lives alone with help of sisters. RN EVERARDO to follow, therapy is ordered. DC Plan: TBD, per ER SW note last evening plan for pt to go home.
--- NOTE | 2024-11-26 15:19 | CASEMGMT ---
Social Work- SW attempted to meet with pt to complete HCPOA. Pt was sleeping when SW entered the room; it took SW multiple attempts to awaken pt. SW introduced self and role. Pt declines to complete HCPOA, reporting that she is tired and does not feel well. Pt asked SW to come back later. SW remains available to follow. TANGELA Ochoa
[2024-11-26] MEDS: BENZOCAINE/MENTHOL 1 LOZENGE MUCOUS MEM (16:10)
--- NOTE | 2024-11-26 17:20 | PN_ITS ---
Subjective Subjective Patient seen and examined. She complained of feeling weak. She denied having any pain and denied any nausea vomiting fever or chills. Review of systems otherwise negative. She has remained hemodynamically stable. Objective Data Objective Data Vital Signs: Vital Signs Temp Pulse Resp BP Pulse Ox O2 Del Method 98.0 F 70 18 125/63 H 98 Room Air 11/26/24 13:35 11/26/24 13:39 11/26/24 13:35 11/26/24 13:35 11/26/24 13:35 11/26/24 13:39 Oxygen Delivery Method Room Air Weight: 166 lb 3.657 oz Body Mass Index (BMI) 31.4 Intake & Output: Intake and Output for Last 24 Hours 11/24/24 11/25/24 11/26/24 23:59 23:59 23:59 Intake Total 550 / 800 400 / 400 Output Total 100 / 100 Balance 550 / 800 300 / 300 Lab / Micro Data 11/26/24 05:15 11/26/24 05:15 Labs: Laboratory Results - last 24 hr 11/26/24 05:15: WBC 4.8, RBC 3.48 L, Hgb 9.8 L, Hct 32.5 L, MCV 93.4, MCH 28.2, MCHC 30.2 L, RDW Std Deviation 56.4 H, RDW Coeff of Zacarias 16.6 H, Plt Count 105 L, MPV 13.5 H, Immature Gran % (Auto) 0.400, Neut % (Auto) 63.5, Lymph % (Auto) 18.9 L, [place] % (Auto) 16.4 H, Eos % (Auto) 0.2, Baso % (Auto) 0.6, Absolute Neuts (auto) 3.0, Absolute Lymphs (auto) 0.90, Nucleated RBC % 0.6, Sodium 132 L , Potassium 3.3 L, Chloride 97 L, Carbon Dioxide 22.0, Anion Gap 14, BUN 38 H, C reatinine 1.73 H, Estim Creat Clear Calc 28.51, Est GFR (MDRD) Af Amer 38 L, Est GFR (MDRD) Non-Af 31 L, BUN/Creatinine Ratio 22.0 H, Glucose 121 H, Calcium 9.2 Micro: Microbiology 11/25/24 14:39 Urine, Catheterized Urine Culture - Preliminary Culture exhibits no growth. 11/25/24 14:39 Mucosa - Nose SARS-CoV-2, Influenza & RSV (PCR) - Final SARS-CoV-2 (COVID 19) Physical Exam Const alert, oriented x3, no apparent distress and well nourished General Appearance: cooperative and well developed HEENT normocephalic, head/scalp atraumatic, moist oral mucous membranes and oropharynx normal Eyes PERRL and EOMs intact bilaterally Neck no lymphadenopathy, supple and no JVD Lymph Lymphatic: no lymphadenopathy noted Resp normal respiratory effort, normal air movement and clear to auscultation bilaterally Cardio regular rate, regular rhythm, S1 normal heart sound, S2 normal heart sound and no murmurs GI normal to inspection, nondistended, normoactive bowel sounds, soft to palpation, non-tender and non-distended Extremity normal capillary refill, no clubbing, cyanosis or edema and no calf tenderness General Extremity: no tenderness to palpation of joints or extremities Skin General Skin Exam: no breakdown Neuro CN's II-XII intact bilaterally, no focal motor deficits and no sensory deficits noted Motor Exam: strength 5/5 throughout and general weakness Psych thought process normal, cooperative and affect normal Appearance: appropriate Assessment & Plan Assessment/Plan (1) Weakness: (2) FARIBA (acute kidney injury): (3) Hypokalemia: PLAN: Plan #Debility and weakness in the setting of COVID * Patient is asymptomatic from COVID standpoint. She however feels weak. * Currently on IV antibiotics due to concerns for UTI as urinalysis does show evidence of UTI. However initial urinalysis thought to be due to poor culture repeat urinalysis done. * PT OT on board. Fall precautions. #UTI: Urinalysis showed 3+ bacteria. On IV ceftriaxone. Urine cultures pending. #Heart failure preserved ejection fraction: Not in exacerbation. Lasix held due to volume depletion. #Hypokalemia: Potassium is 3.3. Replace today). #Elevated creatinine * Creatinine was 1.60 on admission. She has not been eating and drinking well. Diuretics held. * Creatinine today is 1.73. Will hydrate very gently with IV fluids and trend creatinine. * #COVID-19 infection: Asymptomatic from COVID standpoint. She is on room air. Hold off on any treatment for COVID. #GERD: PPI #Elevated liver enzymes * Total bilirubin was 2.2 on admission. It was previously 1.6 on 15 November 2024. Back in December 2023 was 2.5. She does have a history of hepatitis C. * AST and ALT are within normal limits. Will monitor. #Thrombocytopenia: Platelets are 105. She does have chronic thrombocytopenia. Will monitor. #Hypothyroidism: On Synthroid #Paroxysmal A-fib: On metoprolol and Eliquis #History of heart block s/p pacemaker: Stable DVT prophylaxis: Eliquis Charges/Coding Visit Charges Inpatient E&M: 08743 Subs Hosp L2
[2024-11-26] MEDS: 0.9% Normal Saline (1000mL) 1,000 ML 100 ML IV (22:07)
[2024-11-26] MEDS: Ceftriaxone 1 GM/50 ML BAG IV (22:08)
[2024-11-26] MEDS: Pravastatin 40 MG Tablet PO (22:20)
[2024-11-27 04:10] VITALS: BP 113/56; PULSE 69; RESP 16; TEMP 36.3; O2SAT 99
[2024-11-27 06:00] VITALS: BMI 31.8
[2024-11-27] MEDS: Levothyroxine 25 MCG TABLET PO (06:42)
[2024-11-27 09:11] LABS: Absolute Lymphocyte Count 1.43 X10^3/uL (0.83-4.51); Absolute Neutrophil Count 4.7 X10^3/uL (2.0-7.7); Basophil# 0.03 X10^3/uL; Basophil% 0.4 % (0-1); Eosinophil# 0.01 X10^3/uL; Eosinophils% 0.1 % (0-5); Hematocrit 33.1 % (37-47); Hemoglobin 9.9 g/dL (12.0-15.0); Lymphocyte # 1.43 X10^3/ul (0.83-4.51); Lymphocyte % 19.7 % (19-41); Mean Corp Hgb Conc 29.9 g/dL (32-36); Mean Corpuscular Volume 93.8 fL (81-99); Mean Platelet Vol. 13.5 fl (6.2-12.0); Monocyte% 15.1 % (0-10); NRBC Flagged by Analyzer 0.3 % (0-5); Neutrophil # 4.65 X10^3/uL (2.7-7.7); Platelet Count 136 K/mm3 (150-450); RBC Distribution Width CV 16.8 % (11.6-14.6); RBC Distribution Width SD 56.9 fl (35.1-43.9); Red Blood Count 3.53 M/mm3 (4.2-5.4); White Blood Count 7.3 K/mm3 (4.4-11.0)
[2024-11-27 09:30] VITALS: BP 109/52; PULSE 75; RESP 18; TEMP 36.6; O2SAT 97
[2024-11-27 09:35] VITALS: PULSE 75
[2024-11-27] MEDS: Pantoprazole Sodium 40 MG Tablet PO (09:35)
[2024-11-27] MEDS: APIXABAN 5 MG TABLET PO ×2 (09:35→21:35)
[2024-11-27] MEDS: Metoprolol Tartrate 25 MG Tablet PO ×2 (09:35→21:35)
[2024-11-27] MEDS: Venlafaxine XR 150 MG Capsule PO (09:36)
[2024-11-27 10:35] LABS: ALB/GLOB Ratio 0.8 RATIO (0.9-2.4); AST(SGOT) 54 U/L (15-37); Alanine Aminotransfer ALT/SGPT 34 U/L (13-56); Albumin, Serum 3.4 g/dL (3.2-5.0); Alkaline Phosphatase 59 U/L (45-117); Anion Gap 13 (5-15); BUN 47 mg/dL (7-18); BUN/Creat Ratio 18.3 RATIO (10-20); Calcium,Total 9.4 mg/dL (8.5-10.1); Chloride 96 mmol/L (98-107); Creatinine, Serum 2.57 mg/dL (0.55-1.02); EST Glomerular Filtration Rate 20 mL/min (>60); Est Glom Filt Rate - Afr Amer 24 mL/min (>60); Estimated Creatinine Clearance 19.32 ml/min; Globulin 4.1 g/dL (2.2-4.2); Glucose 98 mg/dL (74-106); Potassium 4.4 mmol/L (3.5-5.1); Protein, Total 7.5 g/dL (6.4-8.2); Sodium Level 131 mmol/L (136-145)
--- NOTE | 2024-11-27 12:57 | PN_ITS ---
Subjective Subjective Patient seen and examined. She complained of diarrhea. However according to her nurse patient has been complaining of constipation and so got some laxatives and that resulted in her having 2 large bowel movements. Patient denies any fever or chills, denies any nausea or vomiting. Review of systems otherwise negative. Creatinine is up to 2.57 today. Objective Data Objective Data Vital Signs: Vital Signs Temp Pulse Resp BP Pulse Ox O2 Del Method 98 F 75 18 109/52 L 97 Room Air 11/27/24 09:30 11/27/24 09:35 11/27/24 09:30 11/27/24 09:30 11/27/24 09:30 11/27/24 09:30 Oxygen Delivery Method Room Air Weight: 168 lb 6.931 oz Body Mass Index (BMI) 31.8 Intake & Output: Intake and Output for Last 24 Hours 11/25/24 11/26/24 11/27/24 23:59 23:59 23:59 Intake Total 550 / 800 450 / 450 1000 / 1000 Output Total 250 / 250 Balance 550 / 800 200 / 200 1000 / 1000 Lab / Micro Data 11/27/24 08:40 11/27/24 08:40 Labs: Laboratory Results - last 24 hr 11/27/24 08:40: WBC 7.3, RBC 3.53 L, Hgb 9.9 L, Hct 33.1 L, MCV 93.8, MCH 28.0, MCHC 29.9 L, RDW Std Deviation 56.9 H, RDW Coeff of Zacarias 16.8 H, Plt Count 136 L, MPV 13.5 H, Immature Gran % (Auto) 0.700, Neut % (Auto) 64.0, Lymph % (Auto) 19.7, [place] % (Auto) 15.1 H, Eos % (Auto) 0.1, Baso % (Auto) 0.4, Absolute Neuts (auto) 4.7, Absolute Lymphs (auto) 1.43, Nucleated RBC % 0.3, Sodium 131 L, Potassium 4.4, Chloride 96 L, Carbon Dioxide 22.0, Anion Gap 13, BUN 47 H, C reatinine 2.57 H, Estim Creat Clear Calc 19.32, Est GFR (MDRD) Af Amer 24 L, Est GFR (MDRD) Non-Af 20 L, BUN/Creatinine Ratio 18.3, Glucose 98, Calcium 9.4, T otal Bilirubin 1.70 H, AST 54 H, ALT 34, Alkaline Phosphatase 59, Total Protein 7.5, Albumin 3.4, Globulin 4.1, Albumin/Globulin Ratio 0.8 L Micro: Microbiology 11/25/24 14:39 Urine, Catheterized Urine Culture - Final Culture exhibits no growth. 11/25/24 14:39 Mucosa - Nose SARS-CoV-2, Influenza & RSV (PCR) - Final SARS-CoV-2 (COVID 19) Physical Exam Const alert, oriented x3, no apparent distress and well nourished General Appearance: cooperative and well developed HEENT normocephalic, head/scalp atraumatic, moist oral mucous membranes and oropharynx normal Eyes PERRL and EOMs intact bilaterally Neck no lymphadenopathy, supple and no JVD Lymph Lymphatic: no lymphadenopathy noted Resp normal respiratory effort, normal air movement and clear to auscultation bilaterally Cardio regular rate, regular rhythm, S1 normal heart sound, S2 normal heart sound and no murmurs GI normal to inspection, nondistended, normoactive bowel sounds, soft to palpation, non-tender and non-distended Extremity normal capillary refill, no clubbing, cyanosis or edema and no calf tenderness General Extremity: no tenderness to palpation of joints or extremities Skin General Skin Exam: no breakdown Neuro CN's II-XII intact bilaterally, no focal motor deficits and no sensory deficits noted Motor Exam: strength 5/5 throughout and general weakness Psych thought process normal, cooperative and affect normal Appearance: appropriate Assessment & Plan Assessment/Plan (1) Weakness: (2) FARIBA (acute kidney injury): (3) Hypokalemia: PLAN: Plan #Debility and weakness in the setting of COVID * Patient is asymptomatic from COVID standpoint. She however feels weak. * Currently on IV antibiotics due to concerns for UTI as urinalysis does show evidence of UTI. However initial urinalysis thought to be due to poor culture repeat urinalysis done. * PT OT on board. Fall precautions. #UTI: * Urinalysis showed 3+ bacteria. On IV ceftriaxone. Urine culture showed no growth. * CT of the abdomen and pelvis did show some perinephric stranding concerning for pyelonephritis. Will therefore continue on IV ceftriaxone. # #Heart failure preserved ejection fraction: Not in exacerbation. Lasix held due to volume depletion. #Hypokalemia: Potassium is 3.3. Replace today). # FARIBA on CKD * Creatinine was 1.63 on admission. Baseline creatinine seems to be around 0.8. * Creatinine up to 2.57. Will insert Yu catheter to monitor urine output. Hydrate with IV fluids and trend creatinine. * Consult nephrology if creatinine continues to trend upwards. * Check FEUrea * * #COVID-19 infection: Asymptomatic from COVID standpoint. She is on room air. Hold off on any treatment for COVID. #GERD: PPI #Elevated liver enzymes * Bilirubin is trended down to 1.7. AST is mildly high at 54 but ALT and ALP are within normal limits. As stated she has a history of hepatitis C. I will monitor. * #Thrombocytopenia: Platelets are up to 136 today. Was 105 yesterday. She does have chronic thrombocytopenia. Will monitor. #Hypothyroidism: On Synthroid #Paroxysmal A-fib: On metoprolol and Eliquis #History of heart block s/p pacemaker: Stable DVT prophylaxis: Eliquis Charges/Coding Visit Charges Inpatient E&M: 39516 Subs Hosp L2
[2024-11-27 14:31] VITALS: BP 96/44; PULSE 69; RESP 18; TEMP 36.6; O2SAT 99
[2024-11-27] MEDS: 0.9% Normal Saline (1000mL) 1,000 ML 150 ML IV ×2 (14:34→23:41)
--- NOTE | 2024-11-27 15:18 | CASEMGMT ---
Addendum entered by Christine Mullen 11/27/24 15:31: CHAPARRO MCGEE did check with pt to see if she still would like to do HCPOA papers but tomorrow, not today. Updated SW. Original Note: CHAPARRO MCGEE into pt room, pt lying in bed in no distress on RA. Pt reports that she was taking her medications as ordered at home. Noted in RN [facility] TC that pt did not have PCP appt until February, pt states her sister got this moved up. Discussed how therapy is going with pt and if she has been able to be up in the chair. Pt states that she has been up in the chair today. Pt denies any homegoing needs. Discussed HHC with patient and she states that her dogs would not allow this. Pt states she wants to return home with her sister's assistance. Pt does not have a walker but states her sister Juanita is working on this. Provided pt with a verbal local in network list of DME providers should pt need DME, pt states she has no preference. She gave permission to speak with Juanita. TC to Juanita, she states she was going to buy a walker for pt. She is aware that this RN EVERARDO could get one through pt insurance. She states she would not get one then. CHAPARRO MCGEE to obtain through [employer] as pt did not have preference. She states that she goes to pt home daily, brings meals and helps with pt with her animals. She does not think that pt is at the level of needing HHC either. She states pt is getting a walk in shower put in currently. She states there is multiple family members who are able to assist pt. DC Plan: Home with family assistance, FWW
[2024-11-27 20:13] VITALS: BP 126/59; PULSE 66; RESP 18; TEMP 36.9; O2SAT 100
[2024-11-27] MEDS: Ceftriaxone 1 GM/50 ML BAG IV (21:32)
[2024-11-27 21:35] VITALS: PULSE 66
[2024-11-27] MEDS: Pravastatin 40 MG Tablet PO (21:35)
[2024-11-27 22:53] LABS: Urea Nitrogen, Urine 478 mg/dL (NO RANGE EST.)
[2024-11-27] MEDS: Ondansetron 4 MG/2 ML Vial IV (23:46)
[2024-11-28 02:00] VITALS: BP 130/61; PULSE 62; RESP 16; TEMP 36.7; O2SAT 99
[2024-11-28] MEDS: Levothyroxine 25 MCG TABLET PO (04:56)
[2024-11-28 05:20] VITALS: BMI 32.6
[2024-11-28 07:16] LABS: Absolute Lymphocyte Count 1.24 X10^3/uL (0.83-4.51); Absolute Neutrophil Count 5.1 X10^3/uL (2.0-7.7); Basophil# 0.04 X10^3/uL; Basophil% 0.5 % (0-1); Eosinophil# 0.02 X10^3/uL; Eosinophils% 0.3 % (0-5); Hemoglobin 9.8 g/dL (12.0-15.0); Lymphocyte # 1.24 X10^3/ul (0.83-4.51); Lymphocyte % 16.4 % (19-41); Mean Corp Hgb Conc 30.6 g/dL (32-36); Mean Corpuscular Hgb 28.1 pg (27.0-32.0); Mean Corpuscular Volume 91.7 fL (81-99); Mean Platelet Vol. 13.5 fl (6.2-12.0); Monocyte# 1.06 X10^3/uL; Monocyte% 14.1 % (0-10); NRBC Flagged by Analyzer 0.5 % (0-5); Neutrophil # 5.13 X10^3/uL (2.7-7.7); Platelet Count 144 K/mm3 (150-450); RBC Distribution Width CV 16.6 % (11.6-14.6); RBC Distribution Width SD 56.1 fl (35.1-43.9); Red Blood Count 3.49 M/mm3 (4.2-5.4); White Blood Count 7.5 K/mm3 (4.4-11.0)
[2024-11-28 07:43] LABS: Anion Gap 12 (5-15); BUN 51 mg/dL (7-18); BUN/Creat Ratio 21.9 RATIO (10-20); Calcium,Total 9.1 mg/dL (8.5-10.1); Chloride 101 mmol/L (98-107); Creatinine, Serum 2.33 mg/dL (0.55-1.02); EST Glomerular Filtration Rate 22 mL/min (>60); Est Glom Filt Rate - Afr Amer 27 mL/min (>60); Glucose 94 mg/dL (74-106); Sodium Level 134 mmol/L (136-145)
[2024-11-28 09:51] VITALS: BP 124/75; PULSE 69; RESP 18; TEMP 36.6; O2SAT 99
[2024-11-28 10:00] VITALS: PULSE 69
[2024-11-28] MEDS: Venlafaxine XR 150 MG Capsule PO (10:00)
[2024-11-28] MEDS: APIXABAN 5 MG TABLET PO ×2 (10:00→22:39)
[2024-11-28] MEDS: Metoprolol Tartrate 25 MG Tablet PO ×2 (10:00→22:39)
[2024-11-28] MEDS: Pantoprazole Sodium 40 MG Tablet PO (10:01)
--- NOTE | 2024-11-28 13:14 | PN_ITS ---
Subjective Subjective Patient seen and examined. Her daughter was by her bedside. She had no active complaints. Review of systems otherwise negative. Her creatinine has trended down slightly to 2.33 today. She has remained hemodynamically stable. Objective Data Objective Data Vital Signs: Vital Signs Temp Pulse Resp BP Pulse Ox O2 Del Method 97.8 F 69 18 124/75 H 99 Room Air 11/28/24 09:51 11/28/24 10:00 11/28/24 09:51 11/28/24 09:51 11/28/24 09:51 11/28/24 10:05 Oxygen Delivery Method Room Air Weight: 172 lb 13.478 oz Body Mass Index (BMI) 32.6 Intake & Output: Intake and Output for Last 24 Hours 11/26/24 11/27/24 11/28/24 23:59 23:59 23:59 Intake Total 450 / 450 2049 / 2049 1000 / 1000 Output Total 250 / 250 100 / 100 Balance 200 / 200 2049 / 2049 900 / 900 Lab / Micro Data 11/28/24 07:01 11/28/24 07:01 Labs: Laboratory Results - last 24 hr 11/27/24 17:20: Urine Creatinine 198.00, Urine Urea Nitrogen 478 11/28/24 07:01: WBC 7.5, RBC 3.49 L, Hgb 9.8 L, Hct 32.0 L, MCV 91.7, MCH 28.1, MCHC 30.6 L, RDW Std Deviation 56.1 H, RDW Coeff of Zacarias 16.6 H, Plt Count 144 L, MPV 13.5 H, Immature Gran % (Auto) 0.700, Neut % (Auto) 68.0, Lymph % (Auto) 16.4 L, [place] % (Auto) 14.1 H, Eos % (Auto) 0.3, Baso % (Auto) 0.5, Absolute Neuts (auto) 5.1, Absolute Lymphs (auto) 1.24, Nucleated RBC % 0.5, Sodium 134 L , Potassium 4.0, Chloride 101, Carbon Dioxide 21.0, Anion Gap 12, BUN 51 H, C reatinine 2.33 H, Estim Creat Clear Calc 21.60, Est GFR (MDRD) Af Amer 27 L, Est GFR (MDRD) Non-Af 22 L, BUN/Creatinine Ratio 21.9 H, Glucose 94, Calcium 9.1 Micro: Microbiology 11/25/24 14:39 Urine, Catheterized Urine Culture - Final Culture exhibits no growth. 11/25/24 14:39 Mucosa - Nose SARS-CoV-2, Influenza & RSV (PCR) - Final SARS-CoV-2 (COVID 19) Physical Exam Const alert, oriented x3, no apparent distress and well nourished General Appearance: cooperative and well developed HEENT normocephalic, head/scalp atraumatic, moist oral mucous membranes and oropharynx normal Eyes PERRL and EOMs intact bilaterally Neck no lymphadenopathy, supple and no JVD Lymph Lymphatic: no lymphadenopathy noted Resp normal respiratory effort, normal air movement and clear to auscultation bilaterally Cardio regular rate, regular rhythm, S1 normal heart sound, S2 normal heart sound and no murmurs GI normal to inspection, nondistended, normoactive bowel sounds, soft to palpation, non-tender and non-distended Extremity normal capillary refill, no clubbing, cyanosis or edema and no calf tenderness General Extremity: no tenderness to palpation of joints or extremities Skin General Skin Exam: no breakdown Neuro CN's II-XII intact bilaterally, no focal motor deficits and no sensory deficits noted Motor Exam: strength 5/5 throughout and general weakness Psych thought process normal, cooperative and affect normal Appearance: appropriate Assessment & Plan Assessment/Plan (1) Weakness: (2) FARIBA (acute kidney injury): (3) Hypokalemia: PLAN: Plan #Debility and weakness in the setting of COVID * Patient is asymptomatic from COVID standpoint. She however feels weak. * Currently on IV antibiotics due to concerns for UTI as urinalysis does show evidence of UTI. However initial urinalysis thought to be due to poor culture repeat urinalysis done. * PT OT on board. Fall precautions. #UTI: * Urinalysis showed 3+ bacteria. On IV ceftriaxone. Urine culture showed no growth. * CT of the abdomen and pelvis did show some perinephric stranding concerning for pyelonephritis. Will therefore continue on IV ceftriaxone. # #Heart failure preserved ejection fraction: Not in exacerbation. Lasix held due to volume depletion. #Hypokalemia: Potassium is 3.3. Replace today). # FARIBA on CKD * Creatinine was 1.63 on admission. Baseline creatinine seems to be around 0.8. * Creatinine slightly down to 2.33 from 2.57 yesterday. * Continue hydration with IV fluids and monitor creatinine. Will hold off on nephrology consult for now as creatinine is improving. * * * #COVID-19 infection: Asymptomatic from COVID standpoint. She is on room air. Hold off on any treatment for COVID. #GERD: PPI #Elevated liver enzymes * Improving. As stated she has a history of hepatitis C. I will monitor. * #Thrombocytopenia: Platelets have trended up slightly to 144 today. She does have chronic thrombocytopenia. Will monitor. #Hypothyroidism: On Synthroid #Paroxysmal A-fib: On metoprolol and Eliquis #History of heart block s/p pacemaker: Stable DVT prophylaxis: Eliquis Disposition: Anticipate discharge likely tomorrow. Charges/Coding Visit Charges Inpatient E&M: 86278 Subs Hosp L2
[2024-11-28] MEDS: 0.9% Normal Saline (1000mL) 1,000 ML 125 ML IV ×2 (13:31→22:26)
[2024-11-28] MEDS: Sodium Chloride 0.65% 1 SPRAY SPRAY.BTL NASAL (13:31)
[2024-11-28 14:30] VITALS: BP 114/57; PULSE 70; RESP 18; TEMP 36.4; O2SAT 99
[2024-11-28] MEDS: Acetaminophen 325 MG Tablet 650 MG PO (18:29)
[2024-11-28] MEDS: Ceftriaxone 1 GM/50 ML BAG IV (22:26)
[2024-11-28 22:29] VITALS: BP 118/63; PULSE 68; RESP 16; TEMP 36.2; O2SAT 97
[2024-11-28 22:39] VITALS: BP 118/63; PULSE 68
[2024-11-28] MEDS: Pravastatin 40 MG Tablet PO (22:47)
[2024-11-29] VITALS (7 sets, daily range): BP systolic 112–135; BP diastolic 62–73; PULSE 68–69; RESP 18; TEMP 36.5–37.1; O2SAT 96–98; BMI 32.6
[2024-11-29] MEDS: Levothyroxine 25 MCG TABLET PO (05:30)
[2024-11-29 07:25] LABS: Absolute Lymphocyte Count 1.21 X10^3/uL (0.83-4.51); Basophil# 0.03 X10^3/uL; Basophil% 0.5 % (0-1); Eosinophil# 0.04 X10^3/uL; Eosinophils% 0.7 % (0-5); Hematocrit 32.4 % (37-47); Hemoglobin 9.6 g/dL (12.0-15.0); Lymphocyte # 1.21 X10^3/ul (0.83-4.51); Lymphocyte % 19.8 % (19-41); Mean Corp Hgb Conc 29.6 g/dL (32-36); Mean Corpuscular Hgb 27.4 pg (27.0-32.0); Mean Corpuscular Volume 92.3 fL (81-99); Mean Platelet Vol. 13.6 fl (6.2-12.0); Monocyte# 0.81 X10^3/uL; Monocyte% 13.3 % (0-10); NRBC Flagged by Analyzer 0.3 % (0-5); Neutrophil # 3.97 X10^3/uL (2.7-7.7); Platelet Count 161 K/mm3 (150-450); RBC Distribution Width CV 16.7 % (11.6-14.6); RBC Distribution Width SD 56.2 fl (35.1-43.9); Red Blood Count 3.51 M/mm3 (4.2-5.4); White Blood Count 6.1 K/mm3 (4.4-11.0)
[2024-11-29 07:43] LABS: Anion Gap 12 (5-15); BUN 55 mg/dL (7-18); BUN/Creat Ratio 24.4 RATIO (10-20); Chloride 101 mmol/L (98-107); Creatinine, Serum 2.25 mg/dL (0.55-1.02); EST Glomerular Filtration Rate 23 mL/min (>60); Est Glom Filt Rate - Afr Amer 28 mL/min (>60); Estimated Creatinine Clearance 22.37 ml/min; Glucose 85 mg/dL (74-106); Potassium 4.2 mmol/L (3.5-5.1); Sodium Level 133 mmol/L (136-145)
[2024-11-29] MEDS: Metoprolol Tartrate 25 MG Tablet PO ×2 (10:46→22:58)
[2024-11-29] MEDS: Pantoprazole Sodium 40 MG Tablet PO (10:47)
[2024-11-29] MEDS: APIXABAN 5 MG TABLET PO ×2 (10:47→22:58)
[2024-11-29] MEDS: Venlafaxine XR 150 MG Capsule PO (10:47)
[2024-11-29] MEDS: Sodium Chloride 0.65% 1 SPRAY SPRAY.BTL NASAL (10:50)
--- NOTE | 2024-11-29 12:06 | CASEMGMT ---
Social Work- Physician notified that she believes pt may need SNF at discharge. SW placed orders for OT per physician request. MARCELLE remains available to follow for any discharge needs. TANGELA Ochoa
--- NOTE | 2024-11-29 13:41 | PN_ITS ---
Subjective Subjective Patient seen and examined. She felt quite weak today. She denied any fever, chills, cough, chest pain, palpitations, dizziness, nausea, vomiting or any other symptoms. Review of systems is otherwise negative. Objective Data Objective Data Vital Signs: Vital Signs Temp Pulse Resp BP Pulse Ox O2 Del Method 97.7 F L 69 18 133/73 H 98 Room Air 11/29/24 10:00 11/29/24 10:46 11/29/24 10:00 11/29/24 10:00 11/29/24 10:00 11/29/24 10:00 Oxygen Delivery Method Room Air Weight: 172 lb 13.478 oz Body Mass Index (BMI) 32.6 Intake & Output: Intake and Output for Last 24 Hours 11/27/24 11/28/24 11/29/24 23:59 23:59 23:59 Intake Total 2049 / 2049 1450 / 1450 Output Total 100 / 100 300 / 300 Balance 2049 1950 / 1950 1150 / 1150 Lab / Micro Data 11/29/24 06:57 11/29/24 06:57 Labs: Laboratory Results - last 24 hr 11/29/24 06:57: WBC 6.1, RBC 3.51 L, Hgb 9.6 L, Hct 32.4 L, MCV 92.3, MCH 27.4, MCHC 29.6 L, RDW Std Deviation 56.2 H, RDW Coeff of Zacarias 16.7 H, Plt Count 161, M PV 13.6 H, Immature Gran % (Auto) 0.700, Neut % (Auto) 65.0, Lymph % (Auto) 19.8, [place] % (Auto) 13.3 H, Eos % (Auto) 0.7, Baso % (Auto) 0.5, Absolute Neuts (auto) 4.0, Absolute Lymphs (auto) 1.21, Nucleated RBC % 0.3, Sodium 133 L, Potassium 4.2, Chloride 101, Carbon Dioxide 20.0 L, Anion Gap 12, BUN 55 H, C reatinine 2.25 H, Estim Creat Clear Calc 22.37, Est GFR (MDRD) Af Amer 28 L, Est GFR (MDRD) Non-Af 23 L, BUN/Creatinine Ratio 24.4 H, Glucose 85, Calcium 9.0 Micro: Microbiology 11/25/24 14:39 Urine, Catheterized Urine Culture - Final Culture exhibits no growth. 11/25/24 14:39 Mucosa - Nose SARS-CoV-2, Influenza & RSV (PCR) - Final SARS-CoV-2 (COVID 19) Physical Exam Const alert, oriented x3, no apparent distress and well nourished General Appearance: cooperative and well developed HEENT normocephalic, head/scalp atraumatic, moist oral mucous membranes and oropharynx normal Eyes PERRL and EOMs intact bilaterally Neck no lymphadenopathy, supple and no JVD Lymph Lymphatic: no lymphadenopathy noted Resp normal respiratory effort, normal air movement and clear to auscultation bilaterally Cardio regular rate, regular rhythm, S1 normal heart sound, S2 normal heart sound and no murmurs GI normal to inspection, nondistended, normoactive bowel sounds, soft to palpation, non-tender and non-distended Extremity normal capillary refill, no clubbing, cyanosis or edema and no calf tenderness General Extremity: no tenderness to palpation of joints or extremities Skin General Skin Exam: no breakdown Neuro CN's II-XII intact bilaterally, no focal motor deficits and no sensory deficits noted Motor Exam: strength 5/5 throughout and general weakness Psych thought process normal, cooperative and affect normal Appearance: appropriate Assessment & Plan Assessment/Plan (1) Weakness: (2) FARIBA (acute kidney injury): (3) Hypokalemia: PLAN: Plan #Debility and weakness in the setting of COVID * Patient is asymptomatic from COVID standpoint. She however feels weak. * Currently on IV antibiotics due to concerns for UTI as urinalysis does show evidence of UTI. However initial urinalysis thought to be due to poor culture repeat urinalysis done. * PT OT on board. Fall precautions. #UTI: * Urinalysis showed 3+ bacteria. On IV ceftriaxone. Urine culture showed no growth. * CT of the abdomen and pelvis did show some perinephric stranding concerning for pyelonephritis. Will therefore continue on IV ceftriaxone. Complete a 5 day course. # #Heart failure preserved ejection fraction: Not in exacerbation. Lasix held due to volume depletion. #Hypokalemia: Potassium is 3.3. Replace today). # FARIBA on CKD * Creatinine was 1.63 on admission. Baseline creatinine seems to be around 0.8. * Cr down to 2.27 toay from 2.33. It is gradually trending downwards. * Will continue to monitor. * encourage oral hydration * #COVID-19 infection: Asymptomatic from COVID standpoint. She is on room air. Hold off on any treatment for COVID. #GERD: PPI #Elevated liver enzymes * Improving. As stated she has a history of hepatitis C. I will monitor. * #Thrombocytopenia: platelets are 161 today. She does have chronic thrombocytopenia. Will monitor. #Hypothyroidism: On Synthroid #Paroxysmal A-fib: On metoprolol and Eliquis #History of heart block s/p pacemaker: Stable DVT prophylaxis: Eliquis Disposition: Anticipate discharge likely tomorrow. Charges/Coding Visit Charges Inpatient E&M: 62359 Subs Hosp L2
[2024-11-29] MEDS: Lactated Ringers 1,000 ML 125 ML IV (18:13)
[2024-11-29] MEDS: Pravastatin 40 MG Tablet PO (22:58)
[2024-11-29] MEDS: Ceftriaxone 1 GM/50 ML BAG IV (22:58)
[2024-11-30] VITALS (13 sets, daily range): BP systolic 106–147; BP diastolic 64–84; PULSE 65–69; RESP 18–20; TEMP 36.5–37.1; O2SAT 86–100; BMI 32.6
[2024-11-30] MEDS: Lactated Ringers 1,000 ML 125 ML IV (02:46)
[2024-11-30] MEDS: Levothyroxine 25 MCG TABLET PO (06:57)
[2024-11-30 07:43] LABS: Absolute Lymphocyte Count 1.01 X10^3/uL (0.83-4.51); Absolute Neutrophil Count 5.1 X10^3/uL (2.0-7.7); Basophil# 0.02 X10^3/uL; Basophil% 0.3 % (0-1); Eosinophil# 0.16 X10^3/uL; Eosinophils% 2.2 % (0-5); Hematocrit 32.9 % (37-47); Hemoglobin 9.7 g/dL (12.0-15.0); Lymphocyte # 1.01 X10^3/ul (0.83-4.51); Lymphocyte % 14.1 % (19-41); Mean Corp Hgb Conc 29.5 g/dL (32-36); Mean Corpuscular Hgb 27.2 pg (27.0-32.0); Mean Corpuscular Volume 92.2 fL (81-99); Mean Platelet Vol. 13.1 fl (6.2-12.0); Monocyte# 0.83 X10^3/uL; Monocyte% 11.6 % (0-10); NRBC Flagged by Analyzer 0.7 % (0-5); Neutrophil # 5.06 X10^3/uL (2.7-7.7); Platelet Count 172 K/mm3 (150-450); RBC Distribution Width CV 16.5 % (11.6-14.6); Red Blood Count 3.57 M/mm3 (4.2-5.4); White Blood Count 7.1 K/mm3 (4.4-11.0)
[2024-11-30 08:42] LABS: Anion Gap 12 (5-15); BUN 60 mg/dL (7-18); BUN/Creat Ratio 23.3 RATIO (10-20); Calcium,Total 9.1 mg/dL (8.5-10.1); Chloride 100 mmol/L (98-107); Creatinine, Serum 2.57 mg/dL (0.55-1.02); EST Glomerular Filtration Rate 20 mL/min (>60); Est Glom Filt Rate - Afr Amer 24 mL/min (>60); Estimated Creatinine Clearance 19.59 ml/min; Glucose 121 mg/dL (74-106); Potassium 4.6 mmol/L (3.5-5.1); Sodium Level 130 mmol/L (136-145)
[2024-11-30 09:43] LABS: AST(SGOT) 91 U/L (15-37); Alanine Aminotransfer ALT/SGPT 77 U/L (13-56); Albumin, Serum 3.1 g/dL (3.2-5.0); Alkaline Phosphatase 67 U/L (45-117); Bilirubin, Direct 1.03 mg/dL (0.00-0.30); Protein, Total 7.1 g/dL (6.4-8.2)
[2024-11-30] MEDS: Venlafaxine XR 150 MG Capsule PO (09:48)
[2024-11-30] MEDS: Pantoprazole Sodium 40 MG Tablet PO (09:48)
[2024-11-30] MEDS: APIXABAN 5 MG TABLET PO ×2 (09:48→21:50)
[2024-11-30] MEDS: Metoprolol Tartrate 25 MG Tablet PO ×2 (09:48→21:50)
--- NOTE | 2024-11-30 10:32 | PN_ITS ---
Subjective Subjective Patient seen and examined. Patient was drowsy but arousable. She had no complaints. Per headache she really had about 100 cc out of the Yu yesterday. Her creatinine has been up to 2.57 and a BUN is up to 60. She has been hydrated with IV fluids but she has diminished oral intake. Objective Data Objective Data Vital Signs: Vital Signs Temp Pulse Resp BP Pulse Ox O2 Del Method 98.4 F 65 18 127/64 H 98 Room Air 11/30/24 09:50 11/30/24 09:50 11/30/24 10:00 11/30/24 09:50 11/30/24 09:50 11/30/24 10:00 Oxygen Delivery Method Room Air Weight: 173 lb 1.006 oz Body Mass Index (BMI) 32.6 Intake & Output: Intake and Output for Last 24 Hours 11/28/24 11/29/24 11/30/24 23:59 23:59 23:59 Intake Total 0 / 0 1900 / 1900 1100 / 1100 Output Total 100 / 100 570 / 570 100 / 100 Balance 1950 / 1950 1330 / 1330 1000 / 1000 Lab / Micro Data 11/30/24 07:14 11/30/24 07:14 Labs: Laboratory Results - last 24 hr 11/30/24 07:14: WBC 7.1, RBC 3.57 L, Hgb 9.7 L, Hct 32.9 L, MCV 92.2, MCH 27.2, MCHC 29.5 L, RDW Std Deviation 56.0 H, RDW Coeff of Zacarias 16.5 H, Plt Count 172, M PV 13.1 H, Immature Gran % (Auto) 0.800, Neut % (Auto) 71.0 H, Lymph % (Auto) 14.1 L, [place] % (Auto) 11.6 H, Eos % (Auto) 2.2, Baso % (Auto) 0.3, Absolute Neuts (auto) 5.1, Absolute Lymphs (auto) 1.01, Nucleated RBC % 0.7, Sodium 130 L , Potassium 4.6, Chloride 100, Carbon Dioxide 18.0 L, Anion Gap 12, BUN 60 H, C reatinine 2.57 H, Estim Creat Clear Calc 19.59, Est GFR (MDRD) Af Amer 24 L, Est GFR (MDRD) Non-Af 20 L, BUN/Creatinine Ratio 23.3 H, Glucose 121 H, Calcium 9.1, Total Bilirubin 1.70 H, Direct Bilirubin 1.03 H, AST 91 H, ALT 77 H, Alkaline Phosphatase 67, Total Protein 7.1, Albumin 3.1 L, Globulin 4.0 11/30/24 09:02: Ammonia 15.0 Micro: Microbiology 11/25/24 14:39 Urine, Catheterized Urine Culture - Final Culture exhibits no growth. 11/25/24 14:39 Mucosa - Nose SARS-CoV-2, Influenza & RSV (PCR) - Final SARS-CoV-2 (COVID 19) Physical Exam Const alert Constitutional Narrative: lethargic but arousable General Appearance: cooperative HEENT normocephalic, head/scalp atraumatic, moist oral mucous membranes and oropharynx normal Eyes PERRL and EOMs intact bilaterally Neck no lymphadenopathy, supple and no JVD Lymph Lymphatic: no lymphadenopathy noted Resp normal respiratory effort, normal air movement and clear to auscultation bilaterally Cardio regular rate, regular rhythm, S1 normal heart sound, S2 normal heart sound and no murmurs GI normal to inspection, nondistended, normoactive bowel sounds, soft to palpation, non-tender and non-distended Extremity normal capillary refill, no clubbing, cyanosis or edema and no calf tenderness General Extremity: no tenderness to palpation of joints or extremities Skin General Skin Exam: no breakdown Neuro CN's II-XII intact bilaterally, no focal motor deficits and no sensory deficits noted Motor Exam: strength 5/5 throughout and general weakness Psych thought process normal, cooperative and affect normal Appearance: appropriate Assessment & Plan Assessment/Plan (1) Weakness: (2) FARIBA (acute kidney injury): (3) Hypokalemia: PLAN: Plan #Debility and weakness in the setting of COVID * Patient is asymptomatic from COVID standpoint. She however continues to feel weak. * Currently on IV antibiotics due to concerns for UTI as urinalysis does show evidence of UTI. However initial urinalysis thought to be due to poor culture repeat urinalysis done. * PT OT on board. Fall precautions. #UTI: * Urinalysis showed 3+ bacteria. On IV ceftriaxone. Urine culture showed no growth. * CT of the abdomen and pelvis did show some perinephric stranding concerning for pyelonephritis. Will therefore continue on IV ceftriaxone. Complete a 5 day course. #Heart failure preserved ejection fraction: Not in exacerbation. Lasix held due to volume depletion. #Hyponatremia: * Sodium is 130. Dropped from 133 yesterday. * Bicarb is also 18. * This may likely be due to fluid retention from the impaired kidney function. * #Hypokalemia: Potassium is 3.3. Replace today # FARIBA on CKD * Creatinine was 1.63 on admission. Baseline creatinine seems to be around 0.8. * Cr is up to 2.57 today. Yu catheter inserted to monitor urine output yesterday. * Did have CT of the abdomen done as above which showed atrophic left kidney and no hydronephrosis and left renal cyst with a prominent striated enhancement of both kidneys which could represent pyelonephritis. * Been hydrated with IV fluid normal saline at 125 cc/h. Nephrology consulted. BUN is up to 50. Hold all nephrotoxic meds. * check FeUrea * #COVID-19 infection: Asymptomatic from COVID standpoint. She is on room air. Hold off on any treatment for COVID. #GERD: PPI #Elevated liver enzymes * Improving. As stated she has a history of hepatitis C. I will monitor. * Ammonia level is only 15. #Thrombocytopenia: has chronic thrombocytopenia. Platelets are up to 172 today. Will montior #Hypothyroidism: On Synthroid #Paroxysmal A-fib: On metoprolol and Eliquis #History of heart block s/p pacemaker: Stable DVT prophylaxis: Eliquis Disposition: not medically stable for dc due to worsening kidney function Charges/Coding Visit Charges Inpatient E&M: 49296 Subs Hosp L3
[2024-11-30] MEDS: 0.9% Normal Saline (1000mL) 1,000 ML 150 ML IV ×2 (12:00→21:48)
[2024-11-30 14:52] LABS: Urea Nitrogen, Urine 751 mg/dL (NO RANGE EST.)
[2024-11-30] MEDS: Senna/Docusate Sodium 1 Tablet 2 TABLET PO (21:50)
[2024-11-30] MEDS: Pravastatin 40 MG Tablet PO (21:50)
[2024-11-30] MEDS: Acetaminophen 325 MG Tablet 650 MG PO (23:44)
[2024-11-30] MEDS: MELATONIN 3 MG TABLET PO (23:45)
[2024-12-01] VITALS (9 sets, daily range): BP systolic 107–130; BP diastolic 44–74; PULSE 68–69; RESP 18–19; TEMP 36.2–37; O2SAT 98–100; BMI 34.8
[2024-12-01] MEDS: Levothyroxine 25 MCG TABLET PO (06:20)
[2024-12-01 07:00] LABS: Absolute Lymphocyte Count 1.13 X10^3/uL (0.83-4.51); Absolute Neutrophil Count 5.6 X10^3/uL (2.0-7.7); Basophil# 0.02 X10^3/uL; Basophil% 0.3 % (0-1); Eosinophil# 0.02 X10^3/uL; Eosinophils% 0.3 % (0-5); Hematocrit 31.3 % (37-47); Hemoglobin 9.5 g/dL (12.0-15.0); Lymphocyte # 1.13 X10^3/ul (0.83-4.51); Lymphocyte % 14.3 % (19-41); Mean Corp Hgb Conc 30.4 g/dL (32-36); Mean Corpuscular Hgb 27.7 pg (27.0-32.0); Mean Corpuscular Volume 91.3 fL (81-99); Mean Platelet Vol. 13.2 fl (6.2-12.0); Monocyte# 1.02 X10^3/uL; Monocyte% 12.9 % (0-10); NRBC Flagged by Analyzer 0.5 % (0-5); Neutrophil # 5.64 X10^3/uL (2.7-7.7); Neutrophil % 71.4 % (47-70); Platelet Count 152 K/mm3 (150-450); RBC Distribution Width CV 16.6 % (11.6-14.6); RBC Distribution Width SD 55.2 fl (35.1-43.9); Red Blood Count 3.43 M/mm3 (4.2-5.4); White Blood Count 7.9 K/mm3 (4.4-11.0)
[2024-12-01 07:31] LABS: Anion Gap 12 (5-15); BUN 60 mg/dL (7-18); Calcium,Total 9.4 mg/dL (8.5-10.1); Chloride 103 mmol/L (98-107); EST Glomerular Filtration Rate 21 mL/min (>60); Est Glom Filt Rate - Afr Amer 26 mL/min (>60); Estimated Creatinine Clearance 21.71 ml/min; Glucose 95 mg/dL (74-106); Potassium 4.4 mmol/L (3.5-5.1); Sodium Level 134 mmol/L (136-145)
--- NOTE | 2024-12-01 08:49 | PCM.PN.HOSP ---
Reason for Visit Reason for Visit: Diagnoses Hypokalemia (11/25/24) Acute kidney failure, unspecified (11/25/24) Weakness (11/25/24) Subjective Subjective Denies complaints, placed on oxygen yesterday for hypoxia. Objective Data Objective Data Vital Signs: Vital Signs Temp Pulse Resp BP Pulse Ox O2 Del Method O2 Flow Rate 37.0 C 68 18 128/74 H 98 Nasal Cannula 2 12/01/24 03:28 12/01/24 03:28 12/01/24 03:33 12/01/24 03:28 12/01/24 03:28 12/01/24 03:33 12/01/24 03:33 Oxygen Flow Rate (L/min) 2 Oxygen Delivery Method Nasal Cannula Weight: 83.7 kg Body Mass Index (BMI) 34.8 Intake & Output: Intake and Output for Last 24 Hours 11/29/24 11/30/24 12/01/24 23:59 23:59 23:59 Intake Total 1900 / 1900 4050 / 4050 1010 / 1010 Output Total 570 / 570 555 / 555 100 / 100 Balance 1330 / 1330 3495 / 3495 910 / 910 Lab / Micro Data 12/01/24 06:46 12/01/24 06:46 Labs: Laboratory Results - last 24 hr 11/30/24 07:14: Total Bilirubin 1.70 H, Direct Bilirubin 1.03 H, AST 91 H, ALT 77 H, Alkaline Phosphatase 67, Total Protein 7.1, Albumin 3.1 L, Globulin 4.0 11/30/24 09:02: Ammonia 15.0 11/30/24 13:20: Urine Creatinine 165.00, Urine Urea Nitrogen 751 12/01/24 06:46: WBC 7.9, RBC 3.43 L, Hgb 9.5 L, Hct 31.3 L, MCV 91.3, MCH 27.7, MCHC 30.4 L, RDW Std Deviation 55.2 H, RDW Coeff of Zacarias 16.6 H, Plt Count 152, MPV 13.2 H, Immature Gran % (Auto) 0.800, Neut % (Auto) 71.4 H, Lymph % (Auto) 14.3 L, [place] % (Auto) 12.9 H, Eos % (Auto) 0.3, Baso % (Auto) 0.3, Absolute Neuts (auto) 5.6, Absolute Lymphs (auto) 1.13, Nucleated RBC % 0.5, Sodium 134 L, Potassium 4.4, Chloride 103, Carbon Dioxide 19.0 L, Anion Gap 12, BUN 60 H, Creatinine 2.40 H, Estim Creat Clear Calc 21.71, Est GFR (MDRD) Af Amer 26 L, Est GFR (MDRD) Non-Af 21 L, BUN/Creatinine Ratio 25.0 H, Glucose 95, Calcium 9.4 Micro: Microbiology 11/25/24 14:39 Urine, Catheterized Urine Culture - Final Culture exhibits no growth. 11/25/24 14:39 Mucosa - Nose SARS-CoV-2, Influenza & RSV (PCR) - Final SARS-CoV-2 (COVID 19) Physical Exam Const alert and no apparent distress Constitutional Narrative: flat affect. non toxic. afebrile. no respiratory distress. HEENT head/scalp atraumatic and moist oral mucous membranes Resp normal respiratory effort, no retractions, no use of accessory muscles and clear to auscultation bilaterally Cardio regular rate, regular rhythm, S1 normal heart sound and S2 normal heart sound GI normal to inspection, nondistended, normoactive bowel sounds, soft to palpation, non-tender and non-distended Extremity normal to inspection, full ROM and no clubbing, cyanosis or edema Neuro oriented x3, CN's II-XII intact bilaterally, moves all extremities, no focal motor deficits and no sensory deficits noted Sensorium / Orientation: awake and alert Assessment & Plan Assessment/Plan (1) FARIBA (acute kidney injury): PLAN: Improved slightly Monitor CT 11/25 showed atrophic left kidney. Nephrology consulted. Plan for renal US. (2) COVID-19: PLAN: Did become hypoxic on 11/30. Though oxygen has worsened. Was not started on treatment. Recheck CXR PLAN: Plan Afib: anticoagulated with apixaban. hypothyroidism: levothyroxine VTE prophylaxis: not indicated as already on apixaban. Charges/Coding Visit Charges Inpatient E&M: 89129 Subs Hosp L2
[2024-12-01] MEDS: Pantoprazole Sodium 40 MG Tablet PO (10:20)
[2024-12-01] MEDS: Metoprolol Tartrate 25 MG Tablet PO ×2 (10:20→22:06)
[2024-12-01] MEDS: Senna/Docusate Sodium 1 Tablet 2 TABLET PO ×2 (10:20→22:06)
[2024-12-01] MEDS: APIXABAN 5 MG TABLET PO ×2 (10:20→22:05)
[2024-12-01] MEDS: Venlafaxine XR 150 MG Capsule PO (10:20)
--- NOTE | 2024-12-01 11:49 | RAD_ITS ---
PROCEDURE: CHEST 1 VIEW (PORTABLE) REASON FOR EXAM: Hypoxia. TECHNIQUE: Single frontal image including the chest and abdomen. COMPARISON: Chest x-ray of 11/25/2024. RAD/Chest 1 View (Portable) IMPRESSION: Left thoracic transvenous pacemaker, with atrial and ventricular leads appears unchanged. Valvular calcification is again seen, probably at the mitral valve. No evidence of pulmonary edema. Lungs are hypoinflated, but appear clear of acute disease. No pleural effusion or pneumothorax is noted. The cardiomediastinal silhouette is stable Reading Location: [address]
--- NOTE | 2024-12-01 11:54 | PCM.CONS.R ---
Assessment & Plan Assessment/Plan (1) FARIBA (acute kidney injury): (2) COVID-19: PLAN: Plan This is a 68-year-old female with past medical history significant proximal atrial fibrillation, secondary heart block with permanent pacemaker, hypothyroidism, GERD, hypertension who was admitted to the hospital for COVID infection, suspected UTI, FARIBA. Nephrology consulted in view of elevated creatinine. Baseline creatinine is around 1 mg/dL however patient was noted to have a creatinine of 1.3-1.4 when admitted end of October 2024 for acute on chronic CHF with preserved EF. Echo EF 75%, left atrium severely enlarged, right atrium moderately enlarged. For this admission, November 25 creatinine was 1.63, creatinine peaked 2.57 11/30 and today SCr 2.4mg/dL. No hyperkalemia or significant acidemia. Patient has Yu, good urine output. Recommend continuing holding home Lasix and Aldactone. CT with IV contrast on 11/25 no hydronephrosis, atrophic left kidney, will order renal ultrasound. UA with 30 protein, no RBCs, 10 occult blood. FARIBA possibly from volume depletion, poor oral intake with concurrent diuretics and possibly from contract exposure. Patient was initially given IV fluids few days ago but now is off IV fluids, off diuretics. Encouraged patient to try and increase oral intake. Blood pressures are acceptable on metoprolol. No acute indication for BAGGAGE PORTER, hopefully SCr peaked and will continue, we will follow trajectory. Further orders forthcoming as hospitalization evolves, thank you for allowing us to participate in the care of Ms. Marion. HPI Consult Data Date of Consult: 12/01/24 HPI Narrative HPI Narrative: JACOBY MARION, is a 68 F who presented to the emergency room on November 25 with complaints of generalized weakness, poor appetite, fatigue, workup in the emergency room positive for COVID infection, creatinine 1.6, BNP 277, UA suspected positive for UTI, patient admitted for further evaluation and treatment. Nephrology consulted in view of elevated creatinine. Patient reports she has not seen a group program manager in past. She reports appetite is poor in the hospital, denies any vomiting or diarrhea. Creatinine today 2.40. [facility] Medical History Intermittent atrial flutter Second degree AV block, Mobitz type II AV node dysfunction Alcohol abuse Nicotine dependence Hepatitis C Cirrhosis of liver CKD (chronic kidney disease) stage 3, GFR 30-59 ml/min Obesity (BMI 30.0-34.9) Dyslipidemia SHOEMAKER (dyspnea on exertion) Bradycardia Other specified disorders of bone density and structure, unspecified site Rheumatoid arthritis Fatigue Unspecified viral hepatitis C without hepatic coma Hypothyroidism Leg cramps Vitamin D deficiency GERD (gastroesophageal reflux disease) HLD (hyperlipidemia) HTN (hypertension) Left leg pain Depression Positive colorectal cancer screening using Cologuard test Home Medications ?Medication ?Instructions ?Recorded ?Last Taken ?Type omeprazole 40 mg capsule,delayed 40 mg PO DAILY acid reflux 06/17/16 11/13/24 History release levothyroxine 25 mcg tablet 25 mcg PO DAILY thyroid 07/28/19 11/13/24 History baclofen 10 mg tablet 10 mg PO QHS pain 07/17/23 11/13/24 History venlafaxine 150 mg 150 mg PO DAILY mood 01/21/24 11/13/24 History capsule,extended release 24 hr metoprolol tartrate 25 mg tablet 25 mg PO BID heart/ blood pressure 02/28/24 11/13/24 Rx #180 tabs spironolactone 25 mg tablet 25 mg PO DAILY water pill #90 tabs 03/06/24 11/13/24 Rx biotin 5 mg capsule 5 mg PO DAILY supplement 11/14/24 11/13/24 History pravastatin 40 mg tablet 40 mg PO DAILY cholesterol 11/14/24 11/13/24 History ferrous sulfate 325 mg (65 mg 325 mg PO QODAY iron #30 tabs 11/15/24 Unknown Rx iron) tablet apixaban 5 mg tablet (Eliquis) 5 mg PO BID blood thinner #180 11/17/24 Unknown Rx TABLETS furosemide 40 mg tablet 40 mg PO QODAY water pill 11/25/24 Unknown History Allergy/AdvReac Type Severity Reaction Status Date / Time No Known Allergies Allergy Verified 11/25/24 13:04 Family History Father Silent myocardial infarction CAD (coronary artery disease) Sister Cancer thyroid Thyroid disorder Mother , 73 Hypertension Grandfather Diabetes Grandmother Diabetes Surgical History Hx of cataract removal with insertion of prosthetic lens Hx of cardiac pacemaker (~11/23/23) S/P eye surgery S/P left breast biopsy S/P excision of lipoma History of ankle surgery S/P wrist surgery H/O lumpectomy H/O arthroscopic knee surgery H/O total hysterectomy Social History Smoking Status: Current some day smoker tobacco type: cigarettes alcohol intake: current alcohol intake frequency: 0-2 drinks per day Alcohol type: beer and hard liquor substance use type: former substance user ROS ROS Narrative As in HPI Physical Exam Narrative Alert and oriented, no apparent distress S1, S2, RRR Lung sounds clear anteriorly. On oxygen via nasal cannula Abdomen soft, nontender Trace edema bilateral lower legs. No edema thighs Indwelling Yu clear yellow urine Lab / Micro Data 12/01/24 06:46 12/01/24 06:46 Labs: Laboratory Results - last 24 hr 11/30/24 13:20: Urine Creatinine 165.00, Urine Urea Nitrogen 751 12/01/24 06:46: WBC 7.9, RBC 3.43 L, Hgb 9.5 L, Hct 31.3 L, MCV 91.3, MCH 27.7, MCHC 30.4 L, RDW Std Deviation 55.2 H, RDW Coeff of Zacarias 16.6 H, Plt Count 152, MPV 13.2 H, Immature Gran % (Auto) 0.800, Neut % (Auto) 71.4 H, Lymph % (Auto) 14.3 L, [place] % (Auto) 12.9 H, Eos % (Auto) 0.3, Baso % (Auto) 0.3, Absolute Neuts (auto) 5.6, Absolute Lymphs (auto) 1.13, Nucleated RBC % 0.5, Sodium 134 L, Potassium 4.4, Chloride 103, Carbon Dioxide 19.0 L, Anion Gap 12, BUN 60 H, Creatinine 2.40 H, Estim Creat Clear Calc 21.71, Est GFR (MDRD) Af Amer 26 L, Est GFR (MDRD) Non-Af 21 L, BUN/Creatinine Ratio 25.0 H, Glucose 95, Calcium 9.4
--- NOTE | 2024-12-01 12:07 | US_ITS ---
PROCEDURE: KIDNEY AND BLADDER REASON FOR EXAM: Acute kidney injury. TECHNIQUE: Bilateral renal ultrasound. COMPARISON: CT abdomen/pelvis from 11/25/2024. FINDINGS: Right kidney measures 10.7 x 5.9 x 6.1 cm. Right renal cortex measures 1.8 cm. No hydronephrosis or definite renal stone is present. Visualized renal cortex is unremarkable. Left kidney measures 9.8 x 5.0 x 4.7 cm. Left renal cortex measures 1.3 cm. No hydronephrosis or definite renal stone is present. Visualized renal cortex is unremarkable. There is a left renal cyst measuring 3.2 x 2.4 x 2.4 cm. Urinary bladder is not visualized. Yu catheter is present. US/Kidney and Bladder IMPRESSION: 1. No evidence of obstructive uropathy bilaterally. 2. Left renal cyst measuring 3.2 cm. Reading Location: [facility]
[2024-12-01] MEDS: 0.9% Saline Lock 10 ML Syringe IV (14:05)
--- NOTE | 2024-12-01 14:09 | CASEMGMT ---
Social Work- SW met with pt to follow up on discharge planning preferences. Pt OT notes indicate pt ambulated 2'. A list of SNF providers including quality and resource use data and consistent with the patient?s preferred geographic region, medical needs, and insurance network were provided from the [facility] Guide. SW asked pt to discuss with sisters and make 2-3 selections. Pt was agreeable to SW reaching out to sister. SW called pt sister, Suma, who reports that she will look over list with sister Juanita and make selections. Suma is agreeable that pt needs SNF at discharge due to her lethargy and decreased ambulation. SW remains available to follow. TANGELA Ochoa
--- NOTE | 2024-12-01 14:46 | NURSING ---
spoke with Stephanie in radiology- no one there who is able to place midline. kaitara taraka notified via [facility] online ordering, requesting call back to the floor.
--- NOTE | 2024-12-01 15:58 | CASEMGMT ---
Social Work- SW met with pt sister, Juanita, to discuss preferences at discharge. Juanita reports that [facility] would be [facility]. Juanita reports that they will look over the list for additional choices. SW to complete referral following renal ultrasound results; when medical plan is determined. MARCELLE remains available to follow. TANGELA Ochoa
[2024-12-01] MEDS: Pravastatin 40 MG Tablet PO (22:09)
[2024-12-02] VITALS (13 sets, daily range): BP systolic 124–140; BP diastolic 62–78; PULSE 68–71; RESP 16–19; TEMP 36.2–36.6; O2SAT 93–100; BMI 34.8
[2024-12-02] MEDS: Acetaminophen 325 MG Tablet 650 MG PO ×2 (01:47→22:04)
[2024-12-02] MEDS: Levothyroxine 25 MCG TABLET PO (05:57)
[2024-12-02] MEDS: Sodium Chloride 0.65% 1 SPRAY SPRAY.BTL NASAL ×2 (06:01→09:12)
[2024-12-02 07:32] LABS: Absolute Lymphocyte Count 0.84 X10^3/uL (0.83-4.51); Absolute Neutrophil Count 5.2 X10^3/uL (2.0-7.7); Basophil# 0.02 X10^3/uL; Basophil% 0.3 % (0-1); Eosinophil# 0.02 X10^3/uL; Eosinophils% 0.3 % (0-5); Hematocrit 31.3 % (37-47); Hemoglobin 9.5 g/dL (12.0-15.0); Lymphocyte # 0.84 X10^3/ul (0.83-4.51); Lymphocyte % 12.3 % (19-41); Mean Corp Hgb Conc 30.4 g/dL (32-36); Mean Corpuscular Hgb 27.5 pg (27.0-32.0); Mean Corpuscular Volume 90.5 fL (81-99); Mean Platelet Vol. 13.4 fl (6.2-12.0); Monocyte# 0.76 X10^3/uL; Monocyte% 11.1 % (0-10); NRBC Flagged by Analyzer 0.4 % (0-5); Neutrophil # 5.18 X10^3/uL (2.7-7.7); Neutrophil % 75.6 % (47-70); Platelet Count 137 K/mm3 (150-450); RBC Distribution Width CV 16.7 % (11.6-14.6); RBC Distribution Width SD 54.5 fl (35.1-43.9); Red Blood Count 3.46 M/mm3 (4.2-5.4); White Blood Count 6.9 K/mm3 (4.4-11.0)
[2024-12-02 08:03] LABS: Anion Gap 12 (5-15); BUN 58 mg/dL (7-18); BUN/Creat Ratio 27.8 RATIO (10-20); Calcium,Total 9.5 mg/dL (8.5-10.1); Chloride 105 mmol/L (98-107); Creatinine, Serum 2.09 mg/dL (0.55-1.02); EST Glomerular Filtration Rate 25 mL/min (>60); Est Glom Filt Rate - Afr Amer 30 mL/min (>60); Estimated Creatinine Clearance 24.93 ml/min; Glucose 85 mg/dL (74-106); Potassium 4.1 mmol/L (3.5-5.1); Sodium Level 135 mmol/L (136-145)
[2024-12-02] MEDS: Pantoprazole Sodium 40 MG Tablet PO (09:12)
[2024-12-02] MEDS: APIXABAN 5 MG TABLET PO ×2 (09:12→21:26)
[2024-12-02] MEDS: Venlafaxine XR 150 MG Capsule PO (09:12)
[2024-12-02] MEDS: Metoprolol Tartrate 25 MG Tablet PO ×2 (09:12→21:26)
[2024-12-02] MEDS: Senna/Docusate Sodium 1 Tablet 2 TABLET PO ×2 (09:12→21:26)
--- NOTE | 2024-12-02 09:34 | PCM.PN.HOSP ---
Reason for Visit Reason for Visit: Diagnoses Hypokalemia (11/25/24) Acute kidney failure, unspecified (11/25/24) Weakness (11/25/24) COVID-19 (11/25/24) Subjective Subjective Denies complaints. Objective Data Objective Data Vital Signs: Vital Signs Temp Pulse Resp BP Pulse Ox O2 Del Method O2 Flow Rate 36.3 C L 68 18 140/62 H 100 Nasal Cannula 3 12/02/24 09:00 12/02/24 09:12 12/02/24 09:00 12/02/24 09:00 12/02/24 09:09 12/02/24 09:09 12/02/24 09:09 Oxygen Flow Rate (L/min) 3 Oxygen Delivery Method Nasal Cannula Weight: 83.7 kg Body Mass Index (BMI) 34.8 Intake & Output: Intake and Output for Last 24 Hours 11/30/24 12/01/24 12/02/24 23:59 23:59 23:59 Intake Total 4050 / 4050 1060 / 1110 150 / 150 Output Total 555 / 555 100 / 100 175 / 175 Balance 3495 / 3495 960 / 1010 - Lab / Micro Data 12/02/24 06:08 12/02/24 06:08 Labs: Laboratory Results - last 24 hr 12/02/24 06:08: WBC 6.9, RBC 3.46 L, Hgb 9.5 L, Hct 31.3 L, MCV 90.5, MCH 27.5, MCHC 30.4 L, RDW Std Deviation 54.5 H, RDW Coeff of Zacarias 16.7 H, Plt Count 137 L, MPV 13.4 H, Immature Gran % (Auto) 0.400, Neut % (Auto) 75.6 H, Lymph % (Auto) 12.3 L, [place] % (Auto) 11.1 H, Eos % (Auto) 0.3, Baso % (Auto) 0.3, Absolute Neuts (auto) 5.2, Absolute Lymphs (auto) 0.84, Nucleated RBC % 0.4, Sodium 135 L, Potassium 4.1, Chloride 105, Carbon Dioxide 19.0 L, Anion Gap 12, BUN 58 H, Creatinine 2.09 H, Estim Creat Clear Calc 24.93, Est GFR (MDRD) Af Amer 30 L, Est GFR (MDRD) Non-Af 25 L, BUN/Creatinine Ratio 27.8 H, Glucose 85, Calcium 9.5 Micro: Microbiology 11/25/24 14:39 Urine, Catheterized Urine Culture - Final Culture exhibits no growth. 11/25/24 14:39 Mucosa - Nose SARS-CoV-2, Influenza & RSV (PCR) - Final SARS-CoV-2 (COVID 19) Radiography Diagnostic Testing: Radiology Impression Chest X-Ray 12/01/24 11:49 IMPRESSION: Left thoracic transvenous pacemaker, with atrial and ventricular leads appears unchanged. Valvular calcification is again seen, probably at the mitral valve. No evidence of pulmonary edema. Lungs are hypoinflated, but appear clear of acute disease. No pleural effusion or pneumothorax is noted. The cardiomediastinal silhouette is stable Reading Location: [address] Renal Ultrasound 12/01/24 12:07 IMPRESSION: 1. No evidence of obstructive uropathy bilaterally. 2. Left renal cyst measuring 3.2 cm. Reading Location: [facility] Physical Exam Const alert Constitutional Narrative: sleeping. easily awoke. HEENT head/scalp atraumatic and moist oral mucous membranes Resp normal respiratory effort, no retractions, no use of accessory muscles and clear to auscultation bilaterally Cardio regular rate, regular rhythm, S1 normal heart sound and S2 normal heart sound GI normal to inspection, nondistended, normoactive bowel sounds, soft to palpation and non-tender Extremity normal to inspection Assessment & Plan Assessment/Plan (1) FARIBA (acute kidney injury): PLAN: Improved slightly Monitor CT 11/25 showed atrophic left kidney. Nephrology consulted. Renal US showing left renal cyst. (2) COVID-19: PLAN: Did become hypoxic on 11/30. Though oxygen has worsened. Was not started on treatment. Repeat CXR unremarkable. PLAN: Plan Afib: anticoagulated with apixaban. hypothyroidism: levothyroxine VTE prophylaxis: not indicated as already on apixaban. To TCU pending insurance authorization. Charges/Coding Visit Charges Inpatient E&M: 55152 Subs Hosp L2
--- NOTE | 2024-12-02 11:33 | CASEMGMT ---
Social Work- SW completed referral to TCU; TCU accepted. SW updated pt and encouraged pt that she will need to continue to put forth effort into participating with therapy to be able to maintain insurance coverage for stay there. Pt agreeable. SW called pt sisters, Suma and Juanita, to update on referral status. SW education that we will need precert prior to discharge and educated on need for participation and progress while at TCU for insurance coverage. Pt sisters report understanding. SW remains available to follow. Plan: TCU; pending precert TANGELA Ochoa
--- NOTE | 2024-12-02 12:59 | PN.RENAL_ITS ---
Subjective Subjective Patient resting quietly in bed. No overnight events. No complaints. Objective Data Objective Data Vital Signs: Vital Signs Temp Pulse Resp BP Pulse Ox O2 Del Method O2 Flow Rate 97.4 F L 68 18 140/62 H 100 Nasal Cannula 3 12/02/24 09:00 12/02/24 09:12 12/02/24 09:00 12/02/24 09:00 12/02/24 09:09 12/02/24 09:09 12/02/24 09:09 Oxygen Flow Rate (L/min) 3 Oxygen Delivery Method Nasal Cannula Weight: 83.7 kg Body Mass Index (BMI) 34.8 Intake & Output: Intake and Output for Last 24 Hours 11/30/24 12/01/24 12/02/24 23:59 23:59 23:59 Intake Total 4050 / 4050 1060 / 1110 200 / 200 Output Total 555 / 555 100 / 100 175 / 175 Balance 3495 / 3495 960 / 1010 Lab / Micro Data 12/02/24 06:08 12/02/24 06:08 Labs: Laboratory Results - last 24 hr 12/02/24 06:08: WBC 6.9, RBC 3.46 L, Hgb 9.5 L, Hct 31.3 L, MCV 90.5, MCH 27.5, MCHC 30.4 L, RDW Std Deviation 54.5 H, RDW Coeff of Zacarias 16.7 H, Plt Count 137 L, MPV 13.4 H, Immature Gran % (Auto) 0.400, Neut % (Auto) 75.6 H, Lymph % (Auto) 12.3 L, [place] % (Auto) 11.1 H, Eos % (Auto) 0.3, Baso % (Auto) 0.3, Absolute Neuts (auto) 5.2, Absolute Lymphs (auto) 0.84, Nucleated RBC % 0.4, Sodium 135 L , Potassium 4.1, Chloride 105, Carbon Dioxide 19.0 L, Anion Gap 12, BUN 58 H, C reatinine 2.09 H, Estim Creat Clear Calc 24.93, Est GFR (MDRD) Af Amer 30 L, Est GFR (MDRD) Non-Af 25 L, BUN/Creatinine Ratio 27.8 H, Glucose 85, Calcium 9.5 Micro: Microbiology 11/25/24 14:39 Urine, Catheterized Urine Culture - Final Culture exhibits no growth. 11/25/24 14:39 Mucosa - Nose SARS-CoV-2, Influenza & RSV (PCR) - Final SARS-CoV-2 (COVID 19) Radiography Diagnostic Testing: Radiology Impression Chest X-Ray 12/01/24 11:49 IMPRESSION: Left thoracic transvenous pacemaker, with atrial and ventricular leads appears unchanged. Valvular calcification is again seen, probably at the mitral valve. No evidence of pulmonary edema. Lungs are hypoinflated, but appear clear of acute disease. No pleural effusion or pneumothorax is noted. The cardiomediastinal silhouette is stable Reading Location: [id number] Renal Ultrasound 12/01/24 12:07 IMPRESSION: 1. No evidence of obstructive uropathy bilaterally. 2. Left renal cyst measuring 3.2 cm. Reading Location: [facility] Physical Exam Narrative Alert and oriented, no apparent distress S1, S2, RRR Lung sounds clear anteriorly. On oxygen via nasal cannula 3 L Abdomen soft, nontender Trace edema bilateral lower legs. No edema thighs Indwelling Yu clear yellow urine Assessment & Plan Assessment/Plan (1) FARIBA (acute kidney injury): (2) COVID-19: PLAN: Plan This is a 68-year-old female with past medical history significant proximal atrial fibrillation, secondary heart block with permanent pacemaker, hypothyroidism, GERD, hypertension who was admitted to the hospital for COVID infection, suspected UTI, FARIBA. Nephrology consulted in view of elevated creatinine. -Nonoliguric acute kidney injury; baseline creatinine is around 1 mg/dL however patient was noted to have a creatinine of 1.3-1.4 when admitted end of October 2024 for acute on chronic CHF with preserved EF. Echo EF 75%, left atrium severely enlarged, right atrium moderately enlarged. For this admission, November 25 creatinine was 1.63, creatinine peaked 2.57 11/30 and today SCr 2.09mg/dL. No hyperkalemia or significant acidemia. Patient has Yu, good urine output. Continue to hold home Lasix and Aldactone. CT with IV contrast on 11/25 no hydronephrosis, atrophic left kidney. Renal ultrasound: Right kidney 10.7 cm, left kidney 9.8 cm, no hydronephrosis, no evidence of obstructive uropathy bilaterally. UA with 30 protein, no RBCs, 10 occult blood. FARIBA possibly from volume depletion, poor oral intake with concurrent diuretics and possibly from contract exposure. Patient was initially given IV fluids few days ago but now is off IV fluids, off diuretics. Chest x-ray yesterday no evidence of pulmonary edema, clear of acute disease. Encouraged patient to try and increase oral intake. Blood pressures are acceptable on metoprolol. Renal function improving.
--- NOTE | 2024-12-02 13:21 | TREXTCAR_ITS ---
Diet Diet Order/Speech Therapy: 12/01/24 12:35 Diet: Regular - General Type of Dietary Supplement:: [place] Breakfast Diet Comments: vanilla w/ meals tid Routine Orders/Code Status Routine Lab Work: CBC and BMP Code Status: DNRCC-A (no intubation. ) DC O2, CPAP, BIPAP needs RN Home O2 Qualification: Home O2 Qualification: Is the patient on home oxygen No 11/30/24 14:32 Home O2 Qualification: AT REST 1- Pulse Ox at rest 96 11/30/24 14:32 Home O2 Qualification: WITH AMBULATION 1- Pulse Ox with ambulation 86 11/30/24 14:32 1- Oxygen Flow Rate with 0 11/30/24 14:32 ambulation 2- Pulse Ox with ambulation 95 11/30/24 14:32 2- Oxygen Flow Rate with 3 11/30/24 14:32 ambulation Home O2 Discharge instructions: Yes Type of respiratory needs?: Oxygen Oxygen frequency: Continuous Continuous oxygen liters per minute: 3 Therapies Weight Bearing: Full weight bearing Physical Therapy: Eval and Treat Occupational Therapy: Eval and Treat Problem/Diagnosis (1) FARIBA (acute kidney injury): Status: Acute Code(s): N17.9 - Acute kidney failure, unspecified Plan: Improved slightly Monitor CT 11/25 showed atrophic left kidney. Nephrology consulted. Renal US showing left renal cyst. (2) COVID-19: Status: Acute Code(s): U07.1 - COVID-19 Plan: Did become hypoxic on 11/30. Though oxygen has worsened. Was not started on treatment. Repeat CXR unremarkable. Plan Afib: anticoagulated with apixaban. hypothyroidism: levothyroxine VTE prophylaxis: not indicated as already on apixaban. To TCU pending insurance authorization. Allergies/Procedures Done in Hospital Allergies No Known Allergies Allergy (Verified 11/25/24 13:04) Procedures: None Type of Care/Length of Stay Estimated LOS: Convalescent Care Less Than 30 days Type of Care Needed: Skilled Rehab Potential: Fair Prognosis: Good Additional Orders/Day of Discharge Day of Discharge: 12/02/24 Dietary and Speech Recommendations Dietitian Recommendations/Changes: Will liberalize diet to Regular to help optimize pt po intake Discontinue 120mL Ensure Plus High Protein TID vanilla with medpass d/t refusals - offer vanilla CIB w/ meals instead Discharge Plan Admission Admit Date/Time: 11/25/24 17:49 Primary Reason for Your Visit: COVID FARIBA Attending Provider: Temo Kim Primary Care Provider: Hannah Ferrari Consulting Providers: Marija Aceves; Esperanza Pham; Rusty Mayo; Rajeev Casas; Luz Maria Edgar; Av Castro; Margret Villa; Nicole Tierney; Parker Chester; Tai Leary; Palak Kumar; Nelly Fritz Discharge Orders/Prescriptions Prescriptions: New Sore Throat (benzocaine-menth) 15-3.6 mg Lozenge 1 jonathan mucous membrane Q2H PRN PRN (Reason: SORE THROAT) Qty: 0 0RF Continued venlafaxine 150 mg capsule,extended release 24hr 150 mg PO DAILY omeprazole 40 MG capsule,delayed release(DR/EC) 40 mg PO DAILY levothyroxine 25 MCG tablet 25 mcg PO DAILY pravastatin 40 mg tablet 40 mg PO DAILY ferrous sulfate 325 mg (65 mg iron) tablet 325 mg PO QODAY Qty: 30 0RF metoprolol tartrate 25 mg tablet 25 mg PO BID Qty: 180 3RF Eliquis 5 mg tablet 5 mg PO BID Qty: 180 3RF Discontinued baclofen 10 mg tablet 10 mg PO QHS biotin 5 mg capsule 5 mg PO DAILY furosemide 40 mg tablet 40 mg PO QODAY spironolactone 25 mg tablet 25 mg PO DAILY Qty: 90 3RF Referrals / Follow Up: Hannah Ferrari MD [Primary Care Provider] - Within 2 Weeks Disposition Disposition (needs filled in before D/C Order can be placed): Intermediate Facility
[2024-12-02] MEDS: Pravastatin 40 MG Tablet PO (21:26)
[2024-12-03] VITALS (14 sets, daily range): BP systolic 82–147; BP diastolic 64–110; PULSE 68–83; RESP 12–28; TEMP 36.6–36.9; O2SAT 40–99; BMI 34.3
[2024-12-03] MEDS: Levothyroxine 25 MCG TABLET PO (06:13)
[2024-12-03 06:43] LABS: Absolute Lymphocyte Count 0.86 X10^3/uL (0.83-4.51); Absolute Neutrophil Count 4.9 X10^3/uL (2.0-7.7); Basophil# 0.02 X10^3/uL; Basophil% 0.3 % (0-1); Eosinophil# 0.01 X10^3/uL; Eosinophils% 0.1 % (0-5); Hemoglobin 9.4 g/dL (12.0-15.0); Lymphocyte # 0.86 X10^3/ul (0.83-4.51); Lymphocyte % 12.7 % (19-41); Mean Corp Hgb Conc 29.4 g/dL (32-36); Mean Platelet Vol. 13.2 fl (6.2-12.0); Monocyte# 0.93 X10^3/uL; Monocyte% 13.7 % (0-10); NRBC Flagged by Analyzer 0.7 % (0-5); Neutrophil # 4.91 X10^3/uL (2.7-7.7); Neutrophil % 72.6 % (47-70); Platelet Count 143 K/mm3 (150-450); RBC Distribution Width CV 16.7 % (11.6-14.6); RBC Distribution Width SD 56.1 fl (35.1-43.9); Red Blood Count 3.48 M/mm3 (4.2-5.4); White Blood Count 6.8 K/mm3 (4.4-11.0)
[2024-12-03 07:13] LABS: Anion Gap 11 (5-15); BUN 56 mg/dL (7-18); BUN/Creat Ratio 26.8 RATIO (10-20); Calcium,Total 9.7 mg/dL (8.5-10.1); Chloride 104 mmol/L (98-107); Creatinine, Serum 2.09 mg/dL (0.55-1.02); EST Glomerular Filtration Rate 25 mL/min (>60); Est Glom Filt Rate - Afr Amer 30 mL/min (>60); Estimated Creatinine Clearance 24.74 ml/min; Glucose 126 mg/dL (74-106); Potassium 4.5 mmol/L (3.5-5.1); Sodium Level 134 mmol/L (136-145)
--- NOTE | 2024-12-03 07:16 | PN.HOSP_ITS ---
Reason for Visit Reason for Visit: Diagnoses Hypokalemia (11/25/24) Acute kidney failure, unspecified (11/25/24) Weakness (11/25/24) COVID-19 (11/25/24) Subjective Subjective No new complaints. Objective Data Objective Data Vital Signs: Vital Signs Temp Pulse Resp BP Pulse Ox O2 Del Method O2 Flow Rate 36.6 C 69 20 H 133/64 H 99 Room Air 2 12/03/24 02:41 12/03/24 06:19 12/03/24 02:51 12/03/24 02:41 12/03/24 06:19 12/03/24 06:19 12/03/24 02:41 Oxygen Flow Rate (L/min) 2 Oxygen Delivery Method Room Air Weight: 82.5 kg Body Mass Index (BMI) 34.3 Intake & Output: Intake and Output for Last 24 Hours 12/01/24 12/02/24 12/03/24 23:59 23:59 23:59 Intake Total 1060 / 1110 250 / 325 125 / 125 Output Total 100 / 100 475 / 625 250 / 250 Balance 960 / 1010 -225 / -300 -125 / -125 Lab / Micro Data 12/03/24 06:14 12/03/24 06:14 Labs: Laboratory Results - last 24 hr 12/02/24 06:08: WBC 6.9, RBC 3.46 L, Hgb 9.5 L, Hct 31.3 L, MCV 90.5, MCH 27.5, MCHC 30.4 L, RDW Std Deviation 54.5 H, RDW Coeff of Zacarias 16.7 H, Plt Count 137 L, MPV 13.4 H, Immature Gran % (Auto) 0.400, Neut % (Auto) 75.6 H, Lymph % (Auto) 12.3 L, [place] % (Auto) 11.1 H, Eos % (Auto) 0.3, Baso % (Auto) 0.3, Absolute Neuts (auto) 5.2, Absolute Lymphs (auto) 0.84, Nucleated RBC % 0.4, Sodium 135 L , Potassium 4.1, Chloride 105, Carbon Dioxide 19.0 L, Anion Gap 12, BUN 58 H, C reatinine 2.09 H, Estim Creat Clear Calc 24.93, Est GFR (MDRD) Af Amer 30 L, Est GFR (MDRD) Non-Af 25 L, BUN/Creatinine Ratio 27.8 H, Glucose 85, Calcium 9.5 12/03/24 06:14: Sodium 134 L, Potassium 4.5, Chloride 104, Carbon Dioxide 18.0 L , Anion Gap 11, BUN 56 H, Creatinine 2.09 H, Estim Creat Clear Calc 24.74, Est GFR (MDRD) Af Amer 30 L, Est GFR (MDRD) Non-Af 25 L, BUN/Creatinine Ratio 26.8 H , Glucose 126 H, Calcium 9.7 Micro: Microbiology 11/25/24 14:39 Urine, Catheterized Urine Culture - Final Culture exhibits no growth. 11/25/24 14:39 Mucosa - Nose SARS-CoV-2, Influenza & RSV (PCR) - Final SARS-CoV-2 (COVID 19) Physical Exam Const alert and no apparent distress Resp normal respiratory effort, no retractions, no use of accessory muscles and clear to auscultation bilaterally Cardio regular rate, regular rhythm, S1 normal heart sound and S2 normal heart sound GI normal to inspection, nondistended, normoactive bowel sounds, soft to palpation, non-tender and non-distended Extremity normal to inspection Assessment & Plan Assessment/Plan (1) FARIBA (acute kidney injury): PLAN: Improved slightly Monitor CT 11/25 showed atrophic left kidney. Nephrology consulted. Renal US showing left renal cyst. (2) COVID-19: PLAN: Did become hypoxic on 11/30. Though oxygen has worsened. Was not started on treatment. Repeat CXR unremarkable. PLAN: Plan Afib: anticoagulated with apixaban. hypothyroidism: levothyroxine VTE prophylaxis: not indicated as already on apixaban. To TCU pending insurance authorization. Charges/Coding Visit Charges Inpatient E&M: 01932 Subs Hosp L2
[2024-12-03] MEDS: Senna/Docusate Sodium 1 Tablet 2 TABLET PO (09:05)
[2024-12-03] MEDS: APIXABAN 5 MG TABLET PO (09:05)
[2024-12-03] MEDS: Pantoprazole Sodium 40 MG Tablet PO (09:05)
[2024-12-03] MEDS: Sodium Chloride 0.65% 1 SPRAY SPRAY.BTL NASAL (09:05)
[2024-12-03] MEDS: Venlafaxine XR 150 MG Capsule PO (09:05)
[2024-12-03] MEDS: Metoprolol Tartrate 25 MG Tablet PO (09:11)
--- NOTE | 2024-12-03 09:51 | NURSING ---
This RN was in room when Amisha RUSHING went in. Pt was refusing to get up and move. With a lot of encouragement pt did move to chair to eat breakfast. She was havng increase SOB when ambulating so I placed her back on 2 L of oxygen for comfort.
--- NOTE | 2024-12-03 12:53 | NURSING ---
warehouse and receiving supervisor updated on patient's condition
[2024-12-03] MEDS: Albuterol 2.5 MG/3 ML VIAL.NEB. INHALATION (13:02)
[2024-12-03 13:21] LABS: Allen Test Positive; Base Excess -21 mmol/L (-2 to +2); Bicarbonate 10.5 mmol/L (22-26); Blood Gas Specimen Type ART; Mode Not entered; O2 Delivery Device NRB; PO2 204 mmHG (75-100); SITE L Brach; SO2 99 % (95-99); Total Carbon Dioxide 12 mmol/L; pCO2 44.7 mmHg (35-45); pH 6.98 (7.35-7.45)
--- NOTE | 2024-12-03 13:23 | NURSING ---
laborer beam house updated on patient.
--- NOTE | 2024-12-03 13:36 | NURSING ---
distribution warehouse manager updated need icu bed.
--- NOTE | 2024-12-03 13:49 | CASEMGMT ---
Social Work- SW updated by charge nurse that pt transferring to ICU. SW updated TCU admissions, who had just received precert. Precert cancelled. Pt will need a new referral to TCU when medically stable. MARCELLE updated ICU SW. TANGELA Ochoa
--- NOTE | 2024-12-03 13:55 | NURSING ---
Staff alert call to pt room, she had fallen while going to the bathroom with CLIENT EXPERIENCE CONSULTANT and sister. Pt did not hit head when she went down. Vital signs were taken. Pt put back to bed and resp was called. Blood gas was done and Dr. Kim was called to see pt. After he saw her he ordred bipap and to go to the ICU. Pt will go to room .
--- NOTE | 2024-12-03 14:26 | NURSING ---
Report called to Angely in ICU pt transferred to ICU room 1.
--- NOTE | 2024-12-03 14:28 | CASEMGMT ---
Handoff given to [employer] CM.
--- NOTE | 2024-12-03 14:42 | RAD_ITS ---
PROCEDURE: CHEST 1 VIEW (PORTABLE) REASON FOR EXAM: Hypoxia. TECHNIQUE: AP portable upright chest. COMPARISON: Chest x-ray of 12/01/2024. RAD/Chest 1 View (Portable) IMPRESSION: Left thoracic transvenous pacemaker with atrial and ventricular leads appear st able. The cardiomediastinal silhouette is unchanged. Increased bibasilar airspace disease is seen, [id number]-right. Althoug h most probably representing atelectasis, can not exclude the presence of pneumonitis, particularly in the left lower lobe. No pulmonary edema is clearly seen. No pleural effusion or pneumothorax is evident. Reading Location: [id number]
--- NOTE | 2024-12-03 14:50 | RAD_ITS ---
PROCEDURE: ABDOMEN SINGLE VIEW (PORTABLE) REASON FOR EXAM: Abdominal pain. TECHNIQUE: Two-view portable supine abdomen. COMPARISON: Abdomen study of 12/27/2023 RAD/Abdomen Single View (Portable) IMPRESSION: Progressive worsening of degenerative changes lumbar spine noted The bowel-gas pattern is unremarkable. No mass or mass effect is seen. Reading Location: [id number]
[2024-12-03 15:24] LABS: Absolute Lymphocyte Count 0.79 X10^3/uL (0.83-4.51); Basophil# 0.02 X10^3/uL; Basophil% 0.3 % (0-1); Eosinophil# 0.01 X10^3/uL; Eosinophils% 0.1 % (0-5); Hematocrit 34.3 % (37-47); Hemoglobin 9.7 g/dL (12.0-15.0); Lymphocyte # 0.79 X10^3/ul (0.83-4.51); Mean Corp Hgb Conc 28.3 g/dL (32-36); Mean Corpuscular Hgb 27.2 pg (27.0-32.0); Mean Corpuscular Volume 96.1 fL (81-99); Mean Platelet Vol. 13.3 fl (6.2-12.0); Monocyte% 10.1 % (0-10); NRBC Flagged by Analyzer 2.3 % (0-5); Neutrophil # 5.95 X10^3/uL (2.7-7.7); Neutrophil % 75.3 % (47-70); Platelet Count 162 K/mm3 (150-450); RBC Distribution Width CV 16.7 % (11.6-14.6); RBC Distribution Width SD 58.8 fl (35.1-43.9); Red Blood Count 3.57 M/mm3 (4.2-5.4); White Blood Count 7.9 K/mm3 (4.4-11.0)
[2024-12-03 15:29] LABS: Prothrombin Time (Protime)PT. 47.2 SECONDS (11.7-14.9)
[2024-12-03] MEDS: Sodium Bicarbonate 8.4% 50 ML Syringe 50 MEQ IV (15:57)
[2024-12-03 16:01] LABS: ALB/GLOB Ratio 0.8 RATIO (0.9-2.4); AST(SGOT) 69 U/L (15-37); Alanine Aminotransfer ALT/SGPT 78 U/L (13-56); Albumin, Serum 3.1 g/dL (3.2-5.0); Alkaline Phosphatase 68 U/L (45-117); Anion Gap 17 (5-15); BUN 59 mg/dL (7-18); BUN/Creat Ratio 22.2 RATIO (10-20); Calcium,Total 9.4 mg/dL (8.5-10.1); Chloride 104 mmol/L (98-107); Creatinine, Serum 2.66 mg/dL (0.55-1.02); EST Glomerular Filtration Rate 19 mL/min (>60); Est Glom Filt Rate - Afr Amer 23 mL/min (>60); Estimated Creatinine Clearance 19.44 ml/min; Globulin 4.1 g/dL (2.2-4.2); Glucose 104 mg/dL (74-106); Potassium 5.5 mmol/L (3.5-5.1); Protein, Total 7.2 g/dL (6.4-8.2); Sodium Level 135 mmol/L (136-145); Troponin-I HS 209 pg/mL (3.0-54.0)
[2024-12-03] MEDS: morphine (oral solution) 10MG/0.5ML Syringe 5 MG SL/PO (18:26)
--- NOTE | 2024-12-03 20:55 | EXP.PCM_ITS ---
Preliminary Cause of Preliminary Cause of Preliminary Cause of : Mycardial infarction. Date of Admission: 11/25/24 Principle Diagnosis Problem List: Active and Suspected Problems (Updated 12/01/24 @ 08:[address] Temo Kim, DO) COVID-19 (Acute) Weakness (Acute) Hypokalemia (Acute) FARIBA (acute kidney injury) (Acute) Hospital Course This was a 68-year-old female was admitted August 25 for generalized weakness and was likely attributable to her having COVID-19 Most likely due to dehydration as she did have some FARIBA. Earlier in the week as the patient had improved, plan was for her to go to the transitional care unit pending insurance authorization which unfortunately took several days. Though on the , the patient had a dramatic turn for the worse. Patient was going to the bathroom and then suddenly became very weak, hypoxic. Patient had a port. We did do an ABG that showed that she was acidotic with a pH of 6.9 her pO2 was actually 200 at that time. The decision was made to then transfer her to the intensive care unit where she was put on BiPAP and received an amp of bicarb. She did have la bs drawn that showed an elevated troponin of 209.. And had conversations with the the patient's sisters that the concern is that something catastrophic happened. The etiology of this catastrophe was not clear. But she became hypotensive, at 1 point she had her eyes were turning [id number] uncontrollably though she did become slightly more alert but still is very agitated and her pulse ox was reading into the 60s. I verified the patient's CODE STATUS was with her family members which was DNR Comfort Care arrest no intubation. We did talk about putting her on pressors but given her overall rapidly deteriorating status, I recommended making her comfortable. After discussion among some cells they agreed and patient's oxygen was de-escalated to nasal cannula and comfort medications were ordered and the patient at 1852 on December 03, 2024. Is unclear if the patient sustained a myocardial infarction or if that was just due to demand due to her hypotension but being that we could not identify any other source because of her instability and inability to send her off for images including CAT scans unfortunate that this all I could really determine at this point. Visit Charges Inpatient E&M: 26712 Disch Hosp >30min
== END 2024-12-03 20:38 | DRG 682 ==
LOC: ED 15:12 → MS3 18:27 → ICU 12-03 14:19
PROVIDERS: Student in an Organized Health Care Education/Training Program; Admitting Provider Internal Medicine; Emergency Provider Surgery; PCP Internal Medicine
DX: N17.9 Acute kidney failure, unspecified (principal); U07.1 COVID-19; I21.9 Acute myocardial infarction, unspecified; I13.0 Hypertensive heart and chronic kidney disease with heart failure and stage 1 through stage 4 chronic kidney disease, or unspecified chronic kidney disease; E87.1 Hypo-osmolality and hyponatremia; I50.32 Chronic diastolic (congestive) heart failure; N39.0 Urinary tract infection, site not specified; D69.6 Thrombocytopenia, unspecified; N18.30 Chronic kidney disease, stage 3 unspecified; E03.9 Hypothyroidism, unspecified; F32.A Depression, unspecified; I48.0 Paroxysmal atrial fibrillation; K21.9 Gastro-esophageal reflux disease without esophagitis; E87.6 Hypokalemia; F17.210 Nicotine dependence, cigarettes, uncomplicated; F41.9 Anxiety disorder, unspecified; Z66 Do not resuscitate; Z79.01 Long term (current) use of anticoagulants; Z79.899 Other long term (current) drug therapy; Z95.0 Presence of cardiac pacemaker
CPT/HCPCS: 36415; 36600; 71045; 74018; 74177; 76770; 80048; 80053; 80076; 81001; 82140; 82570; 82803; 83735; 83880; 84484; 84540; 85025; 85610; 85730; 87086; 87631; 93005; 94002; 94640; 94668; 97110; 97116; 97162; 97166; 97530; 97535; 97802; 99285; 99406; Q9967; A4216; J2405